=== PATIENT | male | born 1980 | race Caucasian/White ===

== ENCOUNTER 2016-11-20 08:48 | Inpatient (IN) | payer MEDICARE, MEDICAID ==
[~2016-11-20] VITALS: Ht 180.3 cm; Wt 114.1 kg
[2016-11-20] MEDS ORDERED: levETIRAcetam 500 MG/5 ML VIAL (KEPPRA IV)(J1953) As Ordered ONE ×2 (09:03→14:11)
[2016-11-20] MEDS ORDERED: LORazepam 2 MG/ML VIAL (J2060) As Ordered ONE (09:03)
--- NOTE | 2016-11-20 09:28 | REP ---
Clinical: Chest pain. Comparison: 04/14/2014. Findings: Tracheostomy overlies the airway. Mediastinum and cardiac silhouette stable. Lung josue demonstrate chronic changes. No acute consolidation, effusion, or pneumothorax. Skeletal structures intact. Impression: No acute cardiopulmonary process. Signed by Alexei Teixeira MD 11/20/2016 09:19 A
[2016-11-20 09:55] LABS: ALBUMIN 4.6 GM/DL (3.2-5.2); ALBUMIN/GLOBULIN RATIO 1.15 (1.00-1.93); ALKALINE PHOSPHATASE 125 U/L (45-117); ALT/SGPT 56 U/L (12-78); ANION GAP 29 MEQ/L (8-16); AST/SGOT 38 U/L (15-37); BILIRUBIN,DIRECT 0.1 MG/DL (0.0-0.2); BILIRUBIN,TOTAL 0.3 MG/DL (0.2-1.0); BLOOD UREA NITROGEN 5 MG/DL (7-18); CALCIUM LEVEL 9.2 MG/DL (8.5-10.1); CARBON DIOXIDE LEVEL 9 MEQ/L (21-32); CHLORIDE LEVEL 97 MEQ/L (98-107); CREATININE FOR GFR 1.27 MG/DL (0.70-1.30); GLOMERULAR FILTRATION RATE > 60.0 (>60); GLUCOSE, FASTING 129 MG/DL (70-105); POTASSIUM SERUM 4.1 MEQ/L (3.5-5.1); SODIUM LEVEL 135 MEQ/L (136-145); TOTAL PROTEIN 8.6 GM/DL (6.4-8.2)
[2016-11-20 10:06] LABS: MEAN CORPUSCULAR HGB CONC 33.6 g/dl (32.0-36.5); MEAN CORPUSCULAR VOLUME 95.2 fl (80.0-96.0); PLATELET COUNT, AUTOMATED 309 k/mm3 (150-450); RED CELL DISTRIBUTION WIDTH 12.7 % (11.5-14.5); WHITE BLOOD COUNT 12.7 K/mm3 (4.0-10.0)
[2016-11-20 10:21] LABS: AMPHETAMINES LEVEL URINE NEGATIVE (NEGATIVE); BENZODIAZEPINES URINE NEGATIVE (NEGATIVE); COCAINE METABOLITE URINE NEGATIVE (NEGATIVE); CONTROL LINE INT CTR LINE PRESENT; METHADONE URINE NEGATIVE (NEGATIVE); OPIATES URINE NEGATIVE (NEGATIVE); TRICYCLIC ANTIDEPRESS URINE NEGATIVE (NEGATIVE)
--- NOTE | 2016-11-20 10:27 | REP ---
Clinical: Seizures . Comparison: 04/14/2014 . Findings: Bilateral neurostimulator probes extend via parietal approach into the temporal lobes unchanged from prior examination. Significant metallic streak artifact along the right hemisphere due to stimulator control unit limit evaluation. Visualized weldon-white differentiation and intracranial parenchyma appear normal/stable. No acute intracranial hemorrhage or mass/mass effect is appreciated. No ventriculomegaly or hydrocephalous. No extra-axial collection identified. Impression: No obvious acute intracranial pathology. Signed by Alexei Teixeira MD 11/20/2016 10:19 A
[2016-11-20 10:32] LABS: ABG DEVICE NASAL CANN; ABG HCO3 19.6 MEQ/L (22.0-26.0); ABG PARTIAL PRESSURE CO2 35.8 mmHg (35.0-45.0); ABG PARTIAL PRESSURE O2 126.6 mmHg (75.0-100.0); ABG STANDARD HCO3 20.5 MEQ/L (22.0-26.0); ABG TOTAL CO2 20.7 MEQ/L (22.0-29.0); ABG pH (ARTERIAL) 7.357 UNITS (7.350-7.450)
[2016-11-20] MEDS ORDERED: KETOROLAC 30 MG/ML VIAL (J1885) As Ordered ONE (12:11)
[2016-11-20] MEDS ORDERED: LYRI300C PO (12:39)
[2016-11-20] MEDS ORDERED: MELA1TAB15 PO (12:39)
[2016-11-20] MEDS ORDERED: OLAN20TA PO (12:39)
[2016-11-20] MEDS ORDERED: KEPP1000 PO ×2 (12:39)
[2016-11-20] MEDS ORDERED: OXCA600T PO (12:39)
[2016-11-20] MEDS ORDERED: ISOVUE-370 76% 100ML VIAL (Q9967) As Ordered ONE (13:49)
--- NOTE | 2016-11-20 14:22 | REP ---
Clinical: Chest pain. Technique: Axial contrast enhanced images from the thoracic inlet to the upper abdomen using 100 ml Isovue 370 intravenous contrast material with coronal and sagittal re-formations. Findings: Satisfactory enhancement of the pulmonary vasculature is achieved and no filling defects are identified to suggest pulmonary embolus. Moderate left lower lobe, smaller right lower lobe and minimal right upper lobe consolidations consistent with multifocal pneumonia / atelectasis. No pleural effusion/reaction or pneumothorax. Thoracic aorta is normal caliber without aneurysm or dissection. Heart and pericardium are normal. No adenopathy. Impression: No evidence for pulmonary embolus. Left lower lobe > right lower lobe >> right upper lobe consolidation/atelectasis Signed by Alexei Teixeira MD 11/20/2016 02:13 P
[2016-11-20] MEDS ORDERED: NS 1,000 ML IV SCH (14:42)
[2016-11-20] MEDS ORDERED: ACETAMINOPHEN TAB 650MG DOSE (2X325MG) PO PRN (14:45)
[2016-11-20] MEDS ORDERED: OXcarbazepine 300 MG TAB PO ONE (15:00)
[2016-11-20] MEDS ORDERED: LORazepam 2 MG/ML VIAL (J2060) IV PRN (15:30)
[2016-11-20] MEDS ORDERED: PIPERACILLIN/TAZOBACTAM SOD 3.375 GM in D5W MINI-BAG PLUS 50 ML IV SCH (17:00)
[2016-11-20] MEDS ORDERED: MULTIVITAMIN -ADULT INJECTION 10 ML, THIAMINE INJection 100 MG, FOLIC ACID 1 MG in NS 1... IV ONE (18:00)
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
--- NOTE | 2016-11-20 18:07 | ECGEPIP ---
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
[2016-11-20 18:26] VITALS: BP 146/85
[2016-11-20 18:50] VITALS: BP 146/85
[2016-11-20 20:00] VITALS: BP 136/77
[2016-11-20] MEDS ORDERED: ZOSYN 3.375 GM VIAL (J2543) As Ordered ONE (20:14)
[2016-11-20] MEDS ORDERED: levETIRAcetam 250MG TABLET (KEPPRA) As Ordered ONE (20:43)
[2016-11-20] MEDS: CYANOCOBALAMIN 500 MCG TAB PO SCH (20:55)
[2016-11-20] MEDS: PIPERACILLIN/TAZOBACTAM SOD 3.375 GM in D5W MINI-BAG PLUS 50 ML IV SCH (20:55)
[2016-11-20] MEDS: OLANZapine 10 MG TAB PO SCH (20:55)
[2016-11-20] MEDS: OXcarbazepine 300 MG TAB PO SCH (20:56)
[2016-11-20] MEDS: levETIRAcetam 250MG TABLET (KEPPRA) PO SCH (21:00)
[2016-11-20] MEDS ORDERED: IPRATROPIUM 0.5MG/ALBUTEROL 2.5MG INH SOL UD 3ML (DUONEB)(J7620) NEB PRN (21:30)
[2016-11-20] MEDS ORDERED: IPRATROPIUM 0.5MG/ALBUTEROL 2.5MG INH SOL UD 3ML (DUONEB)(J7620) As Ordered ONE (23:45)
[2016-11-21] VITALS (7 sets, daily range): BP systolic 110–141; BP diastolic 67–90
[2016-11-21] MEDS ORDERED: ZOSYN 3.375 GM VIAL (J2543) As Ordered ONE ×3 (03:14→14:57)
[2016-11-21] MEDS: PIPERACILLIN/TAZOBACTAM SOD 3.375 GM in D5W MINI-BAG PLUS 50 ML IV SCH ×4 (03:18→21:16)
[2016-11-21 06:49] LABS: MEAN CORPUSCULAR HGB CONC 35.8 g/dl (32.0-36.5); WHITE BLOOD COUNT 8.6 K/mm3 (4.0-10.0)
[2016-11-21 06:58] LABS: MEAN CORPUSCULAR VOLUME 89.3 fl (80.0-96.0)
[2016-11-21 07:16] LABS: ANION GAP 8 MEQ/L (8-16); BLOOD UREA NITROGEN 6 MG/DL (7-18); CALCIUM LEVEL 8.7 MG/DL (8.5-10.1); CARBON DIOXIDE LEVEL 25 MEQ/L (21-32); CHLORIDE LEVEL 108 MEQ/L (98-107); CREATININE FOR GFR 0.79 MG/DL (0.70-1.30); GLOMERULAR FILTRATION RATE > 60.0 (>60); GLUCOSE, FASTING 89 MG/DL (70-105); POTASSIUM SERUM 3.6 MEQ/L (3.5-5.1); SODIUM LEVEL 141 MEQ/L (136-145)
[2016-11-21] MEDS: levETIRAcetam 250MG TABLET (KEPPRA) PO SCH ×2 (09:10→21:16)
[2016-11-21] MEDS: MULTIVITAMINS/MINERALS THERAP 1 TAB PO SCH (09:10)
[2016-11-21] MEDS: THIAMINE 100 MG TAB PO SCH (09:11)
[2016-11-21] MEDS: ENOXAPARIN 40 MG/0.4 ML SYRINGE (J1650) SC SCH (09:11)
[2016-11-21] MEDS: CYANOCOBALAMIN 500 MCG TAB PO SCH ×2 (09:11→21:13)
[2016-11-21] MEDS: OXcarbazepine 300 MG TAB PO SCH ×2 (09:21→21:12)
--- NOTE | 2016-11-21 15:10 | EDDOCDS ---
Physician Documentation [facility] Name: Glen Santizo Age: 36 yrs Sex: Male : 1980 Arrival Date: 11/20/2016 Time: 08:48 Bed Admit Hold Private MD: Disposition: 11/20/16 15:20 Hospitalization ordered by Brianda Greene for Inpatient Admission. Preliminary diagnosis is Epilepsy and recurrent seizures. - Bed requested for PCU. - Status is Inpatient Admission. me3 - Condition is Stable. - Problem is new. - Symptoms have improved. Historical: - Allergies: no known allergies; - PMHx: TBI; Seizure Disorder; - PSHx: Tracheostomy; Craniotomy; BRAIN STIMULATOR; - Social history: Smoking status: Patient uses tobacco products, heavy tobacco smoker. Patient uses alcohol on a daily basis. No barriers to communication noted, Speaks appropriately for age. - Family history: Not pertinent. - : The pt / caregiver states he / she is not on anticoagulants. Unable to Verify Home Med List with the patient / caregiver. - Exposure Risk Screening:: None identified. Vital Signs: 11/20 09:12 BP 124 / 67 (auto/); ml6 09:12 Pulse 130 MON; Resp 18; Temp 97.3(R); Pulse Ox 92% on R/A; Pain 0/10; ml6 09:27 BP 132 / 68 (auto/); ml6 09:27 Pulse 122 MON; Resp 18; Pulse Ox 92% on R/A; Pain 0/10; ml6 09:57 BP 127 / 80 (auto/); ml6 09:57 Pulse 112 MON; Resp 20; Pulse Ox 85% on R/A; ml6 10:27 BP 132 / 85 (auto/); ml6 10:27 Pulse 100 MON; Resp 16; Pulse Ox 93% on 100% Non-rebreather mask; Pain 0/10; ml6 10:57 BP 131 / 86 (auto/); ml6 10:57 Pulse 92 MON; Pulse Ox 98% on 100% Non-rebreather mask; ml6 11:27 BP 135 / 87 (auto/); ml6 11:28 Pulse 90 MON; Pulse Ox 86% on R/A; ml6 11:29 Pulse Ox 94% on 100% Non-rebreather mask; ml6 11:57 BP 138 / 79 (auto/); ml6 11:57 Pulse 84 MON; Pulse Ox 97% on 100% Non-rebreather mask; ml6 12:27 BP 143 / 80 (auto/); ml6 12:27 Pulse 88 MON; Pulse Ox 98% on 100% Non-rebreather mask; Pain 0/10; ml6 12:57 BP 170 / 86 (auto/); ml6 12:57 Pulse 104 MON; Pulse Ox 90% on 100% Non-rebreather mask; ml6 13:27 BP 147 / 78 (auto/); ml6 13:27 Pulse 88 MON; Pulse Ox 99% on 100% Non-rebreather mask; ml6 13:57 BP 124 / 68 (auto/); ml6 13:57 Pulse 102 MON; Resp 18; Pulse Ox 93% on 50% Venturi mask; ml6 15:14 BP 141 / 92 (auto/); ml6 15:14 Pulse 88 MON; Resp 18; Temp 98.4(O); Pulse Ox 92% on 50% Venturi mask; Pain 0/10; ml6 MDM: 08:56 Certified Paralegal/Pulse Ox/q 15 min VS ordered. fg 08:56 Accucheck ordered. fg 08:56 IV Saline Lock ordered. fg 08:56 Oxygen at 4L/Min NC or Home dosage ordered. fg 08:56 Rhythm Strip to chart ordered. fg 08:56 levETIRAcetam (20mg/kg) 1000 mg IVPB at 400 mL/hr once over 15 mins; dilute in 100mL NS fg or D5W ordered. 08:56 LORazepam 0.5 mg IVP once ordered. fg 08:57 Restraints, Adult: Mechanical - 4 points up to 1 hr (poses imminent danger of harming fg others). May use manual restraints to secure restraint devices. Pt. monitoring per RN policy. ordered. 08:57 Acetaminophen Level Ordered. EDMS 08:57 CBC with Diff Ordered. EDMS 08:57 Cardiac Injury Profile Ordered. EDMS 08:57 Drug Eval Toxicology ED Only Ordered. EDMS 08:57 Liver Profile Ordered. EDMS 08:57 MED Profile Ordered. EDMS 08:57 Salicylate Level Ordered. EDMS 08:57 Thyroid Stimulating Hormone Ordered. EDMS 08:57 Troponin Ordered. EDMS 08:57 Urinalysis Ordered. EDMS 08:57 Levetiracetam (short red top tube) Ordered. EDMS 08:57 Urine Culture Ordered. EDMS 08:58 Chest, 1 View Ordered. EDMS 08:58 ECG WITH READING ER PHYS+CARDIAG ordered. EDMS 09:04 OXCARBAZEPINE Ordered. EDMS 09:13 NS 0.9% 1000 ml IV at bolus once ordered. fg 09:14 CT Head Without Contrast Ordered. EDMS 09:25 Fingerstick Blood Sugar Ordered. EDMS 10:06 Ethyl Alcohol (ethanol) Ordered. EDMS 10:08 DIFFERENTIAL NO CHARGE Ordered. EDMS 10:08 PLATELET ESTIMATE Ordered. EDMS 10:14 Oxygen at 15 Liters/Minute NRB Mask ordered. ml6 10:15 -Arterial Blood Gas Ordered. EDMS 10:57 Financial registration complete. lg 10:59 [facility] Payment Agreement was scanned into [employer] and attached to record. lg 12:08 ketorolac 30 mg IVP once ordered. fg 13:02 BED REQUEST+ADM ordered. EDMS 13:29 CT Chest Angio R/O PE Ordered. EDMS 14:09 levETIRAcetam (20mg/kg) 1000 mg IVPB at 400 mL/hr once over 15 mins; dilute in 100mL NS fg or D5W ordered. 14:12 OXcarbazepine 900 mg PO once ordered. fg 14:46 Admission / Observation Status ordered. EDMS 14:46 NPO DIET ordered. EDMS 19:32 COMPLETE BLOOD COUNT Ordered. EDMS 19:32 BASIC METABOLIC PROFILE Ordered. EDMS 19:42 T-Sheet-- Draft Copy was scanned into [employer] and attached to record. klr 11/21 06:56 CREATINE PHOSPHOKINASE Ordered. EDMS 06:56 C REACTIVE PROTEIN QUANTITATIV Ordered. EDMS Administered Medications: 11/20 09:07 Drug: LORazepam 0.5 mg [lorazepam 2 mg/mL injection solution (0.25 mL)] Route: IVP; js13 Site: left hand; 09:08 Drug: levETIRAcetam (20mg/kg) 1000 mg [levetiracetam 500 mg/5 mL intravenous solution] js13 Route: IVPB; Rate: 400 mL/hr; Infused Over: 15 mins; Site: left hand; 09:22 Drug: NS 0.9% 1000 ml [sodium chloride 0.9 % intravenous solution] Route: IV; Rate: ml6 bolus; Site: left hand; 12:13 Drug: ketorolac 30 mg [ketorolac 30 mg/mL (1 mL) injection solution (1 mL)] Route: IVP; ml6 Site: left hand; 14:15 Drug: levETIRAcetam (20mg/kg) 1000 mg [levetiracetam 500 mg/5 mL intravenous solution] js13 Route: IVPB; Rate: 400 mL/hr; Infused Over: 15 mins; Site: right forearm; 15:19 Drug: OXcarbazepine 900 mg Route: PO; ml6 Signatures: Dispatcher [employer] EDMS Jeanine Amador, Teddy Reg lg Maura Canales,HEAD OF SALES PROMOTION HEAD OF SALES PROMOTION me3 Linda Haney mt4 Casimiro Ram, POONAM RN ml6 Jaja Mendoza MD MD Nisa Decker Jennifer RN js13 The chart was reviewed and I authenticate all verbal orders and agree with the evaluation and treatment provided.Corrections: (The following items were deleted from the chart) 10:08 10:06 URINE CULTURE+SYBIL ordered. EDMS EDMS 10:09 10:06 URINALYSIS+LAB ordered. EDMS EDMS 16:06 16:03 C REACTIVE PROTEIN QUANTITATIV ordered. EDMS EDMS 11/21 06:56 06:46 CREATINE PHOSPHOKINASE ordered. EDMS EDMS 06:57 06:46 C REACTIVE PROTEIN QUANTITATIV ordered. EDMS EDMS Attachments: 11/20 10:59 [facility] [place] [facility] Payment Agreement lg 19:42 T-Sheet-- Draft Copy klr MTDD
--- NOTE | 2016-11-21 15:11 | EDDOCDS ---
Nurse's Notes [facility] Name: Shubham Burnett Age: 36 yrs Sex: Male : 1980 Arrival Date: 11/20/2016 Time: 08:48 Bed Admit Hold Private MD: Diagnosis: Epilepsy and recurrent seizures Presentation: 11/20 09:18 Presenting complaint: Patient states: EMS brought patient, patient Actively seizing, ml6 per sister patient was drinking. Adult Sepsis Screening: The patient does not have new or worsening altered mentation. Patient's respiratory rate is less than 22. Systolic blood pressure is greater than 100. Patient has a qSOFA score of 0- Negative Sepsis Screen. Suicide/Homicide risk assessment- the patient denies having any suicidal and/or homicidal ideations and does not present with any other emotional, behavioral or mental health complaints. Status: Patient is not a representative personal service or dependent. Transition of care: patient was not received from another setting of care. 09:18 Acuity: SHERITA Level 2 ml6 09:18 Method Of Arrival: Ambulance 6 09:18 Care prior to arrival: See EMS report. FS 143. ml6 Triage Assessment: 09:18 General: Appears in no apparent distress, Behavior is uncooperative, postictal. Pain: ml6 Denies pain. HIV screening NA for this visit Offered previously. Neurological: No deficits noted. Level of Consciousness is awake, alert, Oriented to person, place, time. Cardiovascular: No deficits noted. Capillary refill < 3 seconds is brisk in bilateral fingers toes Heart tones S1 S2 present Edema is absent. Pulses are all present. Rhythm is regular. Respiratory: No deficits noted. Airway is patent Respiratory effort is even, unlabored, Respiratory pattern is regular, symmetrical, Breath sounds are clear bilaterally. GI: No deficits noted. Abdomen is flat, non- distended Bowel sounds present X 4 quads. Historical: - Allergies: no known allergies; - PMHx: TBI; Seizure Disorder; - PSHx: Tracheostomy; Craniotomy; BRAIN STIMULATOR; - Social history: Smoking status: Patient uses tobacco products, heavy tobacco smoker. Patient uses alcohol on a daily basis. No barriers to communication noted, Speaks appropriately for age. - Family history: Not pertinent. - : The pt / caregiver states he / she is not on anticoagulants. Unable to Verify Home Med List with the patient / caregiver. - Exposure Risk Screening:: None identified. Screenin:47 Screening information is obtained from the patient. Fall risk: At risk due to prior ml6 history of falls. Assistance ADL's: requires no assistance with activities of daily living. Abuse/DV Screen: The patient / caregiver reports he/she is: not in a situation that causes fear, pain or injury. Nutritional screening: No deficits noted. Advance Directives: Currently, there is no health care proxy. home support is adequate. Assessment: 09:18 General: see triage assessment. ml6 10:16 General: patient placed on NRB at 15l/min, SaO2 85% RA, Dr. Mendoza notified of change, . ml6 10:17 General: Appears in no apparent distress, Behavior is appropriate for age, cooperative. ml6 Pain: Denies pain. Neurological: No deficits noted. Level of Consciousness is awake, alert, Oriented to person, place, time, Mica [employer] Blasting are equal bilaterally Moves all extremities. Full function Gait is steady, Speech is normal, Facial symmetry appears normal, Pupils are PERRLA. Cardiovascular: No deficits noted. Respiratory: No deficits noted. 11:50 General: at this time pt's friend asked this rn if the pt could remove his mask. this mb9 rn advised friend that he shouldn't remove the mask. when this rn went into assess pt pt had mask off and his spo2 was 92-93% on room air. pt was told he needs to return the mask. pt complied. . 12:00 General: Appears in no apparent distress, comfortable, Behavior is appropriate for age, ml6 cooperative. Pain: Denies pain. Neurological: No deficits noted. Level of Consciousness is awake, alert, Oriented to person, place, time. Cardiovascular: No deficits noted. Respiratory: No deficits noted. Airway is patent. 13:00 General: called to room by patient's family, states that patient is having his usual ml6 seizure activity, patient is spitting in a cup and legs have become ridgid. Dr. Mendoza called to room, incident lasted 2 minutes. 14:00 General: Appears in no apparent distress, comfortable, Behavior is appropriate for age, ml6 cooperative. Pain: Denies pain. Neurological: No deficits noted. Level of Consciousness is awake, alert, Oriented to person, place, time, Mica Miner Blasting are equal bilaterally Moves all extremities. Full function Gait is steady. Cardiovascular: No deficits noted. Respiratory: No deficits noted. Airway is patent Respiratory effort is even, unlabored, Respiratory pattern is regular, symmetrical, Breath sounds are clear bilaterally. 15:00 Reassessment: Patient appears in no apparent distress at this time. Patient denies pain ml6 at this time. Patient states feeling better. Patient states symptoms have improved. Vital Signs: 09:12 BP 124 / 67 (auto/); ml6 09:12 Pulse 130 MON; Resp 18; Temp 97.3(R); Pulse Ox 92% on R/A; Pain 0/10; ml6 09:27 BP 132 / 68 (auto/); ml6 09:27 Pulse 122 MON; Resp 18; Pulse Ox 92% on R/A; Pain 0/10; ml6 09:57 BP 127 / 80 (auto/); ml6 09:57 Pulse 112 MON; Resp 20; Pulse Ox 85% on R/A; ml6 10:27 BP 132 / 85 (auto/); ml6 10:27 Pulse 100 MON; Resp 16; Pulse Ox 93% on 100% Non-rebreather mask; Pain 0/10; ml6 10:57 BP 131 / 86 (auto/); ml6 10:57 Pulse 92 MON; Pulse Ox 98% on 100% Non-rebreather mask; ml6 11:27 BP 135 / 87 (auto/); ml6 11:28 Pulse 90 MON; Pulse Ox 86% on R/A; ml6 11:29 Pulse Ox 94% on 100% Non-rebreather mask; ml6 11:57 BP 138 / 79 (auto/); ml6 11:57 Pulse 84 MON; Pulse Ox 97% on 100% Non-rebreather mask; ml6 12:27 BP 143 / 80 (auto/); ml6 12:27 Pulse 88 MON; Pulse Ox 98% on 100% Non-rebreather mask; Pain 0/10; ml6 12:57 BP 170 / 86 (auto/); ml6 12:57 Pulse 104 MON; Pulse Ox 90% on 100% Non-rebreather mask; ml6 13:27 BP 147 / 78 (auto/); ml6 13:27 Pulse 88 MON; Pulse Ox 99% on 100% Non-rebreather mask; ml6 13:57 BP 124 / 68 (auto/); ml6 13:57 Pulse 102 MON; Resp 18; Pulse Ox 93% on 50% Venturi mask; ml6 15:14 BP 141 / 92 (auto/); ml6 15:14 Pulse 88 MON; Resp 18; Temp 98.4(O); Pulse Ox 92% on 50% Venturi mask; Pain 0/10; ml6 Vitals: 09:21 Log In Time N/A - ambulance arrival. ml6 ED Course: 08:49 Patient visited by Sheila Reilly PCA. ar3 08:49 Patient moved to Waiting ar3 08:49 Patient moved to 4 ar3 08:57 Jaja Mendoza MD is Attending Physician. fg 08:57 Patient visited by Jaja Mendoza MD. fg 09:09 EKG done. (by ED staff). Reviewed by Jaja Mendoza MD. jlf 09:16 Patient visited by Michelle Stevenson PCA. jlf 09:18 Inserted peripheral IV: 20gauge IV in left antecubital area and blood collected. ml6 Patient tolerated the procedure well. 09:18 Inserted peripheral IV: 18gauge IV in right forearm Patient tolerated the procedure ml6 well. No procedures done that require assistance. 09:19 Triage Initiated ml6 09:47 Patient visited by Casimiro Ram RN. ml6 09:47 Chest, 1 View Returned. EDMS 10:15 Patient visited by Michelle Stevenson PCA. jlf 10:16 DIFFERENTIAL NO CHARGE Sent. ml6 10:26 -Arterial Blood Gas Sent. lb 10:44 O2 via non-rebreather \T\ 15L/min. ml6 10:48 Patient visited by Casimiro Ram RN. ml6 10:55 CT Head Without Contrast Returned. EDMS 10:59 Patient name changed from Shubham\S\\S\Darlyn\S\ to Shubham\S\L\S\Darlyn. EDMS 10:59 [place] [place] was scanned into [employer] and attached to record. lg 11:25 Patient visited by Casimiro Ram RN. ml6 11:58 Patient visited by Casimiro Ram RN. ml6 13:08 Patient visited by Jaja Mendoza MD. fg 13:44 Patient visited by Casimiro Ram RN. ml6 14:15 Patient visited by Casimiro Ram RN. ml6 14:18 Brianda Greene imaging administrator. ys2 14:31 CT Chest Angio R/O PE Returned. EDMS 15:19 Brianda Greene is Hospitalizing Provider. fg 17:49 Patient moved to Admit Hold js13 18:33 EKG-ADULT Returned. EDMS 19:42 T-Sheet-- Draft Copy was scanned into [employer] and attached to record. klr 11/21 14:54 The patient / caregiver is instructed regarding the plan of care and ED course. Patient me3 has correct armband on for positive identification. Placed in gown. Seizure precautions initiated. Administered Medications: 11/20 09:07 Drug: LORazepam 0.5 mg [lorazepam 2 mg/mL injection solution (0.25 mL)] Route: IVP; js13 Site: left hand; 09:08 Drug: levETIRAcetam (20mg/kg) 1000 mg [levetiracetam 500 mg/5 mL intravenous solution] js13 Route: IVPB; Rate: 400 mL/hr; Infused Over: 15 mins; Site: left hand; 09:22 Drug: NS 0.9% 1000 ml [sodium chloride 0.9 % intravenous solution] Route: IV; Rate: ml6 bolus; Site: left hand; 12:13 Drug: ketorolac 30 mg [ketorolac 30 mg/mL (1 mL) injection solution (1 mL)] Route: IVP; ml6 Site: left hand; 14:15 Drug: levETIRAcetam (20mg/kg) 1000 mg [levetiracetam 500 mg/5 mL intravenous solution] js13 Route: IVPB; Rate: 400 mL/hr; Infused Over: 15 mins; Site: right forearm; 15:19 Drug: OXcarbazepine 900 mg Route: PO; ml6 RT: 10:26 ABG's drawn from right radial artery allens test done and positive pressure held for 5 lb minutes no bleeding noted pressure bandage applied specimen sent pt. tolerated well. Order Results: Lab Order: Acetaminophen Level; SPEC'M 11/20/16 09:13 Test: ACETAMINOPHEN LEVEL; Value: < 2.0; Range: 10.0-30.0; Abnormal: Below low normal; Units: UG/ML; Status: F Lab Order: CBC with Diff; SPEC'M 11/20/16 09:13 Test: WHITE BLOOD COUNT; Value: 12.7; Range: 4.0-10.0; Abnormal: Above high normal; Units: K/mm3; Status: F Test: RED BLOOD COUNT; Value: 5.53; Range: 4.30-6.10; Units: M/mm3; Status: F Test: HEMOGLOBIN; Value: 17.7; Range: 14.0-18.0; Units: g/dl; Status: F Test: HEMATOCRIT; Value: 52.7; Range: 42.0-52.0; Abnormal: Above high normal; Units: %; Status: F Test: MEAN CORPUSCULAR VOLUME; Value: 95.2; Range: 80.0-96.0; Units: fl; Status: F Test: MEAN CORPUSCULAR HEMOGLOBIN; Value: 32.0; Range: 27.0-33.0; Units: pg; Status: F Test: MEAN CORPUSCULAR HGB CONC; Value: 33.6; Range: 32.0-36.5; Units: g/dl; Status: F Test: RED CELL DISTRIBUTION WIDTH; Value: 12.7; Range: 11.5-14.5; Units: %; Status: F Test: PLATELET COUNT, AUTOMATED; Value: 309; Range: 150-450; Units: k/mm3; Status: F Test: NEUTROPHILS; Value: 84; Range: 35-75; Abnormal: Above high normal; Units: %; Status: F Test: LYMPHOCYTES; Value: 12; Range: 16-52; Abnormal: Below low normal; Units: %; Status: F Test: MONOCYTES; Value: 3; Range: 0-8; Units: %; Status: F Test: ATYPICAL LYMPH; Value: 1; Range: 0-5; Units: %; Status: F Test: RBC MORPHOLOGY; Value: NORMAL; Status: F Lab Order: Cardiac Injury Profile; SPECM 11/20/16 09:13 Test: CPK CREATINE PHOSPHOKINASE; Value: 280; Range: 39-308; Units: U/L; Status: F Test: CK-MB VALUE MASS; Value: 1.3; Range: 0.0-3.6; Units: NG/ML; Status: F Test: MB/CK RELATIVE INDEX; Value: 0.46; Range: < OR =4; Status: F Test Note: ; DIAGNOSIS CRITERIA MMB ng/ml Relative Index (RI) NON-AMI < or = 5 N/A KELSEY ZONE > 5 < or = 4 AMI > 5 > 4 Lab Order: Drug Eval Toxicology ED Only; SPEC'M 11/20/16 09:13 Test: AMPHETAMINES LEVEL URINE; Value: NEGATIVE; Range: NEGATIVE; Status: F Test: BARBITURATES URINE; Value: NEGATIVE; Range: NEGATIVE; Status: F Test: BENZODIAZEPINES URINE; Value: NEGATIVE; Range: NEGATIVE; Status: F Test: CANNABINOIDS URINE; Value: NEGATIVE; Range: NEGATIVE; Status: F Test: COCAINE METABOLITE URINE; Value: NEGATIVE; Range: NEGATIVE; Status: F Test: METHADONE URINE; Value: NEGATIVE; Range: NEGATIVE; Status: F Test: OPIATES URINE; Value: NEGATIVE; Range: NEGATIVE; Status: F Test: TRICYCLIC ANTIDEPRESS URINE; Value: NEGATIVE; Range: NEGATIVE; Status: F Test Note: ; ALL PRESUMPTIVE POSITIVE FINDINGS ARE UNCONFIRMED NORMAL VALUES THRESHOLD IN NG/ML AMPHETAMINES 1000 METHAMPHETAMINES 1000 BARBITURATES 300 BENZODIAZEPINES 300 CANNABINOIDS (THC) 50 COCAINE METABOLITE 300 METHADONE 300 OPIATES 300 PHENCYCLIDINE 25 TRICYCLIC ANTIDEPRESSANTS 1000 RESULTS ARE FOR MEDICAL PURPOSES ONLY. ALL URINE SPECIMENS WILL BE SAVED FOR 3 DAYS. IF CONFIRMATION OF A PRESUMPTIVE POSTIVE SCREEN RESULT IS DESIRED, CALL CHEMISTRY ([phone]) AND REQUEST URINE TO BE SENT TO REFERENCE LAB. FOR A LIST OF CLOSELY RELATED COMPOUNDS PLEASE CALL THE LAB. Lab Order: Liver Profile; SPEC'M 11/20/16 09:13 Test: AST/SGOT; Value: 38; Range: 15-37; Abnormal: Above high normal; Units: U/L; Status: F Test: ALT/SGPT; Value: 56; Range: 12-78; Units: U/L; Status: F Test: ALKALINE PHOSPHATASE; Value: 125; Range: 45-117; Abnormal: Above high normal; Units: U/L; Status: F Test: BILIRUBIN,TOTAL; Value: 0.3; Range: 0.2-1.0; Units: MG/DL; Status: F Test: BILIRUBIN,DIRECT; Value: 0.1; Range: 0.0-0.2; Units: MG/DL; Status: F Test: TOTAL PROTEIN; Value: 8.6; Range: 6.4-8.2; Abnormal: Above high normal; Units: GM/DL; Status: F Test: ALBUMIN; Value: 4.6; Range: 3.2-5.2; Units: GM/DL; Status: F Test: ALBUMIN/GLOBULIN RATIO; Value: 1.15; Range: 1.00-1.93; Status: F Lab Order: MED Profile; SPEC11/20/16 09:13 Test: GLUCOSE, FASTING; Value: 129; Range: 70-105; Abnormal: Above high normal; Units: MG/DL; Status: F Test: BLOOD UREA NITROGEN; Value: 5; Range: 7-18; Abnormal: Below low normal; Units: MG/DL; Status: F Test: CREATININE FOR GFR; Value: 1.27; Range: 0.70-1.30; Units: MG/DL; Status: F Test: GLOMERULAR FILTRATION RATE; Value: > 60.0; Range: >60; Status: F Test: SODIUM LEVEL; Value: 135; Range: 136-145; Abnormal: Below low normal; Units: MEQ/L; Status: F Test: POTASSIUM SERUM; Value: 4.1; Range: 3.5-5.1; Units: MEQ/L; Status: F Test: CHLORIDE LEVEL; Value: 97; Range: 98-107; Abnormal: Below low normal; Units: MEQ/L; Status: F Test: CARBON DIOXIDE LEVEL; Value: 9; Range: 21-32; Abnormal: Below low normal; Units: MEQ/L; Status: F Test: ANION GAP; Value: 29; Range: 8-16; Abnormal: Above high normal; Units: MEQ/L; Status: F Test: CALCIUM LEVEL; Value: 9.2; Range: 8.5-10.1; Units: MG/DL; Status: F Test Note: ; Units are mL/min/1.73 m2 Chronic Kidney Disease Staging per NKF: Stage I & II GFR >=60 Normal to Mildly Decreased Stage III GFR 30-59 Moderately Decreased Stage IV GFR 15-29 Severely Decreased Stage V GFR <15 Very Little GFR Left ESRD GFR <15 on INSOLE REINFORCER Lab Order: Salicylate Level; SPEC11/20/16 09:13 Test: SALICYLATE LEVEL; Value: 5.2; Range: 5.0-30.0; Units: MG/DL; Status: F Lab Order: Thyroid Stimulating Hormone; SPEC'M 11/20/16 09:13 Test: THYROID STIMULATING HORMONE; Value: 1.550; Range: 0.358-3.740; Units: uIU/ML; Status: F Lab Order: Troponin; SPEC'M 11/20/16 09:13 Test: TROPONIN I; Value: < 0.02; Range: < 0.10; Units: NG/ML; Status: F Test Note: ; Troponin I Reference Interval for [employer] LOCI: 99th Percentile= 0.00-0.045 ng/ml Risk Stratification: <= 0.10 ng/ml Decreased Risk for Adverse Clinical Events. 0.10-1.50 ng/ml Increased Risk for Adverse Clinical Events. Evaluation of additional criterion and/or repeat testing in 2-6 hours is suggested to rule out myocardial damage. >= 1.50 ng/ml Indicative of Myocardial Injury. Lab Order: Urinalysis; SPEC'M 11/20/16 09:13 Test: APPEARANCE, URINE; Value: CLEAR; Range: CLEAR; Status: F Test: COLOR, URINE; Value: YELLOW; Range: YELLOW; Status: F Test: PH,URINE; Value: 5.0; Range: 5.0-9.0; Units: UNITS; Status: F Test: SPECIFIC GRAVITY URINE AUTO; Value: 1.012; Range: 1.002-1.035; Status: F Test: PROTEIN, URINE AUTO; Value: 1+; Range: NEGATIVE; Abnormal: Above high normal; Units: mg/dL; Status: F Test: GLUCOSE, URINE (UA) AUTO; Value: NEGATIVE; Range: NEGATIVE; Units: mg/dL; Status: F Test: KETONE, URINE AUTO; Value: TRACE; Range: NEGATIVE; Abnormal: Above high normal; Units: mg/dL; Status: F Test: UROBILINOGEN, URINE AUTO; Value: 0.2; Range: 0.0-2.0; Units: mg/dL; Status: F Test: BILIRUBIN, URINE AUTO; Value: NEGATIVE; Range: NEGATIVE; Status: F Test: NITRITE, URINE AUTO; Value: NEGATIVE; Range: NEGATIVE; Status: F Test: LEUKOCYTE ESTERASE, URINE AUTO; Value: NEGATIVE; Range: NEGATIVE; Status: F Test: BLOOD, URINE BLOOD; Value: 1+; Range: NEGATIVE; Abnormal: Above high normal; Status: F Test: SPERM, URINE AUTO; Range: NONE; Status: I Test: WBC, URINE AUTO; Value: 1; Range: 0-3; Units: /HPF; Status: F Test: RBC, URINE AUTO; Value: 3; Range: 0-3; Units: /HPF; Status: F Test: BACTERIA, URINE AUTO; Value: NEGATIVE; Range: NEGATIVE; Status: F Test: SQUAMOUS EPITHELIAL CELL UR AU; Value: 0; Range: 0-6; Units: /HPF; Status: F Test: MUCUS, URINE; Value: SMALL; Range: NEGATIVE; Status: F Test: HYALINE CAST, URINE AUTO; Value: 6; Range: 0-1; Units: /LPF; Status: F Lab Order: Urine Culture; [facility] 11/20/16 09:13 Test: URINE CULTURE; Value: <EXTERNAL COMMENT eCWMed> FULL REPORT IN LAB NOTES (eCW and Medent).; Status: F Test: URINE CULTURE; Value: URINE CULTURE RESULT NO GROWTH CLINICAL SIGNIFICANCE 1 ORGANISM; Status: F Lab Order: Fingerstick Blood Sugar; [facility] 11/20/16 08:56 Test: BEDSIDE GLUCOSE; Value: 146; Range: 70-105; Abnormal: Above high normal; Units: MG/DL; Status: F Lab Order: Ethyl Alcohol (ethanol); [facility] 11/20/16 09:10 Test: ETHYL ALCOHOL (ETHANOL); Value: < 0.003; Range: 0.000-0.010; Units: %; Status: F Lab Order: PLATELET ESTIMATE; [facility] 11/20/16 09:13 Test: PLATELET ESTIMATE; Value: NORMAL; Range: NORMAL; Status: F Test Note: ; NO PLAT CLUMPING NOTED ON SLIDE. Lab Order: -Arterial Blood Gas; 11/20/16 10:24 Test: ABG pH (ARTERIAL); Value: 7.357; Range: 7.350-7.450; Units: UNITS; Status: F Test: ABG PARTIAL PRESSURE CO2; Value: 35.8; Range: 35.0-45.0; Units: mmHg; Status: F Test: ABG PARTIAL PRESSURE O2; Value: 126.6; Range: 75.0-100.0; Abnormal: Above high normal; Units: mmHg; Status: F Test: ABG TOTAL CO2; Value: 20.7; Range: 22.0-29.0; Abnormal: Below low normal; Units: MEQ/L; Status: F Test: ABG HCO3; Value: 19.6; Range: 22.0-26.0; Abnormal: Below low normal; Units: MEQ/L; Status: F Test: ABG BASE EXCESS; Value: -5.0; Range: -2.0-2.0; Abnormal: Below low normal; Status: F Test: ABG STANDARD HCO3; Value: 20.5; Range: 22.0-26.0; Abnormal: Below low normal; Units: MEQ/L; Status: F Test: ABG O2 SATURATION; Value: 98.6; Range: 95.0-99.0; Units: %; Status: F Test: ABG DEVICE; Value: NASAL JASPREET; Status: F Lab Order: C REACTIVE PROTEIN QUANTITATIV; SPEC' 11/20/16 09:13 Test: C REACTIVE PROTEIN QUANTITATIV; Value: 0.54; Range: 0.00-0.30; Abnormal: Above high normal; Units: MG/DL; Status: F Lab Order: COMPLETE BLOOD COUNT; SPEC11/21/16 06:34 Test: WHITE BLOOD COUNT; Value: 8.6; Range: 4.0-10.0; Units: K/mm3; Status: F Test: RED BLOOD COUNT; Value: 4.77; Range: 4.30-6.10; Units: M/mm3; Status: F Test: HEMOGLOBIN; Value: 15.2; Range: 14.0-18.0; Abnormal: Delta; Units: g/dl; Status: F Test: HEMATOCRIT; Value: 42.6; Range: 42.0-52.0; Units: %; Status: F Test: MEAN CORPUSCULAR VOLUME; Value: 89.3; Range: 80.0-96.0; Abnormal: Delta; Units: fl; Status: F Test: MEAN CORPUSCULAR HEMOGLOBIN; Value: 32.0; Range: 27.0-33.0; Units: pg; Status: F Test: MEAN CORPUSCULAR HGB CONC; Value: 35.8; Range: 32.0-36.5; Units: g/dl; Status: F Test: RED CELL DISTRIBUTION WIDTH; Value: 13.0; Range: 11.5-14.5; Units: %; Status: F Test: PLATELET COUNT, AUTOMATED; Value: 194; Range: 150-450; Abnormal: Delta; Units: k/mm3; Status: F Lab Order: BASIC METABOLIC PROFILE; SPEC'11/21/16 06:34 Test: GLUCOSE, FASTING; Value: 89; Range: 70-105; Units: MG/DL; Status: F Test: BLOOD UREA NITROGEN; Value: 6; Range: 7-18; Abnormal: Below low normal; Units: MG/DL; Status: F Test: CREATININE FOR GFR; Value: 0.79; Range: 0.70-1.30; Units: MG/DL; Status: F Test: GLOMERULAR FILTRATION RATE; Value: > 60.0; Range: >60; Status: F Test: SODIUM LEVEL; Value: 141; Range: 136-145; Units: MEQ/L; Status: F Test: POTASSIUM SERUM; Value: 3.6; Range: 3.5-5.1; Units: MEQ/L; Status: F Test: CHLORIDE LEVEL; Value: 108; Range: 98-107; Abnormal: Above high normal; Units: MEQ/L; Status: F Test: CARBON DIOXIDE LEVEL; Value: 25; Range: 21-32; Units: MEQ/L; Status: F Test: ANION GAP; Value: 8; Range: 8-16; Units: MEQ/L; Status: F Test: CALCIUM LEVEL; Value: 8.7; Range: 8.5-10.1; Units: MG/DL; Status: F Test Note: ; Units are mL/min/1.73 m2 Chronic Kidney Disease Staging per NKF: Stage I & II GFR >=60 Normal to Mildly Decreased Stage III GFR 30-59 Moderately Decreased Stage IV GFR 15-29 Severely Decreased Stage V GFR <15 Very Little GFR Left ESRD GFR <15 on INSOLE REINFORCER Lab Order: CREATINE PHOSPHOKINASE; SPEC' 11/21/16 06:34 Test: CPK CREATINE PHOSPHOKINASE; Value: 271; Range: 39-308; Units: U/L; Status: F Lab Order: C REACTIVE PROTEIN QUANTITATIV; SPEC11/21/16 06:34 Test: C REACTIVE PROTEIN QUANTITATIV; Value: 5.97; Range: 0.00-0.30; Abnormal: Above high normal; Units: MG/DL; Status: F Radiology Order: Chest, 1 View Test: Chest, 1 View REASON FOR EXAMINATION: Chest Pain; Clinical: Chest pain.; ; Comparison: 04/14/2014.; ; Findings:; Tracheostomy overlies the airway. Mediastinum and cardiac silhouette stable.; Lung josue demonstrate chronic changes. No acute consolidation, effusion, or; pneumothorax. 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: ; : 1980 Requested By: JAJA Parada; Order Number: [id number] Reading MD: Jose Gibson; Measurements; Intervals [place]; Rate: 136 P:; ME: 0 QRS: 71; QRSD: 105 T: 46; QT: 307; QTc: 463; Interpretive Statements; SINUS TACHYCARDIA; BORDERLINE RAD; INCOMPLETE RIGHT BUNDLE BRANCH BLOCK; ; Electronically Signed On 11-20-2016 18:07:08 EST by Jose Gibson; Radiology Order: CT Head Without Contrast Test: CT Head Without Contrast REASON FOR EXAMINATION: seizure; Clinical: Seizures .; ; Comparison: 04/14/2014 .; ; Findings:; Bilateral neurostimulator probes extend via parietal approach into the temporal; lobes unchanged from prior examination. Significant metallic streak artifact; along the right hemisphere due to stimulator control unit limit evaluation.; Visualized kelsey-white differentiation and intracranial parenchyma appear; normal/stable. No acute intracranial hemorrhage or mass/mass effect is; appreciated. No ventriculomegaly or hydrocephalous. No extra-axial collection; identified.; ; ; ; Impression:; No obvious acute intracranial pathology.; ; ; Signed by; Alexei Teixeira MD 11/20/2016 10:19 A; Radiology Order: CT Chest Angio R/O PE Test: CT Chest Angio R/O PE REASON FOR EXAMINATION: Chest Pain; Clinical: Chest pain.; ; Technique: Axial contrast enhanced images from the thoracic inlet to the upper; abdomen using 100 ml Isovue 370 intravenous contrast material with coronal and; sagittal re-formations.; ; Findings: Satisfactory enhancement of the pulmonary vasculature is achieved and; no filling defects are identified to suggest pulmonary embolus. Moderate left; lower lobe, smaller right lower lobe and minimal right upper lobe consolidations; consistent with multifocal pneumonia / atelectasis. No pleural effusion/reaction; or pneumothorax. Thoracic aorta is normal caliber without aneurysm or; dissection. Heart and pericardium are normal. No adenopathy.; ; Impression:; No evidence for pulmonary embolus.; Left lower lobe > right lower lobe >> right upper lobe consolidation/atelectasis; ; ; Signed by; Alexei Teixeira MD 11/20/2016 02:13 P; Outcome: 15:20 Decision to Hospitalize by Provider. fg 11/21 14:52 Discharge Assessment: patient administered narcotics - no. The following High [place] [facility] [place] are identified: None. Admitted to PCU accompanied by nurse, via stretcher, on monitor, with chart, Other Susie Pandya RN ED transported to PCU. Condition: stable. 14:54 CT Study completed. Property :Personal belongings accompany Pt. ma3 15:09 Patient left the ED. ma3 Signatures: Dispatcher [employer] EDMS Jeanine Amador, Reg Reg lg Theodore,Sagrario lb Maura Canales,CRUTCHING CONTRACTOR CRUTCHING CONTRACTOR me3 Casimiro Ram, RN RN ml6 Sheila Reilly, CLIENT RELATIONS SPECIALIST CLIENT RELATIONS SPECIALIST China Bradshaw,RN RN js13 Michelle Stevenson, CLIENT RELATIONS SPECIALIST CLIENT RELATIONS SPECIALIST Anshu Aguero,RN RN mb9 Jaja Mendoza MD MD Brianda Greene Kathie klr Corrections: (The following items were deleted from the chart) 11/20 13:23 13:00 General: called to room by patient's family, states that patient is having his ml6 usual seizure activity, patient is spitting in a cup and legs have become ridgid. 6 11/21 15:09 14:52 The following High Risk Discharge criteria are identified: None. Admitted to PCU me3 accompanied by nurse, via stretcher, on monitor, with chart, Other López Guzman RN ED transported to [place] [id number] MTDD
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
[2016-11-21] MEDS: OXAZEPAM 10 MG CAP PO SCH (21:13)
[2016-11-21] MEDS: OLANZapine 10 MG TAB PO SCH (21:13)
[2016-11-21] MEDS: PERCOCET 5MG/325MG TAB PO PRN (21:15)
[2016-11-22] VITALS: BP 133/91
[2016-11-22] MEDS: PIPERACILLIN/TAZOBACTAM SOD 3.375 GM in D5W MINI-BAG PLUS 50 ML IV SCH ×4 (03:52→20:18)
[2016-11-22 04:00] VITALS: BP 127/97
[2016-11-22] MEDS: OXAZEPAM 10 MG CAP PO SCH ×3 (05:18→21:18)
[2016-11-22] MEDS: PERCOCET 5MG/325MG TAB PO PRN ×3 (05:23→21:21)
[2016-11-22 05:26] LABS: MEAN CORPUSCULAR HEMOGLOBIN 31.6 pg (27.0-33.0); MEAN CORPUSCULAR HGB CONC 35.6 g/dl (32.0-36.5); MEAN CORPUSCULAR VOLUME 88.9 fl (80.0-96.0); RED CELL DISTRIBUTION WIDTH 12.9 % (11.5-14.5); WHITE BLOOD COUNT 6.7 K/mm3 (4.0-10.0)
[2016-11-22 05:51] LABS: ANION GAP 10 MEQ/L (8-16); BLOOD UREA NITROGEN 6 MG/DL (7-18); CALCIUM LEVEL 8.5 MG/DL (8.5-10.1); CARBON DIOXIDE LEVEL 26 MEQ/L (21-32); CHLORIDE LEVEL 103 MEQ/L (98-107); CREATININE FOR GFR 0.67 MG/DL (0.70-1.30); GLOMERULAR FILTRATION RATE > 60.0 (>60); GLUCOSE, FASTING 81 MG/DL (70-105); POTASSIUM SERUM 3.5 MEQ/L (3.5-5.1); SODIUM LEVEL 139 MEQ/L (136-145)
[2016-11-22 08:00] VITALS: BP 141/95
--- NOTE | 2016-11-22 09:43 | IPNPDOC ---
Text Note Date of Service The patient was seen on 11/22/16. NOTE Subjective: Patient is a 36-year-old male admitted with intractable seizure, aspiration pneumonia seen for hospitalist follow-up. Patient is complaining today of right rib soreness but does say it is getting getting better. He is currently rating his pain 6/10. Pain is worse with coughing (which is productive for phlegm, denies any hemoptysis), deep breathing. He denies any fevers, chills, sweats, chest pain/pressure, shortness breath or difficulty breathing, abdominal pain, nausea or vomiting. He has not had any new seizures. Overall he says he is getting better and does not have any acute concerns. Objective: Vital signs: Temperature 98.4, pulse 85, respiratory rate 18, blood pressure 141 /95, pulse ox 90% on room air Gen.: Patient awake, alert and oriented, verbal and able to answer questions appropriately. Patient does not appear to be in any acute distress Heart: Regular rate and rhythm, normal S1-S2. No murmurs, rubs, clicks or gallops Lungs: Bilateral wheezes and rhonchi, left sided >right Abdomen: Active bowel sounds, soft, nontender, no masses to palpation Extremities: No swelling in either lower extremity Musculoskeletal: Right lower ribs tender to palpation Laboratory data: CBC: 6.7, H&H 14.7/41.3, platelets 180 Chemistry: Sodium 139, potassium 3.5, chloride 103, carbon dioxide 26, BUN 6, creatinine 0.67, glucose 81, calcium 8.5 Assessment: Patient is a 36-year-old male admitted with intractable generalized tonic- clonic seizure and aspiration pneumonia. Patient has been seizure free and is medically improving from pneumonia. Plan: #1: Intractable generalized tonic-clonic seizures: Suspect seizures are secondary to pneumonia. Patient seizure medications have been adjusted by neurology. Patient has remained seizure free since admission. Patient will continue on current seizure medications as per neurology. We will check a Trileptal and Keppra level tomorrow morning. #2: Community-acquired pneumonia: Suspect patient had pneumonia first which triggered his intractable seizures. Patient will continue on Zosyn 3.375 g IV every 6 hours. If patient remains afebrile for the next 24 hours patient can be transitioned to oral antibiotics. Orders placed for incentive spirometry and to encourage ambulation. #3: Right-sided rib pain: Order placed for right-sided rib series. Follow-up results from imaging when available. #3: Alcohol abuse: Patient not showing any signs of withdrawal, has been alcohol free for 48 hours. Patient will continue on current Serax dose today. If patient remains seizure-free his dose can be tapered beginning tomorrow. Continue Ativan 1 mg IV every 2 hours when necessary as needed, patient has not required any Ativan thus far during hospitalization #4: History of airway collapse status post tracheostomy: Stable #5: DVT prophylaxis: Continue Lovenox 40 mg subcutaneously daily Disposition: Anticipate discharge within next 48 hours. My preceptor for this patient encounter was physically present in the building during the encounter and was fully available. As needed, all aspects of the patient interview, examination, medical decision making process, and medical care plan development were reviewed and approved by the preceptor. Preceptor is aware and concurs with the plan as stated in the body of this note and will attest to such by his/her Cyrus Chahal, I+O VSCyrus I+O Laboratory Tests 11/22/16 04:51 Calcium Level 8.5, Red Blood Count 4.64, Mean Corpuscular Volume 88.9, Mean Corpuscular Hemoglobin 31.6, Mean Corpuscular Hemoglobin Concent 35.6, Red Cell Distribution Width 12.9 Vital Signs Date Time Temp Pulse Resp B/P Pulse Ox O2 Delivery O2 Flow Rate FiO2 11/22/16 08:00 Room Air 11/22/16 08:00 98.4 85 18 141/95 90 11/21/16 04:00 50 11/20/16 20:00 15.0 I&O- Last 24 Hours up to 6 AM 11/22/16 06:00 Intake Total 1380 ml Output Total 400 ml Balance 980 ml NICOLE COVINGTON DO Nov 22, 2016 09:43
[2016-11-22] MEDS: OXcarbazepine 300 MG TAB PO SCH ×2 (09:56→20:18)
[2016-11-22] MEDS: THIAMINE 100 MG TAB PO SCH (09:56)
[2016-11-22] MEDS: levETIRAcetam 250MG TABLET (KEPPRA) PO SCH ×2 (09:56→20:17)
[2016-11-22] MEDS: CYANOCOBALAMIN 500 MCG TAB PO SCH ×2 (09:57→20:18)
[2016-11-22] MEDS: ENOXAPARIN 40 MG/0.4 ML SYRINGE (J1650) SC SCH (09:57)
[2016-11-22] MEDS: MULTIVITAMINS/MINERALS THERAP 1 TAB PO SCH (09:57)
--- NOTE | 2016-11-22 13:19 | REP ---
Clinical: Right chest pain . Technique: Frontal view of the chest with multiple views of the right hemithorax. Findings: Frontal view of the chest demonstrates no acute cardiopulmonary process. Multiple views of the right hemithorax demonstrates posterior nondisplaced ninth and tenth rib fractures Impression: Nondisplaced posterior ninth and tenth rib fractures. Signed by Alexei Teixeira MD 11/22/2016 01:11 P
[2016-11-22 13:50] VITALS: BP 122/86
[2016-11-22] MEDS: OLANZapine 10 MG TAB PO SCH (20:18)
[2016-11-22 22:00] VITALS: BP 129/85
[2016-11-23] MEDS: PIPERACILLIN/TAZOBACTAM SOD 3.375 GM in D5W MINI-BAG PLUS 50 ML IV SCH ×2 (03:33→08:17)
[2016-11-23 06:00] VITALS: BP 125/85
[2016-11-23] MEDS: OXAZEPAM 10 MG CAP PO SCH (06:00)
[2016-11-23] MEDS: PERCOCET 5MG/325MG TAB PO PRN (06:04)
[2016-11-23 06:14] LABS: MEAN CORPUSCULAR HEMOGLOBIN 32.2 pg (27.0-33.0); MEAN CORPUSCULAR HGB CONC 35.7 g/dl (32.0-36.5); MEAN CORPUSCULAR VOLUME 90.1 fl (80.0-96.0); RED CELL DISTRIBUTION WIDTH 12.7 % (11.5-14.5); WHITE BLOOD COUNT 4.4 K/mm3 (4.0-10.0)
[2016-11-23 06:28] LABS: ANION GAP 8 MEQ/L (8-16); BLOOD UREA NITROGEN 9 MG/DL (7-18); CALCIUM LEVEL 8.4 MG/DL (8.5-10.1); CARBON DIOXIDE LEVEL 30 MEQ/L (21-32); CHLORIDE LEVEL 102 MEQ/L (98-107); CREATININE FOR GFR 0.71 MG/DL (0.70-1.30); GLOMERULAR FILTRATION RATE > 60.0 (>60); GLUCOSE, FASTING 86 MG/DL (70-105); POTASSIUM SERUM 3.2 MEQ/L (3.5-5.1); SODIUM LEVEL 140 MEQ/L (136-145)
[2016-11-23] MEDS ORDERED: NAPROXEN 250 MG TAB PO PRN (07:45)
[2016-11-23] MEDS ORDERED: POTASSIUM CHLORIDE 10 MEQ SR TABLET PO ONE (08:00)
[2016-11-23] MEDS: OXcarbazepine 300 MG TAB PO SCH (08:16)
[2016-11-23] MEDS: levETIRAcetam 250MG TABLET (KEPPRA) PO SCH (08:16)
[2016-11-23] MEDS: THIAMINE 100 MG TAB PO SCH (08:16)
[2016-11-23] MEDS: MULTIVITAMINS/MINERALS THERAP 1 TAB PO SCH (08:17)
[2016-11-23] MEDS: CYANOCOBALAMIN 500 MCG TAB PO SCH (08:17)
[2016-11-23] MEDS: ENOXAPARIN 40 MG/0.4 ML SYRINGE (J1650) SC SCH (08:17)
[2016-11-23] MEDS ORDERED: OXCA300T PO (10:57)
[2016-11-23] MEDS ORDERED: AUGM875T27 PO (10:57)
[2016-11-23] MEDS ORDERED: NAPR250T45 PO (10:57)
--- NOTE | 2016-11-23 11:19 | DS.PDOC ---
Discharge Summary General Date of Admission Nov 20, 2016 at 14:42 Date of Discharge 11/23/16 Discharge Summary Consults: Dr. Kincaid (neurology) Discharge diagnosis: Intractable seizures Secondary diagnosis: Community-acquired pneumonia, right-sided rib fracture, alcohol abuse, history of airway collapse status post tracheostomy Hospital course: Patient was admitted on 10/20/16 for recurrent seizures. Patient was found to have pneumonia on chest CT on admission. Patient was admitted and started on IV Zosyn. Patient was seen in consult by Dr. Kincaid from neurology for intractable seizures. Dr. Kincaid increased patient's dose of Trileptal to 900 mg by mouth twice a day. On 11/22/16 patient was complaining of right-sided rib pain, had a rib series x-ray and was found to have fractures of ribs 9 and 10 which were nondisplaced. Patient steadily improved throughout his hospitalization, hospitalization was uncomplicated, patient did not have any recurrent seizures while hospitalized. Progress note on date of discharge: Subjective: Patient says he is feeling all right today. His right ribs are reported as sore. He reports that he has been up walking. He does not report any recurrent seizures. He denies any shortness of breath, difficulty breathing, fevers, chills, chest pain/pressure, abdominal pain, nausea or vomiting. Objective: Vitals: Temperature 97.3, pulse 66, respiratory rate 18, blood pressure 125/85, pulse ox 94% on room air Gen.: Patient awake, alert and oriented, verbal and able to answer questions appropriately. He does not appear to be in any acute distress Heart: Regular rate and rhythm, normal S1-S2. No murmurs, rubs, clicks or gallops Lungs: Bilateral lateral rhonchi which are improved from yesterday Abdomen: Active bowel sounds, soft, nontender, no masses to palpation Extremities: No swelling in either lower extremity Musculoskeletal: Right-sided rib tenderness to palpation Assessment: Patient is a 36-year-old male admitted for pneumonia and with intractable seizures. He is clinically improving, has not had any recurrence of seizure and is ready to be discharged home. Disposition: Discharge patient to home Follow-up: With primary care provider in 3-5 days, with his neurologist in [place] at next available Activity: As tolerated Diet: Soft diet Medications on discharge: Augmentin 875/125 mg 1 tablet by mouth twice a day 7 days Naproxen 250 mg by mouth every 12 hours when necessary for pain or discomfort 14 days Oxcarbazepine 900 mg by mouth twice a day Keppra 2000 g by mouth daily Keppra 2500 mg by mouth daily at bedtime Melatonin 10 mg by mouth daily at bedtime Olanzapine 20 mill grams by mouth daily at bedtime Lyrica 200 mill grams by mouth twice a day Percocet 5/325 mg one tablet by mouth every 6 hours when necessary for pain, maximum daily dose 4 Cc: [facility] Medications Scheduled Amoxicillin/Clavulanate Potas (Augmentin 875-125 mg) 1 Tab Tab 875 MG PO BID Levetiracetam (Keppra) 1,000 Mg Tab 2,000 MG PO DAILY Levetiracetam (Keppra) 1,000 Mg Tab 2,500 MG PO QHS Melatonin (Melatonin) 10 Mg Tab 10 MG PO QHS Olanzapine (Olanzapine) 20 Mg Tab 20 MG PO QHS Oxcarbazepine (Oxcarbazepine) 300 Mg Tab 900 MG PO BID Pregabalin (Lyrica) 300 Mg Cap 300 MG PO BID Scheduled PRN Naproxen (Naprosyn) 250 Mg Tab 250 MG PO Q12HP PRN PRN PAIN OR DISCOMFORT Oxycodone/Acetaminophen (Percocet 5-325 mg) 1 Tab Tab 1 TAB PO Q6H PRN PRN PAIN Allergies Coded Allergies: No Known Allergies (Unverified , 11/20/16) NICOLE COVINGTON DO Nov 23, 2016 11:19
[2016-11-23] MEDS ORDERED: PERC5TAB6 PO (11:33)
--- NOTE | 2016-11-23 16:10 | EDDOCDS ---
Physician Documentation [facility] Name: Glen Santizo Age: 36 yrs Sex: Male : 1980 Arrival Date: 11/20/2016 Time: 08:48 Bed Admit Hold Private MD: Disposition: 11/20/16 15:20 Hospitalization ordered by Brianda Greene for Inpatient Admission. Preliminary diagnosis is Epilepsy and recurrent seizures. - Bed requested for PCU. - Status is Inpatient Admission. me3 - Condition is Stable. - Problem is new. - Symptoms have improved. Historical: - Allergies: no known allergies; - PMHx: TBI; Seizure Disorder; - PSHx: Tracheostomy; Craniotomy; BRAIN STIMULATOR; - Social history: Smoking status: Patient uses tobacco products, heavy tobacco smoker. Patient uses alcohol on a daily basis. No barriers to communication noted, Speaks appropriately for age. - Family history: Not pertinent. - : The pt / caregiver states he / she is not on anticoagulants. Unable to Verify Home Med List with the patient / caregiver. - Exposure Risk Screening:: None identified. Vital Signs: 11/20 09:12 BP 124 / 67 (auto/); ml6 09:12 Pulse 130 MON; Resp 18; Temp 97.3(R); Pulse Ox 92% on R/A; Pain 0/10; ml6 09:27 BP 132 / 68 (auto/); ml6 09:27 Pulse 122 MON; Resp 18; Pulse Ox 92% on R/A; Pain 0/10; ml6 09:57 BP 127 / 80 (auto/); ml6 09:57 Pulse 112 MON; Resp 20; Pulse Ox 85% on R/A; ml6 10:27 BP 132 / 85 (auto/); ml6 10:27 Pulse 100 MON; Resp 16; Pulse Ox 93% on 100% Non-rebreather mask; Pain 0/10; ml6 10:57 BP 131 / 86 (auto/); ml6 10:57 Pulse 92 MON; Pulse Ox 98% on 100% Non-rebreather mask; ml6 11:27 BP 135 / 87 (auto/); ml6 11:28 Pulse 90 MON; Pulse Ox 86% on R/A; ml6 11:29 Pulse Ox 94% on 100% Non-rebreather mask; ml6 11:57 BP 138 / 79 (auto/); ml6 11:57 Pulse 84 MON; Pulse Ox 97% on 100% Non-rebreather mask; ml6 12:27 BP 143 / 80 (auto/); ml6 12:27 Pulse 88 MON; Pulse Ox 98% on 100% Non-rebreather mask; Pain 0/10; ml6 12:57 BP 170 / 86 (auto/); ml6 12:57 Pulse 104 MON; Pulse Ox 90% on 100% Non-rebreather mask; ml6 13:27 BP 147 / 78 (auto/); ml6 13:27 Pulse 88 MON; Pulse Ox 99% on 100% Non-rebreather mask; ml6 13:57 BP 124 / 68 (auto/); ml6 13:57 Pulse 102 MON; Resp 18; Pulse Ox 93% on 50% Venturi mask; ml6 15:14 BP 141 / 92 (auto/); ml6 15:14 Pulse 88 MON; Resp 18; Temp 98.4(O); Pulse Ox 92% on 50% Venturi mask; Pain 0/10; ml6 MDM: 08:[address] Freight/Pulse Ox/q 15 min VS ordered. fg 08:56 Accucheck ordered. fg 08:56 IV Saline Lock ordered. fg 08:56 Oxygen at 4L/Min NC or Home dosage ordered. fg 08:56 Rhythm Strip to chart ordered. fg 08:56 levETIRAcetam (20mg/kg) 1000 mg IVPB at 400 mL/hr once over 15 mins; dilute in 100mL NS fg or D5W ordered. 08:56 LORazepam 0.5 mg IVP once ordered. fg 08:57 Restraints, Adult: Mechanical - 4 points up to 1 hr (poses imminent danger of harming fg others). May use manual restraints to secure restraint devices. Pt. monitoring per RN policy. ordered. 08:57 Acetaminophen Level Ordered. EDMS 08:57 CBC with Diff Ordered. EDMS 08:57 Cardiac Injury Profile Ordered. EDMS 08:57 Drug Eval Toxicology ED Only Ordered. EDMS 08:57 Liver Profile Ordered. EDMS 08:57 MED Profile Ordered. EDMS 08:57 Salicylate Level Ordered. EDMS 08:57 Thyroid Stimulating Hormone Ordered. EDMS 08:57 Troponin Ordered. EDMS 08:57 Urinalysis Ordered. EDMS 08:57 Levetiracetam (short red top tube) Ordered. EDMS 08:57 Urine Culture Ordered. EDMS 08:58 Chest, 1 View Ordered. EDMS 08:58 ECG WITH READING ER PHYS+CARDIAG ordered. EDMS 09:04 OXCARBAZEPINE Ordered. EDMS 09:13 NS 0.9% 1000 ml IV at bolus once ordered. fg 09:14 CT Head Without Contrast Ordered. EDMS 09:25 Fingerstick Blood Sugar Ordered. EDMS 10:06 Ethyl Alcohol (ethanol) Ordered. EDMS 10:08 DIFFERENTIAL NO CHARGE Ordered. EDMS 10:08 PLATELET ESTIMATE Ordered. EDMS 10:14 Oxygen at 15 Liters/Minute NRB Mask ordered. ml6 10:15 -Arterial Blood Gas Ordered. EDMS 10:57 Financial registration complete. lg 10:59 [facility] Payment Agreement was scanned into [employer] and attached to record. lg 12:08 ketorolac 30 mg IVP once ordered. fg 13:02 BED REQUEST+ADM ordered. EDMS 13:29 CT Chest Angio R/O PE Ordered. EDMS 14:09 levETIRAcetam (20mg/kg) 1000 mg IVPB at 400 mL/hr once over 15 mins; dilute in 100mL NS fg or D5W ordered. 14:12 OXcarbazepine 900 mg PO once ordered. fg 14:46 Admission / Observation Status ordered. EDMS 14:46 NPO DIET ordered. EDMS 19:32 COMPLETE BLOOD COUNT Ordered. EDMS 19:32 BASIC METABOLIC PROFILE Ordered. EDMS 19:42 T-Sheet-- Draft Copy was scanned into [employer] and attached to record. klr 11/21 06:56 CREATINE PHOSPHOKINASE Ordered. EDMS 06:56 C REACTIVE PROTEIN QUANTITATIV Ordered. EDMS Administered Medications: 11/20 09:07 Drug: LORazepam 0.5 mg [lorazepam 2 mg/mL injection solution (0.25 mL)] Route: IVP; js13 Site: left hand; 09:08 Drug: levETIRAcetam (20mg/kg) 1000 mg [levetiracetam 500 mg/5 mL intravenous solution] js13 Route: IVPB; Rate: 400 mL/hr; Infused Over: 15 mins; Site: left hand; 09:22 Drug: NS 0.9% 1000 ml [sodium chloride 0.9 % intravenous solution] Route: IV; Rate: ml6 bolus; Site: left hand; 12:13 Drug: ketorolac 30 mg [ketorolac 30 mg/mL (1 mL) injection solution (1 mL)] Route: IVP; ml6 Site: left hand; 14:15 Drug: levETIRAcetam (20mg/kg) 1000 mg [levetiracetam 500 mg/5 mL intravenous solution] js13 Route: IVPB; Rate: 400 mL/hr; Infused Over: 15 mins; Site: right forearm; 15:19 Drug: OXcarbazepine 900 mg Route: PO; ml6 Signatures: Dispatcher [employer] EDMS Jeanine Amador, Teddy Reg lg Maura Canales,STREET LIGHT [employer]RE[employer] LIGHT SERVICER HELPER me3 Linda Haney mt4 Casimiro Ram, POONAM RN ml6 Jaja Mendoza MD MD Nisa Decker Jennifer RN js13 The chart was reviewed and I authenticate all verbal orders and agree with the evaluation and treatment provided.Corrections: (The following items were deleted from the chart) 10:08 10:06 URINE CULTURE+SYBIL ordered. EDMS EDMS 10:09 10:06 URINALYSIS+LAB ordered. EDMS EDMS 16:06 16:03 C REACTIVE PROTEIN QUANTITATIV ordered. EDMS EDMS 11/21 06:56 06:46 CREATINE PHOSPHOKINASE ordered. EDMS EDMS 06:57 06:46 C REACTIVE PROTEIN QUANTITATIV ordered. EDMS EDMS Attachments: 11/20 10:59 [facility] Payment Agreement lg 19:42 T-Sheet-- Draft Copy klr Chart Complete MTDD
--- NOTE | 2016-11-23 16:10 | EDDOCDS ---
Nurse's Notes [facility] Name: Shubham Burnett Age: 36 yrs Sex: Male : 1980 Arrival Date: 11/20/2016 Time: 08:48 Bed Admit Hold Private MD: Diagnosis: Epilepsy and recurrent seizures Presentation: 11/20 09:18 Presenting complaint: Patient states: EMS brought patient, patient Actively seizing, ml6 per sister patient was drinking. Adult Sepsis Screening: The patient does not have new or worsening altered mentation. Patient's respiratory rate is less than 22. Systolic blood pressure is greater than 100. Patient has a qSOFA score of 0- Negative Sepsis Screen. Suicide/Homicide risk assessment- the patient denies having any suicidal and/or homicidal ideations and does not present with any other emotional, behavioral or mental health complaints. Status: Patient is not a protective services case worker or dependent. Transition of care: patient was not received from another setting of care. 09:18 Acuity: SHERITA Level 2 ml6 09:18 Method Of Arrival: Ambulance 6 09:18 Care prior to arrival: See EMS report. FS 143. ml6 Triage Assessment: 09:18 General: Appears in no apparent distress, Behavior is uncooperative, postictal. Pain: ml6 Denies pain. HIV screening NA for this visit Offered previously. Neurological: No deficits noted. Level of Consciousness is awake, alert, Oriented to person, place, time. Cardiovascular: No deficits noted. Capillary refill < 3 seconds is brisk in bilateral fingers toes Heart tones S1 S2 present Edema is absent. Pulses are all present. Rhythm is regular. Respiratory: No deficits noted. Airway is patent Respiratory effort is even, unlabored, Respiratory pattern is regular, symmetrical, Breath sounds are clear bilaterally. GI: No deficits noted. Abdomen is flat, non- distended Bowel sounds present X 4 quads. Historical: - Allergies: no known allergies; - PMHx: TBI; Seizure Disorder; - PSHx: Tracheostomy; Craniotomy; BRAIN STIMULATOR; - Social history: Smoking status: Patient uses tobacco products, heavy tobacco smoker. Patient uses alcohol on a daily basis. No barriers to communication noted, Speaks appropriately for age. - Family history: Not pertinent. - : The pt / caregiver states he / she is not on anticoagulants. Unable to Verify Home Med List with the patient / caregiver. - Exposure Risk Screening:: None identified. Screenin:47 Screening information is obtained from the patient. Fall risk: At risk due to prior ml6 history of falls. Assistance ADL's: requires no assistance with activities of daily living. Abuse/DV Screen: The patient / caregiver reports he/she is: not in a situation that causes fear, pain or injury. Nutritional screening: No deficits noted. Advance Directives: Currently, there is no health care proxy. home support is adequate. Assessment: 09:18 General: see triage assessment. ml6 10:16 General: patient placed on NRB at 15l/min, SaO2 85% RA, Dr. Mendoza notified of change, . ml6 10:17 General: Appears in no apparent distress, Behavior is appropriate for age, cooperative. ml6 Pain: Denies pain. Neurological: No deficits noted. Level of Consciousness is awake, alert, Oriented to person, place, time, Hebrew Teacher are equal bilaterally Moves all extremities. Full function Gait is steady, Speech is normal, Facial symmetry appears normal, Pupils are PERRLA. Cardiovascular: No deficits noted. Respiratory: No deficits noted. 11:50 General: at this time pt's friend asked this rn if the pt could remove his mask. this mb9 rn advised friend that he shouldn't remove the mask. when this rn went into assess pt pt had mask off and his spo2 was 92-93% on room air. pt was told he needs to return the mask. pt complied. . 12:00 General: Appears in no apparent distress, comfortable, Behavior is appropriate for age, ml6 cooperative. Pain: Denies pain. Neurological: No deficits noted. Level of Consciousness is awake, alert, Oriented to person, place, time. Cardiovascular: No deficits noted. Respiratory: No deficits noted. Airway is patent. 13:00 General: called to room by patient's family, states that patient is having his usual ml6 seizure activity, patient is spitting in a cup and legs have become ridgid. Dr. Mendoza called to room, incident lasted 2 minutes. 14:00 General: Appears in no apparent distress, comfortable, Behavior is appropriate for age, ml6 cooperative. Pain: Denies pain. Neurological: No deficits noted. Level of Consciousness is awake, alert, Oriented to person, place, time, Hebrew Teacher are equal bilaterally Moves all extremities. Full function Gait is steady. Cardiovascular: No deficits noted. Respiratory: No deficits noted. Airway is patent Respiratory effort is even, unlabored, Respiratory pattern is regular, symmetrical, Breath sounds are clear bilaterally. 15:00 Reassessment: Patient appears in no apparent distress at this time. Patient denies pain ml6 at this time. Patient states feeling better. Patient states symptoms have improved. Vital Signs: 09:12 BP 124 / 67 (auto/); ml6 09:12 Pulse 130 MON; Resp 18; Temp 97.3(R); Pulse Ox 92% on R/A; Pain 0/10; ml6 09:27 BP 132 / 68 (auto/); ml6 09:27 Pulse 122 MON; Resp 18; Pulse Ox 92% on R/A; Pain 0/10; ml6 09:57 BP 127 / 80 (auto/); ml6 09:57 Pulse 112 MON; Resp 20; Pulse Ox 85% on R/A; ml6 10:27 BP 132 / 85 (auto/); ml6 10:27 Pulse 100 MON; Resp 16; Pulse Ox 93% on 100% Non-rebreather mask; Pain 0/10; ml6 10:57 BP 131 / 86 (auto/); ml6 10:57 Pulse 92 MON; Pulse Ox 98% on 100% Non-rebreather mask; ml6 11:27 BP 135 / 87 (auto/); ml6 11:28 Pulse 90 MON; Pulse Ox 86% on R/A; ml6 11:29 Pulse Ox 94% on 100% Non-rebreather mask; ml6 11:57 BP 138 / 79 (auto/); ml6 11:57 Pulse 84 MON; Pulse Ox 97% on 100% Non-rebreather mask; ml6 12:27 BP 143 / 80 (auto/); ml6 12:27 Pulse 88 MON; Pulse Ox 98% on 100% Non-rebreather mask; Pain 0/10; ml6 12:57 BP 170 / 86 (auto/); ml6 12:57 Pulse 104 MON; Pulse Ox 90% on 100% Non-rebreather mask; ml6 13:27 BP 147 / 78 (auto/); ml6 13:27 Pulse 88 MON; Pulse Ox 99% on 100% Non-rebreather mask; ml6 13:57 BP 124 / 68 (auto/); ml6 13:57 Pulse 102 MON; Resp 18; Pulse Ox 93% on 50% Venturi mask; ml6 15:14 BP 141 / 92 (auto/); ml6 15:14 Pulse 88 MON; Resp 18; Temp 98.4(O); Pulse Ox 92% on 50% Venturi mask; Pain 0/10; ml6 Vitals: 09:21 Log In Time N/A - ambulance arrival. ml6 ED Course: 08:49 Patient visited by Sheila Reilly PCA. ar3 08:49 Patient moved to Waiting ar3 08:49 Patient moved to 4 ar3 08:57 Jaja Mendoza MD is Attending Physician. fg 08:57 Patient visited by Jaja Mendoza MD. fg 09:09 EKG done. (by ED staff). Reviewed by Jaja Mendoza MD. jlf 09:16 Patient visited by Michelle Stevenson PCA. jlf 09:18 Inserted peripheral IV: 20gauge IV in left antecubital area and blood collected. ml6 Patient tolerated the procedure well. 09:18 Inserted peripheral IV: 18gauge IV in right forearm Patient tolerated the procedure ml6 well. No procedures done that require assistance. 09:19 Triage Initiated ml6 09:47 Patient visited by Casimiro Ram RN. ml6 09:47 Chest, 1 View Returned. EDMS 10:15 Patient visited by Michelle Stevenson PCA. jlf 10:16 DIFFERENTIAL NO CHARGE Sent. ml6 10:26 -Arterial Blood Gas Sent. lb 10:44 O2 via non-rebreather \T\ 15L/min. ml6 10:48 Patient visited by Casimiro Ram RN. ml6 10:55 CT Head Without Contrast Returned. EDMS 10:59 Patient name changed from Shubham\S\\S\Darlyn\S\ to Shubham\S\L\S\Darlyn. EDMS 10:59 [facility] [place] Payment Agreement was scanned into [employer] and attached to record. lg 11:25 Patient visited by Casimiro Ram RN. ml6 11:58 Patient visited by Casimiro Ram RN. ml6 13:08 Patient visited by Jaja Mendoza MD. fg 13:44 Patient visited by Casimiro Ram RN. ml6 14:15 Patient visited by Casimiro Ram RN. ml6 14:18 Brianda Greene family support specialist. ys2 14:31 CT Chest Angio R/O PE Returned. EDMS 15:19 Brianda Greene is Hospitalizing Provider. fg 17:49 Patient moved to Admit Hold js13 18:33 EKG-ADULT Returned. EDMS 19:42 T-Sheet-- Draft Copy was scanned into [employer] and attached to record. klr 11/21 14:54 The patient / caregiver is instructed regarding the plan of care and ED course. Patient me3 has correct armband on for positive identification. Placed in gown. Seizure precautions initiated. Administered Medications: 11/20 09:07 Drug: LORazepam 0.5 mg [lorazepam 2 mg/mL injection solution (0.25 mL)] Route: IVP; js13 Site: left hand; 09:08 Drug: levETIRAcetam (20mg/kg) 1000 mg [levetiracetam 500 mg/5 mL intravenous solution] js13 Route: IVPB; Rate: 400 mL/hr; Infused Over: 15 mins; Site: left hand; 09:22 Drug: NS 0.9% 1000 ml [sodium chloride 0.9 % intravenous solution] Route: IV; Rate: ml6 bolus; Site: left hand; 12:13 Drug: ketorolac 30 mg [ketorolac 30 mg/mL (1 mL) injection solution (1 mL)] Route: IVP; ml6 Site: left hand; 14:15 Drug: levETIRAcetam (20mg/kg) 1000 mg [levetiracetam 500 mg/5 mL intravenous solution] js13 Route: IVPB; Rate: 400 mL/hr; Infused Over: 15 mins; Site: right forearm; 15:19 Drug: OXcarbazepine 900 mg Route: PO; ml6 RT: 10:26 ABG's drawn from right radial artery allens test done and positive pressure held for 5 lb minutes no bleeding noted pressure bandage applied specimen sent pt. tolerated well. Order Results: Lab Order: Acetaminophen Level; SPEC'M 11/20/16 09:13 Test: ACETAMINOPHEN LEVEL; Value: < 2.0; Range: 10.0-30.0; Abnormal: Below low normal; Units: UG/ML; Status: F Lab Order: CBC with Diff; SPEC'M 11/20/16 09:13 Test: WHITE BLOOD COUNT; Value: 12.7; Range: 4.0-10.0; Abnormal: Above high normal; Units: K/mm3; Status: F Test: RED BLOOD COUNT; Value: 5.53; Range: 4.30-6.10; Units: M/mm3; Status: F Test: HEMOGLOBIN; Value: 17.7; Range: 14.0-18.0; Units: g/dl; Status: F Test: HEMATOCRIT; Value: 52.7; Range: 42.0-52.0; Abnormal: Above high normal; Units: %; Status: F Test: MEAN CORPUSCULAR VOLUME; Value: 95.2; Range: 80.0-96.0; Units: fl; Status: F Test: MEAN CORPUSCULAR HEMOGLOBIN; Value: 32.0; Range: 27.0-33.0; Units: pg; Status: F Test: MEAN CORPUSCULAR HGB CONC; Value: 33.6; Range: 32.0-36.5; Units: g/dl; Status: F Test: RED CELL DISTRIBUTION WIDTH; Value: 12.7; Range: 11.5-14.5; Units: %; Status: F Test: PLATELET COUNT, AUTOMATED; Value: 309; Range: 150-450; Units: k/mm3; Status: F Test: NEUTROPHILS; Value: 84; Range: 35-75; Abnormal: Above high normal; Units: %; Status: F Test: LYMPHOCYTES; Value: 12; Range: 16-52; Abnormal: Below low normal; Units: %; Status: F Test: MONOCYTES; Value: 3; Range: 0-8; Units: %; Status: F Test: ATYPICAL LYMPH; Value: 1; Range: 0-5; Units: %; Status: F Test: RBC MORPHOLOGY; Value: NORMAL; Status: F Lab Order: Cardiac Injury Profile; SPECM 11/20/16 09:13 Test: CPK CREATINE PHOSPHOKINASE; Value: 280; Range: 39-308; Units: U/L; Status: F Test: CK-MB VALUE MASS; Value: 1.3; Range: 0.0-3.6; Units: NG/ML; Status: F Test: MB/CK RELATIVE INDEX; Value: 0.46; Range: < OR =4; Status: F Test Note: ; DIAGNOSIS CRITERIA MMB ng/ml Relative Index (RI) NON-AMI < or = 5 N/A KELSEY ZONE > 5 < or = 4 AMI > 5 > 4 Lab Order: Drug Eval Toxicology ED Only; SPEC'M 11/20/16 09:13 Test: AMPHETAMINES LEVEL URINE; Value: NEGATIVE; Range: NEGATIVE; Status: F Test: BARBITURATES URINE; Value: NEGATIVE; Range: NEGATIVE; Status: F Test: BENZODIAZEPINES URINE; Value: NEGATIVE; Range: NEGATIVE; Status: F Test: CANNABINOIDS URINE; Value: NEGATIVE; Range: NEGATIVE; Status: F Test: COCAINE METABOLITE URINE; Value: NEGATIVE; Range: NEGATIVE; Status: F Test: METHADONE URINE; Value: NEGATIVE; Range: NEGATIVE; Status: F Test: OPIATES URINE; Value: NEGATIVE; Range: NEGATIVE; Status: F Test: TRICYCLIC ANTIDEPRESS URINE; Value: NEGATIVE; Range: NEGATIVE; Status: F Test Note: ; ALL PRESUMPTIVE POSITIVE FINDINGS ARE UNCONFIRMED NORMAL VALUES THRESHOLD IN NG/ML AMPHETAMINES 1000 METHAMPHETAMINES 1000 BARBITURATES 300 BENZODIAZEPINES 300 CANNABINOIDS (THC) 50 COCAINE METABOLITE 300 METHADONE 300 OPIATES 300 PHENCYCLIDINE 25 TRICYCLIC ANTIDEPRESSANTS 1000 RESULTS ARE FOR MEDICAL PURPOSES ONLY. ALL URINE SPECIMENS WILL BE SAVED FOR 3 DAYS. IF CONFIRMATION OF A PRESUMPTIVE POSTIVE SCREEN RESULT IS DESIRED, CALL CHEMISTRY ([phone]) AND REQUEST URINE TO BE SENT TO REFERENCE LAB. FOR A LIST OF CLOSELY RELATED COMPOUNDS PLEASE CALL THE LAB. Lab Order: Liver Profile; SPEC'M 11/20/16 09:13 Test: AST/SGOT; Value: 38; Range: 15-37; Abnormal: Above high normal; Units: U/L; Status: F Test: ALT/SGPT; Value: 56; Range: 12-78; Units: U/L; Status: F Test: ALKALINE PHOSPHATASE; Value: 125; Range: 45-117; Abnormal: Above high normal; Units: U/L; Status: F Test: BILIRUBIN,TOTAL; Value: 0.3; Range: 0.2-1.0; Units: MG/DL; Status: F Test: BILIRUBIN,DIRECT; Value: 0.1; Range: 0.0-0.2; Units: MG/DL; Status: F Test: TOTAL PROTEIN; Value: 8.6; Range: 6.4-8.2; Abnormal: Above high normal; Units: GM/DL; Status: F Test: ALBUMIN; Value: 4.6; Range: 3.2-5.2; Units: GM/DL; Status: F Test: ALBUMIN/GLOBULIN RATIO; Value: 1.15; Range: 1.00-1.93; Status: F Lab Order: MED Profile; SPEC11/20/16 09:13 Test: GLUCOSE, FASTING; Value: 129; Range: 70-105; Abnormal: Above high normal; Units: MG/DL; Status: F Test: BLOOD UREA NITROGEN; Value: 5; Range: 7-18; Abnormal: Below low normal; Units: MG/DL; Status: F Test: CREATININE FOR GFR; Value: 1.27; Range: 0.70-1.30; Units: MG/DL; Status: F Test: GLOMERULAR FILTRATION RATE; Value: > 60.0; Range: >60; Status: F Test: SODIUM LEVEL; Value: 135; Range: 136-145; Abnormal: Below low normal; Units: MEQ/L; Status: F Test: POTASSIUM SERUM; Value: 4.1; Range: 3.5-5.1; Units: MEQ/L; Status: F Test: CHLORIDE LEVEL; Value: 97; Range: 98-107; Abnormal: Below low normal; Units: MEQ/L; Status: F Test: CARBON DIOXIDE LEVEL; Value: 9; Range: 21-32; Abnormal: Below low normal; Units: MEQ/L; Status: F Test: ANION GAP; Value: 29; Range: 8-16; Abnormal: Above high normal; Units: MEQ/L; Status: F Test: CALCIUM LEVEL; Value: 9.2; Range: 8.5-10.1; Units: MG/DL; Status: F Test Note: ; Units are mL/min/1.73 m2 Chronic Kidney Disease Staging per NKF: Stage I & II GFR >=60 Normal to Mildly Decreased Stage III GFR 30-59 Moderately Decreased Stage IV GFR 15-29 Severely Decreased Stage V GFR <15 Very Little GFR Left ESRD GFR <15 on AIR AND MISSILE DEFENSE CREWMEMBER Lab Order: Salicylate Level; SPEC11/20/16 09:13 Test: SALICYLATE LEVEL; Value: 5.2; Range: 5.0-30.0; Units: MG/DL; Status: F Lab Order: Thyroid Stimulating Hormone; SPEC'M 11/20/16 09:13 Test: THYROID STIMULATING HORMONE; Value: 1.550; Range: 0.358-3.740; Units: uIU/ML; Status: F Lab Order: Troponin; SPEC'M 11/20/16 09:13 Test: TROPONIN I; Value: < 0.02; Range: < 0.10; Units: NG/ML; Status: F Test Note: ; Troponin I Reference Interval for [place] LOCI: 99th Percentile= 0.00-0.045 ng/ml Risk Stratification: <= 0.10 ng/ml Decreased Risk for Adverse Clinical Events. 0.10-1.50 ng/ml Increased Risk for Adverse Clinical Events. Evaluation of additional criterion and/or repeat testing in 2-6 hours is suggested to rule out myocardial damage. >= 1.50 ng/ml Indicative of Myocardial Injury. Lab Order: Urinalysis; SPEC'M 11/20/16 09:13 Test: APPEARANCE, URINE; Value: CLEAR; Range: CLEAR; Status: F Test: COLOR, URINE; Value: YELLOW; Range: YELLOW; Status: F Test: PH,URINE; Value: 5.0; Range: 5.0-9.0; Units: UNITS; Status: F Test: SPECIFIC GRAVITY URINE AUTO; Value: 1.012; Range: 1.002-1.035; Status: F Test: PROTEIN, URINE AUTO; Value: 1+; Range: NEGATIVE; Abnormal: Above high normal; Units: mg/dL; Status: F Test: GLUCOSE, URINE (UA) AUTO; Value: NEGATIVE; Range: NEGATIVE; Units: mg/dL; Status: F Test: KETONE, URINE AUTO; Value: TRACE; Range: NEGATIVE; Abnormal: Above high normal; Units: mg/dL; Status: F Test: UROBILINOGEN, URINE AUTO; Value: 0.2; Range: 0.0-2.0; Units: mg/dL; Status: F Test: BILIRUBIN, URINE AUTO; Value: NEGATIVE; Range: NEGATIVE; Status: F Test: NITRITE, URINE AUTO; Value: NEGATIVE; Range: NEGATIVE; Status: F Test: LEUKOCYTE ESTERASE, URINE AUTO; Value: NEGATIVE; Range: NEGATIVE; Status: F Test: BLOOD, URINE BLOOD; Value: 1+; Range: NEGATIVE; Abnormal: Above high normal; Status: F Test: SPERM, URINE AUTO; Range: NONE; Status: I Test: WBC, URINE AUTO; Value: 1; Range: 0-3; Units: /HPF; Status: F Test: RBC, URINE AUTO; Value: 3; Range: 0-3; Units: /HPF; Status: F Test: BACTERIA, URINE AUTO; Value: NEGATIVE; Range: NEGATIVE; Status: F Test: SQUAMOUS EPITHELIAL CELL UR AU; Value: 0; Range: 0-6; Units: /HPF; Status: F Test: MUCUS, URINE; Value: SMALL; Range: NEGATIVE; Status: F Test: HYALINE CAST, URINE AUTO; Value: 6; Range: 0-1; Units: /LPF; Status: F Lab Order: Urine Culture; [facility] 11/20/16 09:13 Test: URINE CULTURE; Value: <EXTERNAL COMMENT eCWMed> FULL REPORT IN LAB NOTES (eCW and Medent).; Status: F Test: URINE CULTURE; Value: URINE CULTURE RESULT NO GROWTH CLINICAL SIGNIFICANCE 1 ORGANISM; Status: F Lab Order: Fingerstick Blood Sugar; [facility] 11/20/16 08:56 Test: BEDSIDE GLUCOSE; Value: 146; Range: 70-105; Abnormal: Above high normal; Units: MG/DL; Status: F Lab Order: Ethyl Alcohol (ethanol); [facility] 11/20/16 09:10 Test: ETHYL ALCOHOL (ETHANOL); Value: < 0.003; Range: 0.000-0.010; Units: %; Status: F Lab Order: PLATELET ESTIMATE; [facility] 11/20/16 09:13 Test: PLATELET ESTIMATE; Value: NORMAL; Range: NORMAL; Status: F Test Note: ; NO PLAT CLUMPING NOTED ON SLIDE. Lab Order: -Arterial Blood Gas; 11/20/16 10:24 Test: ABG pH (ARTERIAL); Value: 7.357; Range: 7.350-7.450; Units: UNITS; Status: F Test: ABG PARTIAL PRESSURE CO2; Value: 35.8; Range: 35.0-45.0; Units: mmHg; Status: F Test: ABG PARTIAL PRESSURE O2; Value: 126.6; Range: 75.0-100.0; Abnormal: Above high normal; Units: mmHg; Status: F Test: ABG TOTAL CO2; Value: 20.7; Range: 22.0-29.0; Abnormal: Below low normal; Units: MEQ/L; Status: F Test: ABG HCO3; Value: 19.6; Range: 22.0-26.0; Abnormal: Below low normal; Units: MEQ/L; Status: F Test: ABG BASE EXCESS; Value: -5.0; Range: -2.0-2.0; Abnormal: Below low normal; Status: F Test: ABG STANDARD HCO3; Value: 20.5; Range: 22.0-26.0; Abnormal: Below low normal; Units: MEQ/L; Status: F Test: ABG O2 SATURATION; Value: 98.6; Range: 95.0-99.0; Units: %; Status: F Test: ABG DEVICE; Value: NASAL JASPREET; Status: F Lab Order: C REACTIVE PROTEIN QUANTITATIV; SPEC' 11/20/16 09:13 Test: C REACTIVE PROTEIN QUANTITATIV; Value: 0.54; Range: 0.00-0.30; Abnormal: Above high normal; Units: MG/DL; Status: F Lab Order: COMPLETE BLOOD COUNT; SPEC11/21/16 06:34 Test: WHITE BLOOD COUNT; Value: 8.6; Range: 4.0-10.0; Units: K/mm3; Status: F Test: RED BLOOD COUNT; Value: 4.77; Range: 4.30-6.10; Units: M/mm3; Status: F Test: HEMOGLOBIN; Value: 15.2; Range: 14.0-18.0; Abnormal: Delta; Units: g/dl; Status: F Test: HEMATOCRIT; Value: 42.6; Range: 42.0-52.0; Units: %; Status: F Test: MEAN CORPUSCULAR VOLUME; Value: 89.3; Range: 80.0-96.0; Abnormal: Delta; Units: fl; Status: F Test: MEAN CORPUSCULAR HEMOGLOBIN; Value: 32.0; Range: 27.0-33.0; Units: pg; Status: F Test: MEAN CORPUSCULAR HGB CONC; Value: 35.8; Range: 32.0-36.5; Units: g/dl; Status: F Test: RED CELL DISTRIBUTION WIDTH; Value: 13.0; Range: 11.5-14.5; Units: %; Status: F Test: PLATELET COUNT, AUTOMATED; Value: 194; Range: 150-450; Abnormal: Delta; Units: k/mm3; Status: F Lab Order: BASIC METABOLIC PROFILE; SPEC'11/21/16 06:34 Test: GLUCOSE, FASTING; Value: 89; Range: 70-105; Units: MG/DL; Status: F Test: BLOOD UREA NITROGEN; Value: 6; Range: 7-18; Abnormal: Below low normal; Units: MG/DL; Status: F Test: CREATININE FOR GFR; Value: 0.79; Range: 0.70-1.30; Units: MG/DL; Status: F Test: GLOMERULAR FILTRATION RATE; Value: > 60.0; Range: >60; Status: F Test: SODIUM LEVEL; Value: 141; Range: 136-145; Units: MEQ/L; Status: F Test: POTASSIUM SERUM; Value: 3.6; Range: 3.5-5.1; Units: MEQ/L; Status: F Test: CHLORIDE LEVEL; Value: 108; Range: 98-107; Abnormal: Above high normal; Units: MEQ/L; Status: F Test: CARBON DIOXIDE LEVEL; Value: 25; Range: 21-32; Units: MEQ/L; Status: F Test: ANION GAP; Value: 8; Range: 8-16; Units: MEQ/L; Status: F Test: CALCIUM LEVEL; Value: 8.7; Range: 8.5-10.1; Units: MG/DL; Status: F Test Note: ; Units are mL/min/1.73 m2 Chronic Kidney Disease Staging per NKF: Stage I & II GFR >=60 Normal to Mildly Decreased Stage III GFR 30-59 Moderately Decreased Stage IV GFR 15-29 Severely Decreased Stage V GFR <15 Very Little GFR Left ESRD GFR <15 on AIR AND MISSILE DEFENSE CREWMEMBER Lab Order: CREATINE PHOSPHOKINASE; SPEC' 11/21/16 06:34 Test: CPK CREATINE PHOSPHOKINASE; Value: 271; Range: 39-308; Units: U/L; Status: F Lab Order: C REACTIVE PROTEIN QUANTITATIV; SPEC11/21/16 06:34 Test: C REACTIVE PROTEIN QUANTITATIV; Value: 5.97; Range: 0.00-0.30; Abnormal: Above high normal; Units: MG/DL; Status: F Radiology Order: Chest, 1 View Test: Chest, 1 View REASON FOR EXAMINATION: Chest Pain; Clinical: Chest pain.; ; Comparison: 04/14/2014.; ; Findings:; Tracheostomy overlies the airway. Mediastinum and cardiac silhouette stable.; Lung josue demonstrate chronic changes. No acute consolidation, effusion, or; pneumothorax. 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: ; : 1980 Requested By: JAJA Parada; Order Number: [id number] Reading MD: Jose Gibson; Measurements; Intervals [place]; Rate: 136 P:; CA: 0 QRS: 71; QRSD: 105 T: 46; QT: 307; QTc: 463; Interpretive Statements; SINUS TACHYCARDIA; BORDERLINE RAD; INCOMPLETE RIGHT BUNDLE BRANCH BLOCK; ; Electronically Signed On 11-20-2016 18:07:08 EST by Jose Gibson; Radiology Order: CT Head Without Contrast Test: CT Head Without Contrast REASON FOR EXAMINATION: seizure; Clinical: Seizures .; ; Comparison: 04/14/2014 .; ; Findings:; Bilateral neurostimulator probes extend via parietal approach into the temporal; lobes unchanged from prior examination. Significant metallic streak artifact; along the right hemisphere due to stimulator control unit limit evaluation.; Visualized eklsey-white differentiation and intracranial parenchyma appear; normal/stable. No acute intracranial hemorrhage or mass/mass effect is; appreciated. No ventriculomegaly or hydrocephalous. No extra-axial collection; identified.; ; ; ; Impression:; No obvious acute intracranial pathology.; ; ; Signed by; Alexei Teixeira MD 11/20/2016 10:19 A; Radiology Order: CT Chest Angio R/O PE Test: CT Chest Angio R/O PE REASON FOR EXAMINATION: Chest Pain; Clinical: Chest pain.; ; Technique: Axial contrast enhanced images from the thoracic inlet to the upper; abdomen using 100 ml Isovue 370 intravenous contrast material with coronal and; sagittal re-formations.; ; Findings: Satisfactory enhancement of the pulmonary vasculature is achieved and; no filling defects are identified to suggest pulmonary embolus. Moderate left; lower lobe, smaller right lower lobe and minimal right upper lobe consolidations; consistent with multifocal pneumonia / atelectasis. No pleural effusion/reaction; or pneumothorax. Thoracic aorta is normal caliber without aneurysm or; dissection. Heart and pericardium are normal. No adenopathy.; ; Impression:; No evidence for pulmonary embolus.; Left lower lobe > right lower lobe >> right upper lobe consolidation/atelectasis; ; ; Signed by; Alexei Teixeira MD 11/20/2016 02:13 P; Outcome: 15:20 Decision to Hospitalize by Provider. fg 11/21 14:52 Discharge Assessment: patient administered narcotics - no. The following High Risk [facility] [place] [facility] Discharge criteria are identified: None. Admitted to PCU accompanied by nurse, via stretcher, on monitor, with chart, Other Susie Pandya RN ED transported to PCU. Condition: stable. 14:54 CT Study completed. Property :Personal belongings accompany Pt. ut3 15:09 Patient left the ED. ut3 Signatures: Dispatcher [employer] EDMS Jeanine Amador, Reg Reg lg Theodore,Sagrario lb Maura Canales,CONTINUING EDUCATION SPECIALIST CONTINUING EDUCATION SPECIALIST me3 Casimiro Ram, RN RN ml6 Sheila Reilly, MANAGER QA MANAGER QA [place] Bradshaw,RN RN js13 Michelle Stevenson, MANAGER QA MANAGER QA Anshu Aguero,RN RN mb9 Jaja Mendoza MD MD Brianda Greene Kathie klr Corrections: (The following items were deleted from the chart) 11/20 13:23 13:00 General: called to room by patient's family, states that patient is having his ml6 usual seizure activity, patient is spitting in a cup and legs have become ridgid. 6 11/21 15:09 14:52 The following High Risk Discharge criteria are identified: None. Admitted to PCU me3 accompanied by nurse, via stretcher, on monitor, with chart, Other López Guzman RN ED transported to [place] [address] Chart Complete MTDD
--- NOTE | 2016-11-23 16:10 | EDDOCDS ---
Physician Documentation [facility] Name: Glen Santizo Age: 36 yrs Sex: Male : 1980 Arrival Date: 11/20/2016 Time: 08:48 Bed Admit Hold Private MD: Disposition: 11/20/16 15:20 Hospitalization ordered by Brianda Greene for Inpatient Admission. Preliminary diagnosis is Epilepsy and recurrent seizures. - Bed requested for PCU. - Status is Inpatient Admission. me3 - Condition is Stable. - Problem is new. - Symptoms have improved. Historical: - Allergies: no known allergies; - PMHx: TBI; Seizure Disorder; - PSHx: Tracheostomy; Craniotomy; BRAIN STIMULATOR; - Social history: Smoking status: Patient uses tobacco products, heavy tobacco smoker. Patient uses alcohol on a daily basis. No barriers to communication noted, Speaks appropriately for age. - Family history: Not pertinent. - : The pt / caregiver states he / she is not on anticoagulants. Unable to Verify Home Med List with the patient / caregiver. - Exposure Risk Screening:: None identified. Vital Signs: 11/20 09:12 BP 124 / 67 (auto/); ml6 09:12 Pulse 130 MON; Resp 18; Temp 97.3(R); Pulse Ox 92% on R/A; Pain 0/10; ml6 09:27 BP 132 / 68 (auto/); ml6 09:27 Pulse 122 MON; Resp 18; Pulse Ox 92% on R/A; Pain 0/10; ml6 09:57 BP 127 / 80 (auto/); ml6 09:57 Pulse 112 MON; Resp 20; Pulse Ox 85% on R/A; ml6 10:27 BP 132 / 85 (auto/); ml6 10:27 Pulse 100 MON; Resp 16; Pulse Ox 93% on 100% Non-rebreather mask; Pain 0/10; ml6 10:57 BP 131 / 86 (auto/); ml6 10:57 Pulse 92 MON; Pulse Ox 98% on 100% Non-rebreather mask; ml6 11:27 BP 135 / 87 (auto/); ml6 11:28 Pulse 90 MON; Pulse Ox 86% on R/A; ml6 11:29 Pulse Ox 94% on 100% Non-rebreather mask; ml6 11:57 BP 138 / 79 (auto/); ml6 11:57 Pulse 84 MON; Pulse Ox 97% on 100% Non-rebreather mask; ml6 12:27 BP 143 / 80 (auto/); ml6 12:27 Pulse 88 MON; Pulse Ox 98% on 100% Non-rebreather mask; Pain 0/10; ml6 12:57 BP 170 / 86 (auto/); ml6 12:57 Pulse 104 MON; Pulse Ox 90% on 100% Non-rebreather mask; ml6 13:27 BP 147 / 78 (auto/); ml6 13:27 Pulse 88 MON; Pulse Ox 99% on 100% Non-rebreather mask; ml6 13:57 BP 124 / 68 (auto/); ml6 13:57 Pulse 102 MON; Resp 18; Pulse Ox 93% on 50% Venturi mask; ml6 15:14 BP 141 / 92 (auto/); ml6 15:14 Pulse 88 MON; Resp 18; Temp 98.4(O); Pulse Ox 92% on 50% Venturi mask; Pain 0/10; ml6 MDM: 08:56 Inspector And Hand Packager/Pulse Ox/q 15 min VS ordered. fg 08:56 Accucheck ordered. fg 08:56 IV Saline Lock ordered. fg 08:56 Oxygen at 4L/Min NC or Home dosage ordered. fg 08:56 Rhythm Strip to chart ordered. fg 08:56 levETIRAcetam (20mg/kg) 1000 mg IVPB at 400 mL/hr once over 15 mins; dilute in 100mL NS fg or D5W ordered. 08:56 LORazepam 0.5 mg IVP once ordered. fg 08:57 Restraints, Adult: Mechanical - 4 points up to 1 hr (poses imminent danger of harming fg others). May use manual restraints to secure restraint devices. Pt. monitoring per RN policy. ordered. 08:57 Acetaminophen Level Ordered. EDMS 08:57 CBC with Diff Ordered. EDMS 08:57 Cardiac Injury Profile Ordered. EDMS 08:57 Drug Eval Toxicology ED Only Ordered. EDMS 08:57 Liver Profile Ordered. EDMS 08:57 MED Profile Ordered. EDMS 08:57 Salicylate Level Ordered. EDMS 08:57 Thyroid Stimulating Hormone Ordered. EDMS 08:57 Troponin Ordered. EDMS 08:57 Urinalysis Ordered. EDMS 08:57 Levetiracetam (short red top tube) Ordered. EDMS 08:57 Urine Culture Ordered. EDMS 08:58 Chest, 1 View Ordered. EDMS 08:58 ECG WITH READING ER PHYS+CARDIAG ordered. EDMS 09:04 OXCARBAZEPINE Ordered. EDMS 09:13 NS 0.9% 1000 ml IV at bolus once ordered. fg 09:14 CT Head Without Contrast Ordered. EDMS 09:25 Fingerstick Blood Sugar Ordered. EDMS 10:06 Ethyl Alcohol (ethanol) Ordered. EDMS 10:08 DIFFERENTIAL NO CHARGE Ordered. EDMS 10:08 PLATELET ESTIMATE Ordered. EDMS 10:14 Oxygen at 15 Liters/Minute NRB Mask ordered. ml6 10:15 -Arterial Blood Gas Ordered. EDMS 10:57 Financial registration complete. lg 10:59 [facility] Payment Agreement was scanned into [employer] and attached to record. lg 12:08 ketorolac 30 mg IVP once ordered. fg 13:02 BED REQUEST+ADM ordered. EDMS 13:29 CT Chest Angio R/O PE Ordered. EDMS 14:09 levETIRAcetam (20mg/kg) 1000 mg IVPB at 400 mL/hr once over 15 mins; dilute in 100mL NS fg or D5W ordered. 14:12 OXcarbazepine 900 mg PO once ordered. fg 14:46 Admission / Observation Status ordered. EDMS 14:46 NPO DIET ordered. EDMS 19:32 COMPLETE BLOOD COUNT Ordered. EDMS 19:32 BASIC METABOLIC PROFILE Ordered. EDMS 19:42 T-Sheet-- Draft Copy was scanned into [employer] and attached to record. klr 11/21 06:56 CREATINE PHOSPHOKINASE Ordered. EDMS 06:56 C REACTIVE PROTEIN QUANTITATIV Ordered. EDMS Administered Medications: 11/20 09:07 Drug: LORazepam 0.5 mg [lorazepam 2 mg/mL injection solution (0.25 mL)] Route: IVP; js13 Site: left hand; 09:08 Drug: levETIRAcetam (20mg/kg) 1000 mg [levetiracetam 500 mg/5 mL intravenous solution] js13 Route: IVPB; Rate: 400 mL/hr; Infused Over: 15 mins; Site: left hand; 09:22 Drug: NS 0.9% 1000 ml [sodium chloride 0.9 % intravenous solution] Route: IV; Rate: ml6 bolus; Site: left hand; 12:13 Drug: ketorolac 30 mg [ketorolac 30 mg/mL (1 mL) injection solution (1 mL)] Route: IVP; ml6 Site: left hand; 14:15 Drug: levETIRAcetam (20mg/kg) 1000 mg [levetiracetam 500 mg/5 mL intravenous solution] js13 Route: IVPB; Rate: 400 mL/hr; Infused Over: 15 mins; Site: right forearm; 15:19 Drug: OXcarbazepine 900 mg Route: PO; ml6 Signatures: Dispatcher [employer] EDMS Jeanine Amador, Teddy Reg lg Maura Canales,[employer] me3 Linda Haney mt4 Casimiro Ram, POONAM RN ml6 Jaja Mendoza MD MD Nisa Decker Jennifer RN js13 The chart was reviewed and I authenticate all verbal orders and agree with the evaluation and treatment provided.Corrections: (The following items were deleted from the chart) 10:08 10:06 URINE CULTURE+SYBIL ordered. EDMS EDMS 10:09 10:06 URINALYSIS+LAB ordered. EDMS EDMS 16:06 16:03 C REACTIVE PROTEIN QUANTITATIV ordered. EDMS EDMS 11/21 06:56 06:46 CREATINE PHOSPHOKINASE ordered. EDMS EDMS 06:57 06:46 C REACTIVE PROTEIN QUANTITATIV ordered. EDMS EDMS Attachments: 11/20 10:59 [facility] Payment Agreement lg 19:42 T-Sheet-- Draft Copy klr Chart Complete MTDD
== END 2016-11-23 13:20 | disposition home or self-care (01) | DRG 100 ==
LOC: M ED 08:48 → M PCU 14:41 → M ED INP 14:42 → M PCU 11-21 15:14 → M MSPAV 11-22 13:50
PROVIDERS: ADMIT Internal Medicine; ATTEND Internal Medicine
DX: G40.919 Epilepsy, unspecified, intractable, without status epilepticus (principal); J69.0 Pneumonitis due to inhalation of food and vomit; Z79.899 Other long term (current) drug therapy; Z93.0 Tracheostomy status; F17.200 Nicotine dependence, unspecified, uncomplicated; F10.10 Alcohol abuse, uncomplicated; Z87.820 Personal history of traumatic brain injury

== ENCOUNTER 2020-03-09 19:52 | Inpatient (IN) | payer MEDICARE, MEDICAID ==
[~2020-03-09 19:52] MED LIST: AUGM875T28 PO; KEPP10002 PO; LYRI300C PO; MELA1TAB15 PO; NAPR250T82 PO; OLAN20TA14 PO; OXCA300T14 PO; OXCA600T8 PO; PERC5TAB12 PO
[2020-03-09] MEDS ORDERED: levETIRAcetam 250MG TABLET (KEPPRA) PO SCH (21:00)
[2020-03-09] MEDS ORDERED: OLANZapine 10 MG TAB PO SCH (21:00)
[2020-03-09 21:50] VITALS: BP 162/100
[2020-03-09] MEDS ORDERED: MAALOX 30 ML SUSP *UDC PO PRN (22:30)
[2020-03-09] MEDS ORDERED: ACETAMINOPHEN TAB 650MG DOSE (2X325MG) PO PRN (22:30)
[2020-03-09] MEDS ORDERED: MOM 30ML SUSPENSION UDC PO PRN (22:30)
[2020-03-09] MEDS ORDERED: NS 1,000 ML IV SCH (22:45)
[2020-03-09] MEDS ORDERED: LORazepam 2 MG/ML VIAL IV PRN (22:45)
[2020-03-09] MEDS ORDERED: OXCA600T8 PO (22:50)
--- NOTE | 2020-03-09 22:51 | HPEPDOC ---
General Date of Admission Mar 09, 2020 at 21:55 Date of Service: Mar 09, 2020 Chief Complaint The patient is a 39-year-old male admitted with a reason for visit of Grand Mal Seizures. Source: Patient, Old records, Other (records from [facility]) Exam Limitations: No limitations Timing/Duration: Other (a few hours ago) Associated Symptoms: Other (, seizures) History of Present Illness This is a 39 years old white male with past medical history of traumatic brain injury in 2000. History of recurrent seizures after to medical brain injury, history of alcohol abuse in the past, was transferred from [facility] where he presented with petit mal seizures as per EMS. According to patient, he was going to get his medication when he developed a petit mal seizure 911 was called and he was picked up by EMS brought to [facility]. He remained stable. There had a basic blood work done which was essentially normal, and was transferred to [facility] for neurology consultation. Dr. [facility] has spoken with Dr. Kincaid who accepted the patient and will see the patient tomorrow morning on consultation. Patient is clinically stable off was no new complaints. No chest pain, shortness of breath, nausea, vomiting, diarrhea, etc. Home Medications Scheduled Amoxicillin/Potassium Clav (Augmentin 875-125 Tablet) 1 Tab Tab, 875 MG PO BID Levetiracetam (Keppra) 1,000 Mg Tab, 2,000 MG PO DAILY, (Reported) Levetiracetam (Keppra) 1,000 Mg Tab, 2,500 MG PO QHS, (Reported) Melatonin/Lemon [place] Extr (Melatonin-Lemon [place] Tablet) 10 Mg Tab, 10 MG PO QHS, (Reported) Olanzapine (Olanzapine) 20 Mg Tab, 20 MG PO QHS, (Reported) Oxcarbazepine (Oxcarbazepine) 300 Mg Tab, 900 MG PO BID Pregabalin (Lyrica) 300 Mg Cap, 300 MG PO BID, (Reported) Scheduled PRN Naproxen (Naprosyn) 250 Mg Tab, 250 MG PO Q12HP PRN for PAIN OR DISCOMFORT Oxycodone HCl/Acetaminophen (Percocet 5-325 mg Tablet) 1 Tab Tab, 1 TAB PO Q6H PRN for PAIN Allergies Coded Allergies: No Known Allergies (Unverified , 11/20/16) Past Medical History Medical History Traumatic brain injury, history of recurrent seizures, alcohol abuse in the past Surgical History Tracheostomy and craniotomy in the past Family History Family history reviewed, no significant history Social History * Smoker: Denies Alcohol: Denies Drugs: denies A-FIB/CHADSVASC A-FIB History Current/History of A-Fib/PAF?: No Review of Systems Constitutional: Denies: Chills, Fever, Malaise, Night Sweats, Weakness, Fatigue, Weight Loss, Lethargy, Other Eyes: Denies: Pain, Vision change, Conjunctivae inflammation, Eyelid inflammation, Redness, Other ENT: Denies: Head Aches, Ear Pain, Dysphagia, Sinus Congestion, Post Nasal Drip, Sore Throat, Epistaxis, Other Symptoms Skin: Denies: Rash, Lesions, Jaundice, Bruising, Itching, Dry, Breakdown, Nail Changes, Other Pulmonary: Denies: Dyspnea, Cough, Pleuritic Chest Pain, Other Symptoms Cardiovascular: Denies: Chest Pain, Palpitations, Orthopnea, Paroxysmal Noc. Dyspnea, Edema, Lt Headedness, Other Symptoms Gastrointestinal: Denies: Nausea, Vomiting, Abdominal Pain, Diarrhea, Constipation, Melena, Hematochezia, Other Symptoms Genitourinary: Denies: Dysuria, Frequency, Incontinence, Hematuria, Retention, Other Symptoms Hematologic: Denies: Bruising, Bleeding Excessively, Petecchia, Purpura, Enlarged Lymph Nodes, Other Hematologic Endocrine: Denies: Polydipsia, Polyphagia, Polyuria, Heat Intolerance, Cold Intolerance, Other Endocrine Sx Musculoskeletal: Denies: Neck Pain, Back Pain, Shoulder Pain, Arm Pain, Hand Pain, Leg Pain, Foot Pain, Joint Pain, Muscle Pain, Spasms, Other Symptoms Neurological: Reports: Other Symptoms (, petite mall seizures) Psych: Denies: Mood Normal, Anxiety, Depression, Memory Issues, Thoughts of Self Harm, Anger, Thoughts of Harming Other, Other Psych Physical Examination General Exam: Positive: Alert, Cooperative Eye Exam: Positive: PERRLA, Conjunctiva & lids normal ENT Exam: Positive: Atraumatic, Mucous membr. moist/pink Neck Exam: Positive: Supple Chest Exam: Positive: Clear to auscultation Heart Exam: Positive: Rate Normal, Normal S1, Normal S2 Abdomen Exam: Positive: Normal bowel sounds, Soft Extremity Exam: Positive: Normal pulses Skin Exam: Positive: Nl turgor and temperature Neuro Exam: Positive: Strength at 5/5 X4 ext, Cranial Nerves 3-12 NL Psych Exam: Positive: Mental status NL, Oriented x 3 Vital Signs Vital Signs Date Time Temp Pulse Resp B/P (MAP) Pulse Ox O2 Delivery O2 Flow Rate FiO2 03/09/20 21:50 98.0 102 20 162/100 (120) 95 Room Air Problems (1) Seizure disorder Status: Acute Problem Text: 39 years old white male with past medical history of traumatic brain injury with seizures was brought in with the one episode of fatigue, mild seizures. Patient did receive Ativan at the hospital and he has remained asymptomatic since. He was brought to [facility]. Patient admitted for meds adjustment and neurology consult Admit patient to [facility] floor Dr. Kincaid was called and discussed and will continue all present home meds along with Ativan when necessary CBC, CMP, serum magnesium and serum Keppra level has been ordered IV fluid normal saline at 70 mL per hour Nothing by mouth except meds Activity as tolerated DVT prophylaxis with Lovenox Further recommendations as per neurology (2) History of airway aspiration Status: Chronic Problem Text: Nothing by mouth except meds Bedside swallow eval in a.m. and he can be restarted on his oral feeding Further recommendations as per speech pathology Plan / VTE VTE Prophylaxis Ordered?: Yes HENRY ARREDONDO MD Mar 09, 2020 22:51
[2020-03-09 22:56] LABS: HEMATOCRIT 43.6 % (42.0-52.0); HEMOGLOBIN 15.3 g/dl (13.5-17.5); MEAN CORPUSCULAR HEMOGLOBIN 32.8 pg (27.0-33.0); MEAN CORPUSCULAR HGB CONC 35.1 g/dl (32.0-36.5); MEAN CORPUSCULAR VOLUME 93.4 fl (80.0-96.0); PLATELET COUNT, AUTOMATED 231 10^3/uL (150-450); RED BLOOD COUNT 4.67 10^6/uL (4.30-6.10)
[2020-03-09 23:22] LABS: ALBUMIN 3.6 GM/DL (3.2-5.2); ALT/SGPT 90 U/L (12-78); BILIRUBIN,TOTAL 0.8 MG/DL (0.2-1.0); BLOOD UREA NITROGEN 8 MG/DL (7-18); CALCIUM LEVEL 8.6 MG/DL (8.5-10.1); CARBON DIOXIDE LEVEL 31 MEQ/L (21-32); CHLORIDE LEVEL 96 MEQ/L (98-107); CREATININE FOR GFR 0.78 MG/DL (0.70-1.30); GLOMERULAR FILTRATION RATE > 60.0 (>60); GLUCOSE, FASTING 85 MG/DL (70-100); POTASSIUM SERUM 3.3 MEQ/L (3.5-5.1); SODIUM LEVEL 131 MEQ/L (136-145); TOTAL PROTEIN 7.3 GM/DL (6.4-8.2)
[2020-03-10] VITALS: BP 157/100
[2020-03-10] MEDS: OXcarbazepine 300 MG TAB PO SCH ×2 (00:47→09:49)
[2020-03-10] MEDS: PREGABALIN 100 MG CAP (LYRICA) PO SCH ×2 (00:48→09:48)
[2020-03-10 04:00] VITALS: BP 136/96
[2020-03-10 05:14] LABS: HEMOGLOBIN 14.7 g/dl (13.5-17.5); MEAN CORPUSCULAR HEMOGLOBIN 32.6 pg (27.0-33.0); MEAN CORPUSCULAR VOLUME 93.1 fl (80.0-96.0); PLATELET COUNT, AUTOMATED 204 10^3/uL (150-450); RED BLOOD COUNT 4.51 10^6/uL (4.30-6.10); WHITE BLOOD COUNT 5.9 10^3/uL (4.0-10.0)
[2020-03-10 05:38] LABS: ALBUMIN 3.3 GM/DL (3.2-5.2); ALT/SGPT 100 U/L (12-78); BILIRUBIN,TOTAL 0.8 MG/DL (0.2-1.0); BLOOD UREA NITROGEN 6 MG/DL (7-18); CALCIUM LEVEL 8.6 MG/DL (8.5-10.1); CARBON DIOXIDE LEVEL 30 MEQ/L (21-32); CHLORIDE LEVEL 98 MEQ/L (98-107); CREATININE FOR GFR 0.71 MG/DL (0.70-1.30); GLOMERULAR FILTRATION RATE > 60.0 (>60); GLUCOSE, FASTING 79 MG/DL (70-100); MAGNESIUM LEVEL 2.3 MG/DL (1.8-2.4); POTASSIUM SERUM 3.3 MEQ/L (3.5-5.1); SODIUM LEVEL 134 MEQ/L (136-145); TOTAL PROTEIN 6.9 GM/DL (6.4-8.2)
[2020-03-10] MEDS ORDERED: POTASSIUM CHLORIDE 10 MEQ SR TABLET PO ONE (07:30)
[2020-03-10] MEDS ORDERED: SLF 3 ML SYR IV PRN (07:45)
[2020-03-10 08:04] VITALS: BP 146/98
[2020-03-10] MEDS ORDERED: ENOXAPARIN 40MG/0.4ML SYRINGE (J1650 PER 10MG) SC SCH (09:00)
[2020-03-10] MEDS ORDERED: levETIRAcetam 250MG TABLET (KEPPRA) PO SCH (09:00)
[2020-03-10 12:00] VITALS: BP 123/83
[2020-03-10] MEDS ORDERED: LYRI300C PO ×2 (12:52→16:46)
[2020-03-10] MEDS ORDERED: SLF 3 ML SYR IV SCH (14:00)
== END 2020-03-10 16:35 | disposition home or self-care (01) | DRG 101 ==
LOC: M PCU 21:55
PROVIDERS: ADMIT Internal Medicine; ATTEND Internal Medicine
DX: G40.909 Epilepsy, unspecified, not intractable, without status epilepticus (principal); Z87.820 Personal history of traumatic brain injury; Z79.899 Other long term (current) drug therapy

== ENCOUNTER 2020-08-12 13:49 | Inpatient (IN) | payer MEDICARE, MEDICAID ==
--- NOTE | 2020-08-12 14:37 | REP ---
INDICATION: ALTERED MENTAL STATUS. COMPARISON: PA chest 11/22/2016 TECHNIQUE: Two views FINDINGS: Tracheostomy tube again seen and unchanged. Some bilateral lateral pleural thickening which is mild. No effusion or acute infiltrate. No parenchymal mass or definite nodule. The heart, mediastinal and hilar contours are normal. The aorta and airway intact below the tracheostomy. No acute compression deformity in the spine. Visualized ribs, scapulae and clavicles intact. No free air. IMPRESSION: 1. Status post tracheostomy with appearance unchanged since 2017. There is no acute cardiopulmonary change on this study. <Electronically signed by Vahe Rocha > 08/12/20 [id number]
[2020-08-12 14:52] LABS: BASO # 0.1 10^3/uL (0.0-0.2); EOS # 0.2 10^3/uL (0.0-0.5); EOS % 2.6 % (0.0-3.0); HEMATOCRIT 40.6 % (42.0-52.0); HEMOGLOBIN 14.5 g/dl (13.5-17.5); LYMPH # 1.8 10^3/uL (1.5-5.0); LYMPH % 21.3 % (24.0-44.0); MEAN CORPUSCULAR HEMOGLOBIN 30.3 pg (27.0-33.0); MEAN CORPUSCULAR HGB CONC 35.7 g/dl (32.0-36.5); MEAN CORPUSCULAR VOLUME 84.9 fl (80.0-96.0); MONO # 0.5 10^3/uL (0.0-0.8); MONO % 5.7 % (0.0-5.0); NEUTROPHILS # 5.7 10^3/uL (1.5-8.5); NEUTROPHILS % 68.9 % (36.0-66.0); PLATELET COUNT, AUTOMATED 212 10^3/uL (150-450); RED BLOOD COUNT 4.78 10^6/uL (4.30-6.10); WHITE BLOOD COUNT 8.2 10^3/uL (4.0-10.0)
--- NOTE | 2020-08-12 15:11 | REP ---
INDICATION: Altered Mental Status. COMPARISON: Comparison CT study of the brain is from November 20, 2016.. TECHNIQUE: Helical scanning is acquired 5 mm axial images are generated. Coronal MPR images are generated. 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 The electronic power plant is seen along the right parietal convexity. The bony calvarium is otherwise intact. Visualized paranasal sinuses are clear. No intraorbital abnormality is seen. Temporal lobe lead position is unchanged bilaterally. There is no evidence of intracranial hemorrhage. No acute infarction, extra-axial fluid collection, mass or midline shift. IMPRESSION: No acute intracranial abnormality. Bilateral temporal neurostimulator leads remain in place intracranially. There is no evidence of hemorrhage, extra-axial fluid collection, new infarct, or mass.. <Electronically signed by Parker Smart > 08/12/20 [id number]
[2020-08-12 15:30] LABS: ACETAMINOPHEN LEVEL < 2.0 UG/ML (10.0-30.0); ALBUMIN 3.6 GM/DL (3.2-5.2); ALT/SGPT 80 U/L (12-78); BILIRUBIN,DIRECT 0.1 MG/DL (0.0-0.2); BILIRUBIN,TOTAL 0.4 MG/DL (0.2-1.0); BLOOD UREA NITROGEN 6 MG/DL (7-18); CALCIUM LEVEL 8.5 MG/DL (8.5-10.1); CARBON DIOXIDE LEVEL 22 MEQ/L (21-32); CHLORIDE LEVEL 90 MEQ/L (98-107); CK-MB VALUE MASS 1.5 NG/ML (<3.6); CPK CREATINE PHOSPHOKINASE 168 U/L (39-308); ETHYL ALCOHOL (ETHANOL) 0.303 % (0.000-0.010); GLOMERULAR FILTRATION RATE > 60.0 (>60); GLUCOSE, FASTING 92 MG/DL (70-100); MB/CK RELATIVE INDEX 0.89 (< OR =4); POTASSIUM SERUM 3.9 MEQ/L (3.5-5.1); SALICYLATE LEVEL 1.9 MG/DL (5.0-30.0); SODIUM LEVEL 124 MEQ/L (136-145); THYROID STIMULATING HORMONE 0.871 uIU/ML (0.358-3.740); TOTAL PROTEIN 7.3 GM/DL (6.4-8.2); TROPONIN I < 0.02 NG/ML (< 0.10)
[2020-08-12] MEDS ORDERED: NICOTINE 21MG/24HR 1 EA TRANSDERMAL TD ONE ×2 (15:30→18:15)
[2020-08-12 16:53] LABS: AMPHETAMINES LEVEL URINE NEGATIVE (NEGATIVE); BARBITURATES URINE NEGATIVE (NEGATIVE); BENZODIAZEPINES URINE NEGATIVE (NEGATIVE); CANNABINOIDS URINE NEGATIVE (NEGATIVE); COCAINE METABOLITE URINE NEGATIVE (NEGATIVE); METHADONE URINE NEGATIVE (NEGATIVE); OPIATES URINE NEGATIVE (NEGATIVE); PHENCYCLIDINE URINE NEGATIVE (NEGATIVE)
[2020-08-12 16:55] LABS: OSMOLALITY SERUM 325 MOSM/KG (275-295)
[2020-08-12] MEDS ORDERED: LORazepam 2 MG TAB PO PRN (17:30)
[2020-08-12] MEDS ORDERED: LORazepam 2 MG/ML VIAL IV PRN (17:30)
[2020-08-12] MEDS ORDERED: NS 500 ML IV ONE (17:30)
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
[2020-08-12 17:53] LABS: SODIUM,RANDOM URINE 29 MEQ/L
[2020-08-12 17:57] LABS: OSMOLALITY URINE 485 MOSM/KG (500-800)
[2020-08-12 20:05] VITALS: BP 143/96
[2020-08-12] MEDS: THIAMINE 100 MG TAB PO SCH (20:31)
[2020-08-12 20:48] LABS: BLOOD UREA NITROGEN 4 MG/DL (7-18); CALCIUM LEVEL 8.6 MG/DL (8.5-10.1); CARBON DIOXIDE LEVEL 23 MEQ/L (21-32); CHLORIDE LEVEL 95 MEQ/L (98-107); CREATININE FOR GFR 0.75 MG/DL (0.70-1.30); GLOMERULAR FILTRATION RATE > 60.0 (>60); GLUCOSE, FASTING 92 MG/DL (70-100); POTASSIUM SERUM 3.2 MEQ/L (3.5-5.1); SODIUM LEVEL 129 MEQ/L (136-145)
[2020-08-12] MEDS ORDERED: levETIRAcetam 250MG TABLET (KEPPRA) PO SCH (21:00)
[2020-08-12] MEDS ORDERED: OLANZapine 10 MG TAB PO SCH (21:00)
[2020-08-12] MEDS: OXcarbazepine 300 MG TAB PO SCH (21:19)
[2020-08-12] MEDS: POTASSIUM CHLORIDE 10% LIQ 20 MEQ/15 ML UDC PO SCH (22:41)
[2020-08-13] VITALS: BP 144/81
[2020-08-13] MEDS: POTASSIUM CHLORIDE 10% LIQ 20 MEQ/15 ML UDC PO SCH (00:35)
[2020-08-13 04:00] VITALS: BP 143/98
[2020-08-13 05:40] LABS: BASO # 0.1 10^3/uL (0.0-0.2); BASO % 1.1 % (0.0-1.0); EOS # 0.3 10^3/uL (0.0-0.5); EOS % 5.7 % (0.0-3.0); HEMATOCRIT 45.1 % (42.0-52.0); HEMOGLOBIN 15.4 g/dl (13.5-17.5); LYMPH # 1.2 10^3/uL (1.5-5.0); LYMPH % 25.3 % (24.0-44.0); MEAN CORPUSCULAR HEMOGLOBIN 30.4 pg (27.0-33.0); MEAN CORPUSCULAR HGB CONC 34.1 g/dl (32.0-36.5); MEAN CORPUSCULAR VOLUME 89.1 fl (80.0-96.0); MONO # 0.3 10^3/uL (0.0-0.8); MONO % 5.9 % (0.0-5.0); NEUTROPHILS # 2.8 10^3/uL (1.5-8.5); NEUTROPHILS % 61.8 % (36.0-66.0); PLATELET COUNT, AUTOMATED 194 10^3/uL (150-450); RED BLOOD COUNT 5.06 10^6/uL (4.30-6.10); WHITE BLOOD COUNT 4.6 10^3/uL (4.0-10.0)
[2020-08-13 06:14] LABS: BLOOD UREA NITROGEN 4 MG/DL (7-18); CALCIUM LEVEL 8.5 MG/DL (8.5-10.1); CARBON DIOXIDE LEVEL 22 MEQ/L (21-32); CHLORIDE LEVEL 100 MEQ/L (98-107); CREATININE FOR GFR 0.67 MG/DL (0.70-1.30); GLOMERULAR FILTRATION RATE > 60.0 (>60); GLUCOSE, FASTING 84 MG/DL (70-100); POTASSIUM SERUM 4.4 MEQ/L (3.5-5.1); SODIUM LEVEL 131 MEQ/L (136-145)
[2020-08-13 08:00] VITALS: BP 138/91
[2020-08-13] MEDS: THIAMINE 100 MG TAB PO SCH (08:23)
[2020-08-13] MEDS: OXcarbazepine 300 MG TAB PO SCH (08:24)
[2020-08-13] MEDS ORDERED: levETIRAcetam 250MG TABLET (KEPPRA) PO SCH (09:00)
[2020-08-13] MEDS ORDERED: MULTIVITAMINS/MINERALS THERAP 1 TAB PO SCH (09:00)
[2020-08-13] MEDS ORDERED: FOLIC ACID 1 MG TAB PO SCH (09:00)
[2020-08-13] MEDS ORDERED: ENOXAPARIN 40MG/0.4ML SYRINGE (J1650 PER 10MG) SC SCH (09:00)
[2020-08-13 12:00] VITALS: BP 162/110
[2020-08-13 14:00] VITALS: BP 162/110
[2020-08-13 14:43] LABS: BLOOD UREA NITROGEN 5 MG/DL (7-18); CARBON DIOXIDE LEVEL 27 MEQ/L (21-32); CHLORIDE LEVEL 97 MEQ/L (98-107); CREATININE FOR GFR 0.81 MG/DL (0.70-1.30); GLOMERULAR FILTRATION RATE > 60.0 (>60); GLUCOSE, FASTING 108 MG/DL (70-100); POTASSIUM SERUM 3.7 MEQ/L (3.5-5.1); SODIUM LEVEL 133 MEQ/L (136-145)
[2020-08-13 16:00] VITALS: BP 158/112
--- NOTE | 2020-08-13 18:54 | ECGEPIP ---
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
--- NOTE | 2020-08-15 21:36 | DS.PDOC ---
Discharge Summary General Date of Admission Aug 12, 2020 at 16:25 Date of Discharge 07/13/20 Discharge Summary PROCEDURES PERFORMED DURING STAY: [None]. DISCHARGE DIAGNOSES: Acute Metabolic encephalopathy Alcohol intoxication Hyponatremia Seizure h/o TBI and intractable focal motor seizures Hypertension COMPLICATIONS/CHIEF COMPLAINT: Acute Metabolic Encephalopathy. HOSPITAL COURSE: 39 year old male with h/o TBI and intractable focal motor seizures and sometimes grand mal seizures, alcohol use disorder was found down on the floor by a neighbor unresponsive. EMS was called and he was brought to the ED. In the ED he was found to be confused, trying to get out of bed, trying to go for a smoke, getting agitated and combative. Labs were significant for a alcohol level of 0.301 and a sodium of 124. No history could be obtained from the patient as he is confused. All history was taken for chart review and for ED provider and EMS notes. Patient was admitted for acute metabolic encephalopathy. Later when patient became alert or oriented he reported that he was having some beers and then could not remember what happened . He believes he had a seizure. Patient was noted to have some high blood pressure measurements in the hospital. Patient not known to be hypertensive. Acute metabolic encephalopathy a combination of alcohol intoxication, hyponatremia and post ictal state. resolved Alcohol intoxication No withdrawal. Hyponatremia probably due to beer resolved Seizures poorly controlled, has neurostimulator in place usually has focal break through seizures every other day his grand mal seizures are about few times a year continue home meds. Hypertension patient not known to have hypertension Follow up with PMD DISCHARGE MEDICATIONS: Please see below. ALLERGIES: Please see below. PHYSICAL EXAMINATION ON DISCHARGE: VITAL SIGNS: Please see below. General Exam: Positive: Alert, Cooperative, No Acute Distress Eye Exam: Positive: PERRLA, Conjunctiva & lids normal, EOMI; Negative: Sclera icteric ENT Exam: Positive: Atraumatic, Mucous membr. moist/pink, Pharynx Normal Neck Exam: Positive: Supple; Negative: JVD, thyromegaly Chest Exam: Positive: Clear to auscultation, Normal air movement Heart Exam: Positive: Rate Normal, Regular Rhythm, Normal S1, Normal S2; Negative: Murmurs, Rubs Abdomen Exam: Positive: Normal bowel sounds, Soft; Negative: Tenderness, Hepatospenomegaly Extremity Exam: Positive: Normal pulses; Negative: Clubbing, Cyanosis, Edema Skin Exam: Positive: Nl turgor and temperature; Negative: Breakdown, Lesion Neuro Exam: Positive: Normal Speech, Strength at 5/5 X4 ext, Normal Tone LABORATORY DATA: Please see below. ACTIVITY: [As tolerated]. DIET: As tolerated DISPOSITION: 01 Home, Self-Care. DISCHARGE INSTRUCTIONS: PMD in 1 week DISCHARGE CONDITION: [Stable]. TIME SPENT ON DISCHARGE: 35 minutes. Vital Signs/I&Os Vital Signs Date Time Temp Pulse Resp B/P (MAP) Pulse Ox O2 Delivery O2 Flow Rate FiO2 08/13/20 16:00 98.2 91 16 158/112 (127) 94 Room Air Discharge Medications Scheduled Levetiracetam (Keppra) 1,000 Mg Tab, 2,000 MG PO DAILY, (Reported) Levetiracetam (Keppra) 1,000 Mg Tab, 2,500 MG PO QHS, (Reported) Olanzapine (Olanzapine) 20 Mg Tab, 20 MG PO QHS, (Reported) Oxcarbazepine (Oxcarbazepine) 600 Mg Tablet, 600 MG PO BID, (Reported) Allergies Coded Allergies: No Known Allergies (Unverified , 11/20/16) REMIGIO GAITAN MD Aug 15, 2020 21:36
== END 2020-08-13 17:44 | disposition home or self-care (01) | DRG 71 ==
LOC: M ED 13:49 → EDBD 13:49 → M ED INP 16:25 → ENRESERV 16:42 → M PCU 20:03
PROVIDERS: ADMIT Internal Medicine Nephrology; ATTEND Internal Medicine Nephrology
DX: G93.41 Metabolic encephalopathy (principal); E87.1 Hypo-osmolality and hyponatremia; R56.9 Unspecified convulsions; F10.129 Alcohol abuse with intoxication, unspecified; I10 Essential (primary) hypertension; Z79.899 Other long term (current) drug therapy; Z87.820 Personal history of traumatic brain injury

== ENCOUNTER 2020-08-17 18:52 | Emergency (ER) | payer MEDICARE, MEDICAID ==
[~2020-08-17] VITALS: Ht 180.3 cm; Wt 118.1 kg
[2020-08-17] MEDS ORDERED: NICOTINE 21MG/24HR 1 EA TRANSDERMAL TD ONE (19:45)
[2020-08-17] MEDS ORDERED: OXcarbazepine 300 MG TAB PO ONE (20:45)
[2020-08-17] MEDS ORDERED: levETIRAcetam 250MG TABLET (KEPPRA) PO ONE (20:45)
--- NOTE | 2020-08-17 20:51 | REPVR ---
PROCEDURE INFORMATION: Exam: XR Left Ankle Exam date and time: 08/17/2020 7:57 PM Age: 39 years old Clinical indication: Pain; Ankle; Left; Prior surgery; Surgery date: 6+ months; Additional info: Deformity TECHNIQUE: Imaging protocol: XR Left ankle. Views: 3 or more views. COMPARISON: CR - Tibia, Fibula lower leg LEFT 08/17/2020 7:29:40 PM FINDINGS: Bones/joints: There is an acute, comminuted, displaced fracture of the left medial malleolus. There is also an acute displaced fracture of the left lateral malleolus. There is severe posterior and lateral subluxation at the left tibiotalar joint. There is a long intramedullary nail and interlocking screws in the left tibia, which was not fully imaged. Incidental note is made of a small well corticated ossicle adjacent to the lateral aspect of the calcaneus. Soft tissues: There is soft tissue swelling around the left ankle. There is a posterior calcaneal spur at the insertion of the Achilles tendon, which is compatible with an Achilles enthesopathy. IMPRESSION: 1. Acute, comminuted, displaced fracture of the left medial malleolus. 2. Acute displaced fracture of the left lateral malleolus. 3. Severe posterior and lateral subluxation at the left tibiotalar joint. Electronically signed by: Joon Thornton On 08/17/2020 20:50:59 PM
--- NOTE | 2020-08-17 20:51 | REPVR ---
PROCEDURE INFORMATION: Exam: XR Left Tibia and Fibula Exam date and time: 08/17/2020 7:57 PM Age: 39 years old Clinical indication: Injury or trauma; Fall; Crushing; Ankle; Left TECHNIQUE: Imaging protocol: XR Left tibia and fibula. Views: 2 views. COMPARISON: CR - Ankle, complete LEFT 08/17/2020 7:29:40 PM FINDINGS: Bones/joints: There is an acute, comminuted, displaced fracture of the left medial malleolus. There is also an acute displaced fracture of the left lateral malleolus. There is lateral subluxation at the left tibiotalar joint. There is a chronic healed fracture deformity involving the left mid tibial diaphysis that is fixated by a long intramedullary nail and interlocking screws and the hardware is intact and appropriately positioned without evidence for loosening or a periprosthetic fracture. There is a chronic healed fracture deformity involving the left mid fibular diaphysis. Soft tissues: There is soft tissue swelling around the left ankle. There is a posterior calcaneal spur at the insertion of the Achilles tendon, which is compatible with an Achilles enthesopathy. IMPRESSION: 1. Acute, comminuted, displaced fracture of the left medial malleolus. 2. Acute displaced fracture of the left lateral malleolus. 3. Lateral subluxation at the left tibiotalar joint. Electronically signed by: Joon Thornton On 08/17/2020 20:51:24 PM
[2020-08-17] MEDS ORDERED: MORPHINE 4 MG/ML 1ML VIAL/SYRINGE (J2270) IV PRN (21:15)
[2020-08-17] MEDS ORDERED: ONDANSETRON 4MG/2ML VIAL IV ONE (21:15)
[2020-08-17] MEDS ORDERED: LIDOCAINE 1% MDV 20ML VIAL SC ONE (21:15)
[2020-08-17] MEDS ORDERED: MORPHINE 4 MG/ML 1ML VIAL/SYRINGE (J2270) SC ONE (21:15)
[2020-08-18 00:50] VITALS: BP 96/51
--- NOTE | 2020-08-18 09:12 | REP ---
INDICATION: reduction COMPARISON: Radiographs the same day. TECHNIQUE: Four views left ankle performed. FINDINGS: There is reduction of the previously noted tibial talar dislocation, and there is relatively good alignment of the osseous structures at the fracture sites of the distal tibia and fibula. Intramedullary andre is again noted with metallic screws in the shaft of the tibia. There is an overlying splint which obscures underlying osseous detail. IMPRESSION: Successful reduction at the tibiotalar joint. Good alignment of fractures of distal tibia and fibula. <Electronically signed by Everardo Waterman > 08/18/20 [id number]
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
--- NOTE | 2020-08-19 14:32 | REP ---
INDICATION: reduction COMPARISON: Radiographs the same day. TECHNIQUE: Multiple C-arm views left ankle performed. 24 seconds of fluoroscopy time was provided for the reduction. FINDINGS: The osseous structures of the ankle are well aligned with reduction of the previously noted tibiotalar dislocation. IMPRESSION: As above. <Electronically signed by Elmer Ramey > 08/18/20 2623
== END 2020-08-18 02:30 | disposition home or self-care (01) ==
LOC: M ED 21:34
DX: S82.852A Displaced trimalleolar fracture of left lower leg, initial encounter for closed fracture (principal); F10.129 Alcohol abuse with intoxication, unspecified; W19.XXXA Unspecified fall, initial encounter; Y92.099 Unspecified place in other non-institutional residence as the place of occurrence of the external cause; Y93.9 Activity, unspecified; Y99.9 Unspecified external cause status; F17.200 Nicotine dependence, unspecified, uncomplicated; Z79.899 Other long term (current) drug therapy
CPT/HCPCS: 27818; 73590; 73610; 80047; 99285; G0480; J2270; U0002

== ENCOUNTER 2020-11-05 20:49 | Emergency (ER) | payer MEDICARE, MEDICAID ==
[2020-11-05] MEDS: NS 1,000 ML IV SCH (00:50)
--- OUTSIDE RECORDS SUMMARY | 2020-11-05 20:55 | CCD | Continuity of Care Document ---
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 Name Role Phone Jose Gibson MD [facility] Unavailable Problems Description No Information Available Social History Type Date Description Comments Sex Unknown Allergies, Adverse Reactions, Alerts Description No Information Available Medications Description No Information Available Immunizations Description No Information Available Vital Signs Description No Information Available Results Description No Information Available Procedures Date Code Description Status 08/17/2020 90912 Dislocation Ankle W/O Anesthesia Completed 08/17/2020 75222 FX Bimalleolar Ankle W/Manipulat ion Completed Medical Devices Description No Information Available Encounters Type Date Location Provider Dx Diagnosis Office Visit 08/17/2020 11:44a [facility] Joel Wiley MD S82. [id number] Displaced bimalleolar fracture of left lower leg, init S93.05xA Dislocation of left ankle brenda int, initial encounter Assessments Date Code Description Provider 08/17/2020 S82.842A Displaced bimalleola r fracture of left lower leg, initial encounter for closed fracture Joel Wiley MD 08/17/2020 S93.05xA Dislocation of left ankle joint, initial encounter Joel Wiley MD Plan of Treatment No Information Available Functional Status Description No Information Available Mental Status Description No Information Available Referrals Description No Information Available
--- OUTSIDE RECORDS SUMMARY | 2020-11-05 20:56 | CCD ---
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 Name Role Phone Padilla Canas SALES EXECUTIVE Unavailable Padilla Canas SALES EXECUTIVE Unavailable Padilla Canas SALES EXECUTIVE Unavailable Padilla Canas SALES EXECUTIVE Unavailable Padilla Canas SALES EXECUTIVE Unavailable Padilla Canas SALES EXECUTIVE Unavailable Padilla Canas SALES EXECUTIVE Unavailable Padilla Canas SALES EXECUTIVE Unavailable Roxy Shannon MD Unavailable [phone] MaleRoxy kaur MD Unavailable [phone] MaleRoxy kaur MD Unavailable [phone] MaleRoxy kaur MD Unavailable [phone] MaleRoxy kaur MD Unavailable [phone] MaleRoxy kaur MD Unavailable [phone] Malek, Roxy Sherlyn EARLY Unavailable [phone] Malek, Roxy Sherlyn EARLY Unavailable [phone] Malek, Roxy Sherlyn EARLY Unavailable [phone] Malek, Roxy Sherlyn EARLY Unavailable [phone] Malek, Roxy Sherlyn EARLY Unavailable [phone] Malek, Roxy Sherlyn EARLY Unavailable [phone] Malek, Roxy Sherlyn EARLY Unavailable [phone] Cougler, S Wily HEAD OF SALES Unavailable Unavailable Cougler, S Wily HEAD OF SALES Unavailable Unavailable Cougler, S Wily HEAD OF SALES Unavailable Unavailable Cougler, S Wily HEAD OF SALES Unavailable Unavailable Cougler, S Wily HEAD OF SALES Unavailable Unavailable Cougler, S Wiyl HEAD OF SALES Unavailable Unavailable Cougler, S Wily HEAD OF SALES Unavailable Unavailable Cougler, S Wily HEAD OF SALES Unavailable Unavailable Cougler, S Wily HEAD OF SALES Unavailable Unavailable Cougler, S Wily HEAD OF SALES Unavailable Unavailable Cougler, S Wily HEAD OF SALES Unavailable Unavailable Cougler, S Wily HEAD OF SALES Unavailable Unavailable Cougler, S Wily HEAD OF SALES Unavailable Unavailable Cougler, S Wily HEAD OF SALES Unavailable Unavailable Cougler, S Wily HEAD OF SALES Unavailable Unavailable Cougler, S Wily HEAD OF SALES Unavailable Unavailable Cougler, S Wily HEAD OF SALES Unavailable Unavailable Cougler, S Wily HEAD OF SALES Unavailable Unavailable Cougler, S Wily HEAD OF SALES Unavailable Unavailable Cougler, S Wily HEAD OF SALES Unavailable Unavailable Cougler, S Wily HEAD OF SALES Unavailable Unavailable Cougler, S Wily HEAD OF SALES Unavailable Unavailable Cougler, S Wily HEAD OF SALES Unavailable Unavailable Cougler, S Wily HEAD OF SALES Unavailable Unavailable Cougler, S Wily HEAD OF SALES Unavailable Unavailable Cougler, S Wily HEAD OF SALES Unavailable Unavailable Cougler, S Wily HEAD OF SALES Unavailable Unavailable Cougler, S Wily HEAD OF SALES Unavailable Unavailable Cougler, S Wily HEAD OF SALES Unavailable Unavailable Cougler, S Wily HEAD OF SALES Unavailable Unavailable Cougler, S Wily HEAD OF SALES Unavailable Unavailable Cougler, S Wily HEAD OF SALES Unavailable Unavailable Cougler, S Wily HEAD OF SALES Unavailable Unavailable Cougler, S Wily HEAD OF SALES Unavailable Unavailable Cougler, S Wily HEAD OF SALES Unavailable Unavailable Cougler, S Wily HEAD OF SALES Unavailable Unavailable Cougler, S Wily HEAD OF SALES Unavailable Unavailable Cougler, S Iwly HEAD OF SALES Unavailable Unavailable Cougler, S Wily HEAD OF SALES Unavailable Unavailable AGARWAL, B DANNY EARLY Unavailable Unavailable AGARWAL, B DANNY EARLY Unavailable Unavailable AGARWAL, B DANNY EARLY Unavailable Unavailable AGARWAL, B DANNY EARLY Unavailable Unavailable AGARWAL, B DANNY EARLY Unavailable Unavailable AGARWAL, B DANNY EARLY Unavailable Unavailable AGARWAL, B DANNY EARLY Unavailable Unavailable AGARWAL, B DANNY EARLY Unavailable Unavailable AGARWAL, B DANNY EARLY Unavailable Unavailable AGARWAL, B DANNY EARLY Unavailable Unavailable AGARWAL, B DANNY EARLY Unavailable Unavailable AGARWAL, B DANNY EARLY Unavailable Unavailable AGARWAL, B DANNY EARLY Unavailable Unavailable AGARWAL, B DANNY EARLY Unavailable Unavailable AGARWAL, B DANNY EARLY Unavailable Unavailable AGARWAL, B DANNY EARLY Unavailable Unavailable AGARWAL, B DANNY EARLY Unavailable Unavailable AGARWAL, B DANNY EARLY Unavailable Unavailable AGARWAL, B DANNY EARLY Unavailable Unavailable AGARWAL, B DANNY EARLY Unavailable Unavailable AGARWAL, B DANNY EARLY Unavailable Unavailable AGARWAL, B DANNY EARLY Unavailable Unavailable AGARWAL, B DANNY EARLY Unavailable Unavailable AGARWAL, B DANNY EARLY Unavailable Unavailable AGARWAL, B DANNY EARLY Unavailable Unavailable AGARWAL, B DANNY EARLY Unavailable Unavailable AGAWRAL, B DANNY EARLY Unavailable Unavailable AGARWAL, B DANNY EARLY Unavailable Unavailable MARAVEGIAS, N JOHNY EARLY Unavailable Unavailable MARAVEGIAS, Inna MCCLAIN MD Unavailable Unavailable MARAVEGIAS, Inna MCCLAIN MD Unavailable Unavailable MARAVEGIAS, Inna MCCLAIN MD Unavailable Unavailable MARAVEGIAS, Inna MCCLAIN MD Unavailable Unavailable MARAVEGIAS, Inna MCCLAIN MD Unavailable Unavailable MARAVEGIAS, Inna MCCLAIN MD Unavailable Unavailable MARAVEGIAS, Inna MCCLAIN MD Unavailable Unavailable MARAVEGIAS, Inna MCCLAIN MD Unavailable Unavailable MARAVEGIAS, Inna MCCLAIN MD Unavailable Unavailable MARAVEGIAS, Inna MCCLAIN MD Unavailable Unavailable MARAVEGIAS, N JOHNY EARLY Unavailable Unavailable MARAVEGIAS, N JOHNY EARLY Unavailable Unavailable MARAVEGIAS, N JOHNY EARLY Unavailable Unavailable Aydlett, F John PA Unavailable Unavailable Brigitte, F John PA Unavailable Unavailable Aydlett, F John PA Unavailable Unavailable Aydlett, F John PA Unavailable Unavailable Aydlett, F John PA Unavailable Unavailable Brigitte, F John PA Unavailable Unavailable Aydlett, F John PA Unavailable Unavailable Aydlett, F John PA Unavailable Unavailable Aydlett, F John PA Unavailable Unavailable Aydlett, F John PA Unavailable Unavailable ZEGIL, D JOSLYN SALES EXECUTIVE Unavailable Unavailable ZEGIL, D JOSLYN SALES EXECUTIVE Unavailable Unavailable ZEGIL, D JOSLYN SALES EXECUTIVE Unavailable Unavailable MARKWITH, ELIZABETH EARLY Unavailable Unavailable MARKWITH, ELIZABETH EARLY Unavailable Unavailable MARKWITH, ELIZABETH EARLY Unavailable Unavailable MARKWITH, ELIZABETH EARLY Unavailable Unavailable MARKWITH, ELIZABETH EARLY Unavailable Unavailable MARKWITH, ELIZABETH EARLY Unavailable Unavailable MARKWITH, ELIZABETH EARLY Unavailable Unavailable MARKWITH, ELIZABETH EARLY Unavailable Unavailable MARKWITH, ELIZABETH EARLY Unavailable Unavailable MARKWITH, ELIZABETH EARLY Unavailable Unavailable MARKWITH, ELIZABETH EARLY Unavailable Unavailable MARKWITH, ELIZABETH EARLY Unavailable Unavailable MARKWITH, ELIZABETH EARLY Unavailable Unavailable MARKWITH, ELIZABETH EARLY Unavailable Unavailable MARKWITH, ELIZABETH EARLY Unavailable Unavailable MARKWITH, ELIZABETH EARLY Unavailable Unavailable MARKWITH, ELIZABETH EARLY Unavailable Unavailable MARKWITH, ELIZABETH EARLY Unavailable Unavailable MARKWITH, ELIZABETH EARLY Unavailable Unavailable MARKWITH, ELIZABETH EARLY Unavailable Unavailable MARKWITH, ELIZABETH EARLY Unavailable Unavailable MARKWITH, ELIZABETH EARLY Unavailable Unavailable MARKWITH, ELIZABETH EARLY Unavailable Unavailable MARKWITH, ELIZABETH EARLY Unavailable Unavailable MARKWITH, ELIZABETH EARLY Unavailable Unavailable MARKWITH, ELIZABETH EARLY Unavailable Unavailable MARKWITH, ELIZABETH EARLY Unavailable Unavailable MARKWITH, ELIZABETH EARLY Unavailable Unavailable MARKWITH, ELIZABETH EARLY Unavailable Unavailable MARKWITH, ELIZABETH EARLY Unavailable Unavailable MARKWITH, ELIZABETH EARLY Unavailable Unavailable MARKWITH, ELIZABETH EARLY Unavailable Unavailable MARKWITH, ELIZABETH EARLY Unavailable Unavailable Re-disclosure Warning The records that you are about to access may contain information from federally-assisted alcohol or drug abuse programs. If such information is present, then the following federally mandated warning applies: This information has been disclosed to you from records protected by federal confidentiality rules (42 CFR part 2). The federal rules prohibit you from making any further disclosure of this information unless further disclosure is expressly permitted by the written consent of the person to whom it pertains or as otherwise permitted by 42 CFR part 2. A general authorization for the release of medical or other information is NOT sufficient for this purpose. The Federal rules restrict any use of the information to criminally investigate or prosecute any alcohol or drug abuse patient.The records that you are about to access may contain highly sensitive health information, the redisclosure of which is protected by Article 27-F of the [place] State Public Health law. If you continue you may have access to information: Regarding HIV / AIDS; Provided by facilities licensed or operated by the [facility] Office of Mental Health; or Provided by the [facility] Office for People With Developmental Disabilities. If such information is present, then the following [facility] mandated warning applies: This information has been disclosed to you from confidential records which are protected by state law. State law prohibits you from making any further disclosure of this information without the specific written consent of the person to whom it pertains, or as otherwise permitted by law. Any unauthorized further disclosure in violation of state law may result in a fine or fpc sentence or both. A general authorization for the release of medical or other information is NOT sufficient authorization for further disc losure. Allergies and Adverse Reactions Type Description Substance Reaction Status Data Source(s ) Drug allergy Drug allergy No Known Allergies [facility] Encounters Encounter Providers Location Date Indications Data Source(s ) [facility] 10/12/2020 08:55:00 AM EST - 10/12/2020 08:56:00 AM [facility] Patient discharged. Outpatient Att[facility] 11/11/2019 10:18:00 AM EST - 09/10/2020 10:19:00 AM EST [facility] Patient discharged. Outpatient Attender: DANNY [facility]WAL [facility]/26 11:00:00 AM EST - 08/26/2020 11:01:00 AM [facility] Patient discharged. Outpatient Attender: Wily Craig [facility] 08/19 09:35:00 AM EST - 08/19/2020 09:36:00 AM EST F329 [facility] F329 Patient discharged. Outpatient Attender: ELIZABETH DAVE MD Physical Therapy 10:44:00 AM EST [facility] ([facility] ) Outpatient Attender: Sherlyn Shannon MD [facility] 020 07:40:00 AM EDT - 04/22/2020 07:41:00 AM EDT SEIZURE DISORDER [facility] SEIZURE DISORDER Patient discharged. Emergency Attender: JOSLYN BONILLA [facility] ED-ED 03/03 04:34:00 PM EDT - 03/25/2020 05:39:00 PM EDT FELL [facility] FELL Patient discharged. Emergency Attender: Wily Craig NP ED-ED 03/14 12:08:00 PM EDT - 03/14/2020 12:41:00 PM EDT FACE SWOLLEN [facility] FACE SWOLLEN Patient discharged. Outpatient [facility] 03/09/2020 08:15:00 PM EDT [facility] Emergency Attender: JOHNY RAY MD ED-ED 0 03/09/2020 04:33:00 PM EDT - 03/09/2020 08:50:00 PM EDT SEIZURES [facility] SEIZURES Patient discharged. Emergency Attender: John ELLISON ED-ED 11:03:00 AM EDT - 12/18/2019 12:48:00 PM EDT COUGH, SOB [facility] COUGH, SOB Patient discharged. Medications Medication Brand Name Start Date Product Form Dose Route Admi nistrative Instructions Pharmacy Instructions Status Indications Reaction Description Data Source(s) olanzapine 20 MG Oral Tablet OLANZAPINE 10/12/2020 12:00:00 AM EST tab let 30 TAKE 1 TABLET BY MOUTH ONCE DAILY TAKE 1 TABLET BY MOUTH ONCE DAILY SOLD: 10/16/2020 [facility] 600 mg 10/12/2020 12:00:00 AM EST tablet 60 TAKE ONE TABLET BY MOUTH TWICE A DAY TAKE ONE TABLET BY MOUTH TWICE A DAY SOLD: 10/16/2020 [facility] 5-325 mg 08/26/2020 12:00:00 AM EST tablet 28 TAKE ONE TABLET BY MOUTH EVERY 6 HOURS NEEDED FOR 7 DAYS MAXIMUM DAILY DOSE = 4 TAKE ONE TABLET BY MOUTH EVERY 6 HOURS NEEDED FOR 7 DAYS MAXIMUM DAILY DOSE = 4 SOLD: 08/28/2020 [facility] 600 mg 08/19/2020 12:00:00 AM EST tablet 90 TAKE ONE TABLET BY MOUTH THREE TIMES A DAY WITH FOOD OR MILK NEEDED TAKE ONE TABLET BY MOUTH THREE TIMES A DAY WITH FOOD OR MILK NEEDED SOLD: 08/26/2020 [facility] 1,000 mg 08/17/2020 12:00:00 AM EST tablet 135 TAKE 2 TABLETS BY MOUTH EVERY MORNING AND 2 & 1/2 TABLETS EVERY EVENING TAKE 2 TABLETS BY MOUTH EVERY MORNING AND 2 & 1/2 TABLETS EVERY EVENING SOLD: 10/16/2020 [facility] 1,000 mg 08/17/2020 12:00:00 AM EST tablet 135 TAKE 2 TABLETS BY MOUTH EVERY MORNING AND 2 & 1/2 TABLETS EVERY EVENING TAKE 2 TABLETS BY MOUTH EVERY MORNING AND 2 & 1/2 TABLETS EVERY EVENING SOLD: 09/14/2020 [facility] olanzapine 20 MG Oral Tablet OLANZAPINE 08/17/2020 12:00:00 AM EST tab let 30 TAKE ONE TABLET BY MOUTH EVERY DAY TAKE ONE TABLET BY MOUTH EVERY DAY SOLD: 08/17/2020 [facility] 1,000 mg 08/17/2020 12:00:00 AM EST tablet 135 TAKE 2 TABLETS BY MOUTH EVERY MORNING AND 2 & 1/2 TABLETS EVERY EVENING TAKE 2 TABLETS BY MOUTH EVERY MORNING AND 2 & 1/2 TABLETS EVERY EVENING SOLD: 08/17/2020 [facility] olanzapine 20 MG Oral Tablet OLANZAPINE 08/17/2020 12:00:00 AM EST tab let 30 TAKE ONE TABLET BY MOUTH EVERY DAY TAKE ONE TABLET BY MOUTH EVERY DAY SOLD: 09/14/2020 [facility] 600 mg 08/17/2020 12:00:00 AM EST tablet 60 TAKE ONE TABLET BY MOUTH TWICE A DAY TAKE ONE TABLET BY MOUTH TWICE A DAY SOLD: 08/17/2020 [facility] 600 mg 08/17/2020 12:00:00 AM EST tablet 60 TAKE ONE TABLET BY MOUTH TWICE A DAY TAKE ONE TABLET BY MOUTH TWICE A DAY SOLD: 09/14/2020 [facility] olanzapine 20 MG Oral Tablet OLANZAPINE 05/15/2020 12:00:00 AM EDT tab let 30 TAKE ONE TABLET BY MOUTH EVERY DAY TAKE ONE TABLET BY MOUTH EVERY DAY SOLD: 06/18/2020 [facility] 600 mg 05/15/2020 12:00:00 AM EDT tablet 60 TAKE ONE TABLET BY MOUTH TWICE A DAY TAKE ONE TABLET BY MOUTH TWICE A DAY SOLD: 06/18/2020 [facility] 20 mg 05/15/2020 12:00:00 AM EDT tablet 30 TAKE ONE TABLET BY MOUTH EVERY DAY TAKE ONE TABLET BY MOUTH EVERY DAY SOLD: 07/15/2020 [facility] 600 mg 05/15/2020 12:00:00 AM EDT tablet 60 TAKE ONE TABLET BY MOUTH TWICE A DAY TAKE ONE TABLET BY MOUTH TWICE A DAY SOLD: 05/19/2020 [facility] 20 mg 05/15/2020 12:00:00 AM EDT tablet 30 TAKE ONE TABLET BY MOUTH EVERY DAY TAKE ONE TABLET BY MOUTH EVERY DAY SOLD: 05/19/2020 [facility] 600 mg 05/15/2020 12:00:00 AM EDT tablet 60 TAKE ONE TABLET BY MOUTH TWICE A DAY TAKE ONE TABLET BY MOUTH TWICE A DAY SOLD: 07/15/2020 [facility] 75 mg 03/31/2020 12:00:00 AM EDT capsule 14 TAKE ONE CAPSULE BY MOUTH TWICE A DAY FOR 7 DAYS MAXIMUM DAILY DOSE = 2 TAKE ONE CAPSULE BY MOUTH TWICE A DAY FOR 7 DAYS MAXIMUM DAILY DOSE = 2 SOLD: 03/31/2020 [facility] 75 mg 03/23/2020 12:00:00 AM EDT capsule 14 TAKE ONE CAPSULE BY MOUTH TWICE A DAY FOR 7 DAYS MAXIMUM DAILY DOSE = 2 TAKE ONE CAPSULE BY MOUTH TWICE A DAY FOR 7 DAYS MAXIMUM DAILY DOSE = 2 SOLD: 03/23/2020 [facility] 75 mg 03/15/2020 12:00:00 AM EDT capsule 14 TAKE ONE CAPSULE BY MOUTH TWICE A DAY FOR 7 DAYS MAXIMUM DAILY DOSE = 2 TAKE ONE CAPSULE BY MOUTH TWICE A DAY FOR 7 DAYS MAXIMUM DAILY DOSE = 2 SOLD: 03/15/2020 [facility] 875-125 mg 03/14/2020 12:00:00 AM EDT tablet 20 TAKE ONE TABLET BY MOUTH EVERY 12 HOURS UNTIL GONE TAKE ONE TABLET BY MOUTH EVERY 12 HOURS UNTIL GONE SOLD: 03/14/2020 [facility] 2 % 03/14/2020 12:00:00 AM EDT ointment 22 APPLY TO AFFECTED AREA(S) ON LOWER LIP AND CHIN TWO TIMES A DAY APPLY TO AFFECTED AREA(S) ON LOWER LIP A ND CHIN TWO TIMES A DAY SOLD: 03/14/2020 [facility] 150 mg 03/09/2020 12:00:00 AM EDT capsule 14 TAKE ONE CAPSULE BY MOUTH TWICE A DAY FOR 7 DAYS MAXIMUM DAILY DOSE = 2 TAKE ONE CAPSULE BY MOUTH TWICE A DAY FOR 7 DAYS MAXIMUM DAILY DOSE = 2 SOLD: 03/10/2020 [facility] 600 mg 02/23/2020 12:00:00 AM EDT tablet 60 TAKE ONE TABLET BY MOUTH TWICE A DAY TAKE ONE TABLET BY MOUTH TWICE A DAY SOLD: 03/23/2020 [facility] 600 mg 02/23/2020 12:00:00 AM EDT tablet 60 TAKE ONE TABLET BY MOUTH TWICE A DAY TAKE ONE TABLET BY MOUTH TWICE A DAY SOLD: 02/23/2020 [facility] 600 mg 02/23/2020 12:00:00 AM EDT tablet 60 TAKE ONE TABLET BY MOUTH TWICE A DAY TAKE ONE TABLET BY MOUTH TWICE A DAY SOLD: 04/19/2020 [facility] 20 mg 02/23/2020 12:00:00 AM EDT tablet 30 TAKE ONE TABLET BY MOUTH EVERY DAY TAKE ONE TABLET BY MOUTH EVERY DAY SOLD: 04/19/2020 [facility] 20 mg 02/23/2020 12:00:00 AM EDT tablet 30 TAKE ONE TABLET BY MOUTH EVERY DAY TAKE ONE TABLET BY MOUTH EVERY DAY SOLD: 02/23/2020 [facility] 20 mg 02/23/2020 12:00:00 AM EDT tablet 30 TAKE ONE TABLET BY MOUTH EVERY DAY TAKE ONE TABLET BY MOUTH EVERY DAY SOLD: 03/23/2020 [facility] 300 mg 01/02/2020 12:00:00 AM EDT capsule 180 TAKE ONE CAPSULE BY MOUTH TWICE A DAY MAXIMUM DAILY DOSE = 2 TAKE ONE CAPSULE BY MOUTH TWICE A DAY MA XIMUM DAILY DOSE = 2 SOLD: 01/02/2020 [facility] 20 mg 12/18/2019 12:00:00 AM EDT tablet 7 TAKE 2 TABLETS BY MOUTH DAILY FOR 2 DAYS, 1 DAILY FOR 2 DAYS, THEN 1/2 TABLET DAILY FOR 2 DAYS TAKE 2 TABLETS BY MOUTH DAILY FOR 2 DAYS, 1 DAILY FOR 2 DAYS, THEN 1/2 TABLET DAILY FOR 2 DAYS SOLD: 12/18/2019 [facility] benzonatate 100 MG Oral Capsule BENZONATATE 12/18/2019 12:00:00 AM EDT capsule 20 TAKE ONE CAPSULE BY MOUTH EVERY 6 HOURS FOR COUGH TAKE ONE CAPSULE BY MOUTH EVERY 6 HOURS FOR COUGH SOLD: 12/18/2019 [facility] 90 mcg/actuation 12/18/2019 12:00:00 AM EDT HFA aerosol inha ler 18 INHALE TWO PUFFS BY MOUTH EVERY 4 HOURS NEEDED FOR SHORTNESS OF BREATH INHALE TWO PUFFS BY MOUTH EVERY 4 HOURS NEEDED FOR SHORTNESS OF BREATH SOLD: 12/18/2019 [facility] 20 mg 12/03/2019 12:00:00 AM EST tablet 30 TAKE ONE TABLET BY MOUTH EVERY DAY TAKE ONE TABLET BY MOUTH EVERY DAY SOLD: 01/27/2020 [facility] 20 mg 12/03/2019 12:00:00 AM EST tablet 30 TAKE ONE TABLET BY MOUTH EVERY DAY TAKE ONE TABLET BY MOUTH EVERY DAY SOLD: 01/02/2020 [facility] 20 mg 12/03/2019 12:00:00 AM EST tablet 30 TAKE ONE TABLET BY MOUTH EVERY DAY TAKE ONE TABLET BY MOUTH EVERY DAY SOLD: 12/08/2019 [facility] 600 mg 12/03/2019 12:00:00 AM EST tablet 60 TAKE ONE TABLET BY MOUTH TWICE A DAY TAKE ONE TABLET BY MOUTH TWICE A DAY SOLD: 01/27/2020 [facility] 600 mg 12/03/2019 12:00:00 AM EST tablet 60 TAKE ONE TABLET BY MOUTH TWICE A DAY TAKE ONE TABLET BY MOUTH TWICE A DAY SOLD: 12/08/2019 [facility] 600 mg 12/03/2019 12:00:00 AM EST tablet 60 TAKE ONE TABLET BY MOUTH TWICE A DAY TAKE ONE TABLET BY MOUTH TWICE A DAY SOLD: 01/02/2020 [facility] 300 mg 10/06/2019 12:00:00 AM EST capsule 180 TAKE ONE CAPSULE BY MOUTH TWICE A DAY MAXIMUM DAILY DOSE = 2 TAKE ONE CAPSULE BY MOUTH TWICE A DAY MA CATHYM DAILY DOSE = 2 SOLD: 10/06/2019 [facility] 1,000 mg 09/18/2019 12:00:00 AM EST tablet 135 TAKE 2 TABLETS BY MOUTH EVERY MORNING AND 2 & 1/2 TABLETS EVERY EVENING TAKE 2 TABLETS BY MOUTH EVERY MORNING AND 2 & 1/2 TABLETS EVERY EVENING SOLD: 02/23/2020 [facility] 1,000 mg 09/18/2019 12:00:00 AM EST tablet 135 TAKE 2 TABLETS BY MOUTH EVERY MORNING AND 2 & 1/2 TABLETS EVERY EVENING TAKE 2 TABLETS BY MOUTH EVERY MORNING AND 2 & 1/2 TABLETS EVERY EVENING SOLD: 01/27/2020 [facility] 1,000 mg 09/18/2019 12:00:00 AM EST tablet 135 TAKE 2 TABLETS BY MOUTH EVERY MORNING AND 2 & 1/2 TABLETS EVERY EVENING TAKE 2 TABLETS BY MOUTH EVERY MORNING AND 2 & 1/2 TABLETS EVERY EVENING SOLD: 03/23/2020 [facility] 1,000 mg 09/18/2019 12:00:00 AM EST tablet 135 TAKE 2 TABLETS BY MOUTH EVERY MORNING AND 2 & 1/2 TABLETS EVERY EVENING TAKE 2 TABLETS BY MOUTH EVERY MORNING AND 2 & 1/2 TABLETS EVERY EVENING SOLD: 07/15/2020 [facility] 1,000 mg 09/18/2019 12:00:00 AM EST tablet 135 TAKE 2 TABLETS BY MOUTH EVERY MORNING AND 2 & 1/2 TABLETS EVERY EVENING TAKE 2 TABLETS BY MOUTH EVERY MORNING AND 2 & 1/2 TABLETS EVERY EVENING SOLD: 04/19/2020 [facility] 1,000 mg 09/18/2019 12:00:00 AM EST tablet 405 TAKE 2 TABLETS BY MOUTH EVERY MORNING AND 2 & 1/2 TABLETS EVERY EVENING TAKE 2 TABLETS BY MOUTH EVERY MORNING AND 2 & 1/2 TABLETS EVERY EVENING SOLD: 09/18/2019 [facility] 1,000 mg 09/18/2019 12:00:00 AM EST tablet 135 TAKE 2 TABLETS BY MOUTH EVERY MORNING AND 2 & 1/2 TABLETS EVERY EVENING TAKE 2 TABLETS BY MOUTH EVERY MORNING AND 2 & 1/2 TABLETS EVERY EVENING SOLD: 12/08/2019 [facility] 1,000 mg 09/18/2019 12:00:00 AM EST tablet 135 TAKE 2 TABLETS BY MOUTH EVERY MORNING AND 2 & 1/2 TABLETS EVERY EVENING TAKE 2 TABLETS BY MOUTH EVERY MORNING AND 2 & 1/2 TABLETS EVERY EVENING SOLD: 05/19/2020 [facility] 1,000 mg 09/18/2019 12:00:00 AM EST tablet 135 TAKE 2 TABLETS BY MOUTH EVERY MORNING AND 2 & 1/2 TABLETS EVERY EVENING TAKE 2 TABLETS BY MOUTH EVERY MORNING AND 2 & 1/2 TABLETS EVERY EVENING SOLD: 01/02/2020 [facility] 1,000 mg 09/18/2019 12:00:00 AM EST tablet 135 TAKE 2 TABLETS BY MOUTH EVERY MORNING AND 2 & 1/2 TABLETS EVERY EVENING TAKE 2 TABLETS BY MOUTH EVERY MORNING AND 2 & 1/2 TABLETS EVERY EVENING SOLD: 06/18/2020 [facility] 20 mg 09/10/2019 12:00:00 AM EST tablet 30 TAKE ONE TABLET BY MOUTH EVERY DAY TAKE ONE TABLET BY MOUTH EVERY DAY SOLD: 09/16/2019 [facility] 600 mg 09/10/2019 12:00:00 AM EST tablet 60 TAKE ONE TABLET BY MOUTH TWICE A DAY TAKE ONE TABLET BY MOUTH TWICE A DAY SOLD: 10/13/2019 [facility] 20 mg 09/10/2019 12:00:00 AM EST tablet 30 TAKE ONE TABLET BY MOUTH EVERY DAY TAKE ONE TABLET BY MOUTH EVERY DAY SOLD: 11/08/2019 [facility] 20 mg 09/10/2019 12:00:00 AM EST tablet 30 TAKE ONE TABLET BY MOUTH EVERY DAY TAKE ONE TABLET BY MOUTH EVERY DAY SOLD: 10/13/2019 [facility] 600 mg 09/10/2019 12:00:00 AM EST tablet 60 TAKE ONE TABLET BY MOUTH TWICE A DAY TAKE ONE TABLET BY MOUTH TWICE A DAY SOLD: 09/16/2019 [facility] 600 mg 09/10/2019 12:00:00 AM EST tablet 60 TAKE ONE TABLET BY MOUTH TWICE A DAY TAKE ONE TABLET BY MOUTH TWICE A DAY SOLD: 11/08/2019 [facility] 300 mg 07/08/2019 12:00:00 AM EDT capsule 60 TAKE ONE CAPSULE BY MOUTH TWICE A DAY MAXIMUM DAILY DOSE = 2 TAKE ONE CAPSULE BY MOUTH TWICE A DAY MA XIMUM DAILY DOSE = 2 SOLD: 09/07/2019 [facility] Insurance Providers Payer name Policy type / Coverage type Policy ID Covered green party ID Covered green party's relationship to nelson Policy Nelson Plan Information MEDICARE [id number] SP [id number] EMEDNY [id number] SP [id number] MEDICARE [id number] Other [id number] [id number] MEDICAID [id number] Other [id number] MEDICARE C [id number] S [id number] [id number] MEDICAID M [id number] MEDICARE [id number] S [id number] [id number] MEDICAID [id number] S [id number] MEDICAID [id number] Other [id number] MEDICARE [id number] Other [id number] MEDICARE [id number] SP [id number] MEDICARE [id number] S [id number] ANS-Medicare Part B [id number] ANSI-Medicaid [id number] ANSI-Medicare Part B [id number] ANSI-Medicare Part B [id number] ANSI-Medicare Part B [id number] ANSI-Medicaid [id number] MCRB [id number] S [id number] MEDICAID [id number] MEDICARE [id number] S [id number] ANSI-Medicare Part B [id number] ANSI-Medicare Part B [id number] ANSI-Medicaid [id number] MEDICAID PROF FEES [id number] S C [id number] MCRB [id number] S [id number] A ANSI-Medicare Part B [id number] ANSI-Medicare Part B [id number] ANSI-Medicaid [id number] ANSI-Medicaid [id number] ANSI-Medicare Part B [id number] ANSI-Medicare Part B [id number] ANSI-Medicaid [id number] ANSI-Medicare Part B [id number] ANSI-Medicare Part B [id number] ANSI-Medicaid [id number] ANSI-Medicare Part B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 %(RAD)RES..mtdd.print.filter("line") Name: SHUBHAM BURNETT : 1980 Age/Sex: 39M Ordering Provider: Johny Ray MD Med Rec #: [id number] Reg Status: [facility] Room #: Date of Service: 03/09/20 Report Number: [id number] cc:PCP None Send Report To: [id number] XRP/XR Chest Xray Portable Reason for exam: seizure Comparison: 12/24/17. FINDINGS: Tracheostomy tube is noted at the thoracic inlet. Lung josue are clear. Heart and mediastinum are normal. IMPRESSION: No acute disease. Time port able performed: 1735 Fluoroscopy time in seconds: Number of Exposures: Contrast Agent in ml: Method of Administration: REPORT SIGNATURE ON FILE Reported By: Gilberto Vaughn MD <Electronically signed by Gilberto Vaughn MD> 03/10/20 1002 Dictation Date/Time: 03/09/20 1830 Transcribed Date/Time: 03/10/20 0552 Finished Cigar Maker: BLANCA Name Value Range Interpretation Code Description Data [facility] rce(s) Supporting Document(s) ID Date Data Source [id number] 12/18/2019 12:01:00 PM EDT [facility] spital Method performed by Isothermal Nucle ic Acid Amplification. Reference value: Influenza A and B viral RNA not detected. This result does not rule out co-infections with other pathogens or identify any specific influenza A or B virus subtype/lineage. Negative results do not preclude infection with influenza virus and should not be the sole basis of a patient treatment decision.Not DetectedNot Detected Name Value Range Interpretation Code Description Data [facility] rce(s) Supporting Document(s) Procedure Vital Signs ID Date Data Source [id number] 08/20/2020 12:02:00 AM EST [facility] spital Name Value Range Interpretation Code Description Data Source(s) Weight (Calculated Kilograms) 100.79 100.79 [facility] Height (Calculated Centimeters) 180.34 180. 34 [facility] Body Mass Index (BMI) 30.9 30.9 [facility] ID Date Data Source [id number] 03/25/2020 05:46:00 PM EDT [facility] spital Name Value Range Interpretation Code Description Data Source(s) Weight Measurement Method 8 8 [facility] Weight (Calculated Kilograms) 100.79 100.79 [facility] Weight 2720 2720 [facility] pital Temperature Source 7 7 [facility] Temperature 98 98 [facility] spital Respiratory Effort 1 1 [facility] Respiratory Rate 16 16 [facility] Pulse Assessment Method 4 4 G [facility] Pulse Rate 78 78 [facility] Height (Calculated Centimeters) 180.34 180. 34 [facility] Height 71 71 [facility] pital Blood Pressure 140/101 140/101 [facility] Body Mass Index (BMI) 30.9 30.9 [facility] Weight Measurement Method 8 8 [facility] Weight (Calculated Kilograms) 100.79 100.79 [facility] Weight 2720 2720 [facility] pital Temperature Source 7 7 [facility] Temperature 98 98 [facility] spital Respiratory Effort 1 1 [facility] Respiratory Rate 16 16 [facility] Pulse Assessment Method 4 4 G [facility] Pulse Rate 78 78 [facility] pital Height (Calculated Centimeters) 180.34 180. 34 [facility] Height 71 71 [facility] pital Blood Pressure 140/101 140/101 [facility] Body Mass Index (BMI) 30.9 30.9 [facility] Weight Measurement Method 8 8 [facility] Weight (Calculated Kilograms) 100.79 100.79 [facility] Weight 2720 2720 [facility] pital Temperature Source 7 7 [facility] Temperature 98 98 [facility] spital Respiratory Effort 1 1 [facility] Respiratory Rate 16 16 [facility] Pulse Assessment Method 4 4 G [facility] Pulse Rate 78 78 [facility] pital Height (Calculated Centimeters) 180.34 180. 34 [facility] Height 71 71 [facility] pital Blood Pressure 140/101 140/101 [facility] Body Mass Index (BMI) 30.9 30.9 [facility] Weight Measurement Method 8 8 [facility] Weight (Calculated Kilograms) 100.79 100.79 [facility] Weight 2720 2720 [facility] pital Temperature Source 7 7 [facility] Temperature 98 98 [facility] spital Respiratory Effort 1 1 [facility] Respiratory Rate 16 16 [facility] Pulse Assessment Method 4 4 G [facility] Pulse Rate 78 78 [facility] pital Height (Calculated Centimeters) 180.34 180. 34 [facility] Height 71 71 [facility] pital Blood Pressure 140/101 140/101 [facility] Body Mass Index (BMI) 30.9 30.9 [facility] Weight (Calculated Kilograms) 100.79 100.79 [facility] Height (Calculated Centimeters) 180.34 180. 34 [facility] Body Mass Index (BMI) 30.9 30.9 [facility] ID Date Data Source [id number] 03/14/2020 12:41:00 PM EDT [facility] spital Name Value Range Interpretation Code Description Data Source(s) Weight Measurement Method 8 8 [facility] Weight (Calculated Kilograms) 100.79 100.79 [facility] Weight 3200 3200 [facility] pital Temperature Source 7 7 [facility] Temperature 98.6 98.6 [facility] spital Respiratory Effort 1 1 [facility] Respiratory Rate 16 16 [facility] Pulse Assessment Method 4 4 G [facility] Pulse Rate 113 113 [facility] pital Height (Calculated Centimeters) 180.34 180. 34 [facility]/111 134/111 [facility] Body Mass Index (BMI) 30.9 30.9 [facility] Weight Measurement Method 8 8 [facility] Weight (Calculated Kilograms) 100.79 100.79 [facility] Weight 3200 3200 [facility] pital Temperature Source 7 7 [facility] Temperature 98.6 98.6 [facility] spital Respiratory Effort 1 1 [facility] Respiratory Rate 16 16 [facility] Pulse Assessment Method 4 4 G [facility] Pulse Rate 113 113 [facility] pital Height (Calculated Centimeters) 180.34 180. 34 [facility]/111 134/111 [facility] Body Mass Index (BMI) 30.9 30.9 [facility] Weight Measurement Method 8 8 [facility] Weight (Calculated Kilograms) 100.79 100.79 [facility] Weight 3200 3200 [facility] pital Temperature Source 7 7 [facility] Temperature 98.6 98.6 [facility] spital Respiratory Effort 1 1 [facility] Respiratory Rate 16 16 [facility] Pulse Assessment Method 4 4 G [facility] 113 [facility] (Calculated Centimeters) 180.34 180. 34 [facility] 134/111 134/111 [facility] Body Mass Index (BMI) 30.9 30.9 [facility] Weight (Calculated Kilograms) 100.79 100.79 [facility] Height (Calculated Centimeters) 180.34 180. 34 [facility] Body Mass Index (BMI) 30.9 30.9 [facility] ID Date Data Source [id number] 03/12/2020 12:07:00 PM EDT [facility] spital Name Value Range Interpretation Code Description Data Source(s) Weight Measurement Method 8 8 [facility] Weight (Calculated Kilograms) 100.79 100.79 [facility] Weight 3360 3360 [facility] pital Temperature Source 7 7 [facility] Temperature 97.1 97.1 [facility] spital Respiratory Effort 1 1 [facility] Respiratory Rate 18 18 [facility] Pulse Assessment Method 4 4 G [facility] (Calculated Cent[facility]) 180.34 180. 34 [facility] 122/90 122/90 [facility] Body Mass Index (BMI) 30.9 30.9 [facility] Weight Measurement Method 8 8 [facility] Weight (Calculated Kilograms) 100.79 100.79 [facility] Weight 3360 3360 [facility] pital Temperature Source 7 7 [facility] Temperature 98.5 98.5 [facility] spital Respiratory Effort 1 1 [facility] Respiratory Rate 20 20 [facility] Pulse Assessment Method 4 4 G [facility] Pulse Rate 101 101 [facility] pital Height (Calculated Centimeters) 180.34 180. 34 [facility] 142/100 142/100 [facility] Body Mass Index (BMI) 30.9 30.9 [facility] Weight Measurement Method 8 8 [facility] Weight (Calculated Kilograms) 100.79 100.79 [facility] Weight 3360 3360 [facility] pital Temperature Source 7 7 [facility] Temperature 98.5 98.5 [facility] spital Respiratory Effort 1 1 [facility] Respiratory Rate 20 20 [facility] Pulse Assessment Method 4 4 G [facility] P[facility] 101 [facility] (Calculated Cent[facility]) 180.34 180. 34 [facility] 142/100 142/100 [facility] Body Mass Index (BMI) 30.9 30.9 [facility] Weight (Calculated Kilograms) 100.79 100.79 [facility] Height (Calculated Centimeters) 180.34 180. 34 [facility] Body Mass Index (BMI) 30.9 30.9 [facility] Weight (Calculated Kilograms) 100.79 100.79 [facility] Height (Calculated Centimeters) 180.34 180. 34 [facility] Body Mass Index (BMI) 30.9 30.9 [facility] ID Date Data Source [id number] 01/21/2020 07:31:00 AM EDT [facility] spital Name Value Range Interpretation Code Description Data Source(s) Weight Measurement Method 8 8 [facility] Weight (Calculated Kilograms) 100.79 100.79 [facility] Weight 3360 3360 [facility] pital Temperature Source 7 7 [facility] Temperature 97.8 97.8 [facility] spital Respiratory Effort 1 1 [facility] Respiratory Rate 16 16 [facility] Pulse Assessment Method 4 4 G [facility] Pulse Rate 74 74 [facility] pital Height (Calculated Centimeters) 180.34 180. 34 [facility] Height 71 71 [facility] pital Blood Pressure 155/94 155/94 [facility] Body Mass Index (BMI) 30.9 30.9 [facility] Weight Measurement Method 8 8 [facility] Weight (Calculated Kilograms) 100.79 100.79 [facility] Weight 3360 3360 [facility] pital Temperature Source 7 7 [facility] Temperature 97.8 97.8 [facility] spital Respiratory Effort 1 1 [facility] Respiratory Rate 16 16 [facility] Pulse Assessment Method 4 4 G [facility] Pulse Rate 74 74 [facility] pital Height (Calculated Centimeters) 180.34 180. 34 [facility] Height 71 71 [facility] pital Blood Pressure 153/121 153/121 [facility] Body Mass Index (BMI) 30.9 30.9 [facility] Weight Measurement Method 8 8 [facility] Weight (Calculated Kilograms) 100.79 100.79 [facility] Weight 3360 3360 [facility] pital Temperature Source 7 7 [facility] Temperature 97.8 97.8 [facility] spital Respiratory Effort 1 1 [facility] Respiratory Rate 16 16 [facility] Pulse Assessment Method 4 4 G [facility] Pulse Rate 102 102 [facility] pital Height (Calculated Centimeters) 180.34 180. 34 [facility] Height 71 71 [facility] pital Blood Pressure 153/121 153/121 [facility] Body Mass Index (BMI) 30.9 30.9 [facility] Weight (Calculated Kilograms) 100.79 100.79 [facility] Height (Calculated Centimeters) 180.34 180. 34 [facility] Body Mass Index (BMI) 30.9 309 [facility]
[2020-11-05] MEDS ORDERED: NS 1,000 ML IV ONE (21:30)
[2020-11-05 21:53] LABS: BASO # 0.1 10^3/uL (0.0-0.2); BASO % 0.9 % (0.0-1.0); EOS # 0.3 10^3/uL (0.0-0.5); EOS % 3.3 % (0.0-3.0); HEMATOCRIT 40.9 % (42.0-52.0); HEMOGLOBIN 14.7 g/dl (13.5-17.5); LYMPH # 2.1 10^3/uL (1.5-5.0); MEAN CORPUSCULAR HGB CONC 35.9 g/dl (32.0-36.5); MEAN CORPUSCULAR VOLUME 83.5 fl (80.0-96.0); MONO # 0.5 10^3/uL (0.0-0.8); MONO % 6.7 % (0.0-5.0); NEUTROPHILS # 4.6 10^3/uL (1.5-8.5); NEUTROPHILS % 60.7 % (36.0-66.0); PLATELET COUNT, AUTOMATED 243 10^3/uL (150-450); WHITE BLOOD COUNT 7.5 10^3/uL (4.0-10.0)
[2020-11-05 22:10] LABS: AMPHETAMINES LEVEL URINE NEGATIVE (NEGATIVE); BARBITURATES URINE NEGATIVE (NEGATIVE); BENZODIAZEPINES URINE NEGATIVE (NEGATIVE); CANNABINOIDS URINE NEGATIVE (NEGATIVE); COCAINE METABOLITE URINE NEGATIVE (NEGATIVE); METHADONE URINE NEGATIVE (NEGATIVE); OPIATES URINE NEGATIVE (NEGATIVE); PHENCYCLIDINE URINE NEGATIVE (NEGATIVE)
[2020-11-05 22:33] LABS: ACETAMINOPHEN LEVEL < 2.0 UG/ML (10.0-30.0); ALBUMIN 4.2 GM/DL (3.2-5.2); ALT/SGPT 93 U/L (12-78); BILIRUBIN,DIRECT 0.2 MG/DL (0.0-0.2); BILIRUBIN,TOTAL 0.4 MG/DL (0.2-1.0); BLOOD UREA NITROGEN 5 MG/DL (7-18); CALCIUM LEVEL 8.4 MG/DL (8.5-10.1); CARBON DIOXIDE LEVEL 25 MEQ/L (21-32); CHLORIDE LEVEL 93 MEQ/L (98-107); CPK CREATINE PHOSPHOKINASE 205 U/L (39-308); CREATININE FOR GFR 0.78 MG/DL (0.70-1.30); ETHYL ALCOHOL (ETHANOL) 0.267 % (0.000-0.010); GLOMERULAR FILTRATION RATE > 60.0 (>60); GLUCOSE, FASTING 84 MG/DL (70-100); POTASSIUM SERUM 3.4 MEQ/L (3.5-5.1); SALICYLATE LEVEL 3.1 MG/DL (5.0-30.0); SODIUM LEVEL 128 MEQ/L (136-145); TOTAL PROTEIN 7.9 GM/DL (6.4-8.2)
--- OUTSIDE RECORDS SUMMARY | 2020-11-05 22:49 | CCD ---
Author Author [facility] Organization [facility] Address Unknown Phone Unavailable Care Team Providers [facility] [employer] Name Role Phone Padilla Canas HAND MITER OPERATOR Unavailable Padilla Canas HAND MITER OPERATOR Unavailable Padilla Canas HAND MITER OPERATOR Unavailable Padilla Canas HAND MITER OPERATOR Unavailable Padilla Canas HAND MITER OPERATOR Unavailable Padilla Canas HAND MITER OPERATOR Unavailable Padilla Canas HAND MITER OPERATOR Unavailable Padilla Canas HAND MITER OPERATOR Unavailable Roxy Shannon MD Unavailable [phone] MaleRoxy kaur MD Unavailable [phone] MaleRoxy kaur MD Unavailable [phone] MaleRoxy kaur MD Unavailable [phone] MaleRoxy kaur MD Unavailable [phone] MaleRoxy kaur MD Unavailable [phone] Malek, Roxy Sherlyn EARLY Unavailable [phone] Malek, Roxy Sherlyn EARLY Unavailable [phone] Malek, Roxy Sherlyn EARLY Unavailable [phone] Malek, Roxy Sherlyn EARLY Unavailable [phone] Malek, Roxy Sherlyn EARLY Unavailable [phone] Malek, Roxy Sherlyn EARLY Unavailable [phone] Malek, Roxy Sherlyn EARLY Unavailable [phone] Cougler, S Wily VINEYARD WORKER Unavailable Unavailable Cougler, S Wily VINEYARD WORKER Unavailable Unavailable Cougler, S Wily VINEYARD WORKER Unavailable Unavailable Cougler, S Wily VINEYARD WORKER Unavailable Unavailable Cougler, S Wily VINEYARD WORKER Unavailable Unavailable Cougler, S Wily VINEYARD WORKER Unavailable Unavailable Cougler, S Wily VINEYARD WORKER Unavailable Unavailable Cougler, S Wily VINEYARD WORKER Unavailable Unavailable Cougler, S Wily VINEYARD WORKER Unavailable Unavailable Cougler, S Wily VINEYARD WORKER Unavailable Unavailable Cougler, S Wily VINEYARD WORKER Unavailable Unavailable Cougler, S Wily VINEYARD WORKER Unavailable Unavailable Cougler, S Wily VINEYARD WORKER Unavailable Unavailable Cougler, S Wily VINEYARD WORKER Unavailable Unavailable Cougler, S Wily VINEYARD WORKER Unavailable Unavailable Cougler, S Wily VINEYARD WORKER Unavailable Unavailable Cougler, S Wily VINEYARD WORKER Unavailable Unavailable Cougler, S Wily VINEYARD WORKER Unavailable Unavailable Cougler, S Wily VINEYARD WORKER Unavailable Unavailable Cougler, S Wily VINEYARD WORKER Unavailable Unavailable Cougler, S Wily VINEYARD WORKER Unavailable Unavailable Cougler, S Wily VINEYARD WORKER Unavailable Unavailable Cougler, S Wily VINEYARD WORKER Unavailable Unavailable Cougler, S Wily VINEYARD WORKER Unavailable Unavailable Cougler, S Wily VINEYARD WORKER Unavailable Unavailable Cougler, S Wily VINEYARD WORKER Unavailable Unavailable Cougler, S Wily VINEYARD WORKER Unavailable Unavailable Cougler, S Wily VINEYARD WORKER Unavailable Unavailable Cougler, S Wily VINEYARD WORKER Unavailable Unavailable Cougler, S Wily VINEYARD WORKER Unavailable Unavailable Cougler, S Wily VINEYARD WORKER Unavailable Unavailable Cougler, S Wily VINEYARD WORKER Unavailable Unavailable Cougler, S Wily VINEYARD WORKER Unavailable Unavailable Cougler, S Wily VINEYARD WORKER Unavailable Unavailable Cougler, S Wily VINEYARD WORKER Unavailable Unavailable Cougler, S Wily VINEYARD WORKER Unavailable Unavailable Cougler, S Wily VINEYARD WORKER Unavailable Unavailable Cougler, S Wily VINEYARD WORKER Unavailable Unavailable Cougler, S Wily VINEYARD WORKER Unavailable Unavailable AGARWAL, B DANNY EARLY Unavailable [...] Unavailable MARAVEGIAS, N JOHNY EARLY Unavailable Unavailable Mantador, F John PA Unavailable Unavailable Brigitte, F John PA Unavailable Unavailable Mantador, F John PA Unavailable Unavailable Mantador, F John PA Unavailable Unavailable Mantador, F John PA Unavailable Unavailable Brigitte, F John PA Unavailable Unavailable Mantador, F John PA Unavailable Unavailable Mantador, F John PA Unavailable Unavailable Mantador, F John PA Unavailable Unavailable Mantador, F John PA Unavailable Unavailable ZEGIL, D JOSLYN HAND MITER OPERATOR Unavailable Unavailable ZEGIL, D JOSLYN HAND MITER OPERATOR Unavailable Unavailable ZEGIL, D JOSLYN HAND MITER OPERATOR Unavailable Unavailable MARKWITH, ELIZABETH EARLY Unavailable Unavailable [...] is protected by Article 27-F of the [place] Public Health law. If you continue you may have access to information: Regarding HIV / AIDS; Provided by facilities licensed or operated by the [facility] Office of Mental Health; or Provided by the [facility] Office for People With Developmental Disabilities. If such information is present, then the following [facility] mandated warning applies: This information has [...] law may result in a fine or senior care sentence or both. A general authorization for the release of medical or other information is NOT sufficient authorization for further disc losure. Allergies and Adverse Reactions Type Description Substance Reaction Status Data Source(s ) Drug allergy Drug allergy No Known Allergies [facility] Encounters Encounter Providers Location Date Indications Data Source(s ) Outpatient Att[facility]: [facility] 10/12/2020 08:55:00 AM EST - 10/12/2020 08:56:[address] [facility] Patient discharged. Outpatient Attender: [facility] 11/11/2019 10:18:00 AM EST - 09/10/2020 10:19:[address] [facility] Patient discharged. Outpatient Attender: DANNY AGARWAL [facility] 08/26 11:00:00 AM EST - 08/26/2020 11:01:[address] [facility] Patient discharged. Outpatient Attender: Wily Craig [facility] 08/19 09:35:00 AM EST - 08/19/2020 09:36:00 AM EST F329 [facility] F329 Patient discharged. Outpatient Attender: ELIZABETH DAVE MD Physical Therapy 10:44:00 AM EST [facility] ([facility] ) Outpatient Attender: Sherlyn Shannon MD [facility] 020 07:40:00 AM EDT - 04/22/2020 07:41:00 AM EDT SEIZURE DISORDER [facility] SEIZURE DISORDER Patient discharged. Emergency Attender: JOSLYN BONILLA [facility] ED-ED 03/03 04:34:00 PM EDT - 03/25/2020 05:39:00 PM EDT FELL [facility] FELL Patient discharged. Emergency Attender: Wily Craig NP ED-ED 03/14 12:08:00 PM EDT - 03/14/2020 12:41:00 PM EDT FACE SWOLLEN [facility] FACE SWOLLEN Patient discharged. Outpatient [facility] 03/09/2020 08:15:[address] [facility] Emergency Attender: JOHNY RAY MD ED-ED 0 03/09/2020 04:33:00 PM EDT - 03/09/2020 08:50:00 PM EDT SEIZURES [facility] SEIZURES Patient discharged. Emergency Attender: John ELLISON ED-ED 11:03:00 AM EDT - 12/18/2019 12:48:00 PM EDT COUGH, SOB [facility] COUGH, SOB Patient discharged. Medications Medication [...] type / Coverage type Policy ID Covered alliance party ID Covered alliance party's relationship to nelson Policy Nelson Plan Information MEDICARE [id number] SP [id number] H07 EMEDNY [id number] SP [id number] MEDICARE [id number] Other [id number] H07 MEDICAID [id number] Other [id number] MEDICARE C [id number] S [id number] H07 MEDICAID M [id number] S [id number] MEDICARE [id number] S [id number] H07 MEDICAID [id number] S [id number] MEDICAID [id number] Other [id number] MEDICARE [id number] Other [id number] A MEDICARE [id number] SP [id number] A MEDICARE [id number] S [id number] A ANS-Medicare Part B [id number] ANSI-Medicaid [id number] ANSI-Medicare Part B [id number] ANSI-Medicare Part B [id number] ANSI-Medicare Part B [id number] ANSI-Medicaid [id number] MCRB [id number] S [id number] A MEDICAID [id number] S [id number] MEDICARE [id number] S [id number] A ANSI-Medicare Part B [id number] ANSI-Medicare Part B [id number] ANSI-Medicaid [id number] MEDICAID PROF FEES [id number] S C [id number] MCRB [id number] S [id number] A ANSI-Medicare Part B [id number] ANSI-Medicare Part B [id number] ANSI-Medicaid [id number] ANSI-Medicaid [id number] ANSI-Medicare Part B [id number] ANSI-Medicare Part B [id number] ANSI-Medicaid [id number] ANSI-Medicare Part B [id number] ANSI-Medicare Part B [id number] ANSI-Medicaid [id number] ANSI-Medicare Part B [id number] ANSI-Medicare Part B [id number] MEDICAID M [id number] Self [id number] MEDICARE A [id number] Self [id number] A MEDICAID [id number] SP [id number] MEDICARE C [id number] S [id number] A MEDICAID [id number] S [id number] MEDICAID [id number] S [id number] MEDICARE -O/P [id number] MEDICAID -O/P [id number] MEDICAID -CLINIC [id number] MEDICARE -CLINIC [id number] MEDICAID PROF FEES [id number] Problems, Conditions, and Diagnoses Code Display Name Description Problem Type Effective Dates Data Source(s) S82.842A Displaced bimalleolar fractu re of left lower leg, initial encounter for closed fracture DISPLACED BIMALLEOLAR FRACTURE OF LEFT LOWER LEG, INIT Diagnosis 09/10/2020 10:18:[address] [facility] Y92.[address] in hospita l as the place of occurrence of the external cause UNSP PLACE IN HOSPITAL PLACE Diagnosis 08/26/2020 11:00 :[address] [facility] W10.8XXA Fall (on) (from) other stairs and steps, initial encounter FALL (ON) (FROM) OTHER STAIRS AND STEPS, INITIAL ENCOUNTER Diagnosis 08/26 11:00:[address] [facility] E66.9 Obesity, unspecified OBESITY, UNSPECIFIED Diagnosis 08/19/2020 09:35:00 AM [facility] F32.9 Major depressive disorder, single episod e, unspecified MAJOR DEPRESSIVE DISORDER, SINGLE EPISODE, UNSPECIFIED Diagnosis 08/19/2020 09:35:00 AM [facility] J20.2 Acute bronchitis due to streptococcus AC YOCHA DEHE BRONCHITIS DUE TO STREPTOCOCCUS Diagnosis 12/18/2019 11:03:00 AM EDT [facility] spital Surgeries/Procedures Procedure Description Date Indications Data Source(s) Hospital outpatient clinic visit for assessment and ma nagement of a patient Hospital Outpatient Clinic Visit 09/10/2020 12:00:[address] [facility] RADEX ANKLE COMPLETE MINIMUM 3 VIEWS X-RAY EXAM OF ANKLE 07/2020 12:00:[address] [facility] CLOSED TX BIMALLEOLAR ANKLE FRACTURE W/O MANJ TREATMENT OF A NKLE FRACTURE 08/26/2020 12:00:[address] [facility] Special casting material (e.g. fiberglass) 08/26/2020 12:00:[address] [facility] FX Bimalleolar Ankle W/Manipulation 08/17/2020 12:00:0 0 AM EST [facility] ([facility] ) Dislocation Ankle W/O Anesthesia 08/17/2020 12:00:00 A M EST [facility] ([facility] ) INFECTIOUS AGENT DNA/RNA INFLUENZA 1ST 2 TYPES INFLUENZA DNA AMP PROBE 12/18/2019 12:00:00 AM [facility] Non-covered item or service 12/18/2019 12:00:00 AM [facility] PRESSURIZED/NONPRESSURIZED INHALATION TREATMENT AIRWAY INHAL ATION TREATMENT 12/18/2019 12:00:00 AM [facility] EMERGENCY DEPARTMENT VISIT MODERATE SEVERITY EMERGENCY DEPT VISIT 12/18/2019 12:00:00 AM [facility] Results ID Date Data Source [id number] 10/12/2020 12:07:00 PM [facility] Name: SHUBHAM BURNETT : 1980 A ge/Sex: 39M Ordering Provider: ANNETTA Ahn Med Rec #: [id number] Reg Status: [facility] Room #: Date of Service: 10/12/20 Report Number: [id number] cc:ANNETTA Ahn Send Report To: [id number] XRP/XR Ankle Lt Min. 3 Views Reason [...] Date/Time: 10/12/20 0935 Transcribed Date/Time: 10/12/20 120 Hot End Operator: LAXMI Name Value Range Interpretation Code Description Data Teresa rce(s) Supporting Document(s) ID Date Data Source [id number] 09/10/2020 12:57:00 PM [facility] Name: SHUBHAM BURNETT : 1980 A ge/Sex: 39M Ordering Provider: ANNETTA Ahn Med Rec #: [id number] Reg Status: [facility] Room #: Date of Service: 09/10/20 Report Number: [id number] cc:ANNETTA Ahn Send Report To: [id number] XRP/XR Ankle Lt Min. 3 Views Reason [...] Date/Time: 09/10/20 1111 Transcribed Date/Time: 09/10/20 1257 Hot End Operator: MICAH Name Value Range Interpretation Code Description Data Teresa rce(s) Supporting Document(s) ID Date Data Source [id number] 08/28/2020 10:18:00 AM [facility] Hospital Name: SHUBHAM BURNETT : 1980 A ge/Sex: 39M Ordering Provider: Danny Agarwal MD Med Rec #: [id number] Reg Status: [facility] Room #: Date of Service: 08/26/20 Report Number: [id number] cc:Danny Agarwal MD Send Report To: [id number] XRP/XR Ankle Lt Min. 3 Views Reason [...] Date/Time: 08/26/20 1326 Transcribed Date/Time: 08/28/20 1018 Hot End Operator: BLANCA Name Value Range Interpretation Code Description Data Teresa rce(s) Supporting Document(s) ID Date Data Source [id number] 08/19/2020 10:43:00 AM [facility] Name Value Range Interpretation Code Description Data Teresa rce(s) Supporting Document(s) Color,Urine Colorl-Dk Y Normal (applies to non-numeric res ults) [facility] POSSIBLE MEDICATION INTERFERENCE UNABLE TO PERFORM DIPSTICK ANALYSIS. Clarity,Urine Clear Normal (applies to non-numeric re sults) [facility] RBC,Urine None Seen Normal (applies to non-numeric resul ts) [facility] WBC,Urine None Seen Normal (applies to non-numeric resul ts) [facility] Casts,Urine None Seen Normal (applies to non-numeric resu lts) [facility] Squamous Cells,Urine None Seen [facility] Amorphous Sediment,Urine None Seen [facility] Bacteria,Urine None Seen Normal (applies to non-numeric r esults) [facility] Mucus,Urine None [facility] Date Data Source [id number] 08/19/2020 01:54:00 PM [facility] Name Value Range Interpretation Code Description Data Teresa rce(s) Supporting Document(s) Vitamin D, Total 30.0-100.0 Below low normal [facility] ID Date Data Source [id number] 08/19/2020 10:30:00 AM [facility] Name Value Range Interpretation Code Description Data Teresa rce(s) Supporting Document(s) Magnesium 1.8-2.4 Normal (applies to non-numeric resul ts) [facility] ID Date Data Source [id number] 08/19/2020 10:30:00 AM [facility] Name Value Range Interpretation Code Description Data Teresa rce(s) Supporting Document(s) Triglycerides 46 mg/dL <150 Normal (applies to non-numeric re sults) [facility] Cholesterol 111 mg/dL 100-200 Normal (applies to non-numeric resu lts) [facility] LDL Cholesterol Calculated 46 0-130 Normal (applies to n on-numeric results) [facility] HDL Cholesterol 56 mg/dL 40-60 Normal (applies to non-numeric results) [facility] Cholesterol/HDL Ratio 3.6-6.7 Below low normal [facility] ID Date Data Source [id number] 08/19/2020 10:30:00 AM [facility] Name Value Range Interpretation Code Description Data Teresa rce(s) Supporting Document(s) Thyroid Stimulate Hormone TSH 0.358-3.74 No rmal (applies to non-numeric results) [facility] ID Date Data Source [id number] 08/19/2020 10:30:00 AM [facility] Name Value Range Interpretation Code Description Data Teresa rce(s) Supporting Document(s) Sodium 131 mmol/L 136-145 Below low normal [facility] Potassium 3.5-5.1 Below low normal [facility] sp[facility] Chloride 91 mmol/L 98-107 Below low normal [facility] Carbon Dioxide CO2 21-32 Normal (applies to non-numer ic results) [facility] Anion Gap 5.0-16.0 Normal (applies to non-numeric resul ts) [facility] BUN 8 mg/dL 7-18 Normal (applies to non-numeric results) [facility] Creatinine,Serum 0.8-1.5 Normal (applies to non-numeric results) [facility] GFR >60 Normal (applies to non-numeric results) [facility] Glucose Level 131 mg/dL 60-99 Above high normal [facility] Reference range is only applicable when patient is fasting Note the following drug interference: Sulfasalazine Sulfapyridine Can see falsely depressed Can see falsely elevated result with up to 17% results with up to 11% decrease in measurement increase in measurement Recommend patients be collected for this test prior to administration of either drug. Calcium 8.5-10.1 Normal (applies to non-numeric resul ts) [facility] Bilirubin,Total 0.1-1.9 Normal (applies to non-numeric results) [facility] SGOT(AST) 71 U/L 15-37 Above high normal [facility] Note the following drug interference: Sulfasalazine Sulfapyridine Can see falsely depressed Can see falsely elevated result with up to 10% results with up to 10% decrease in measurement increase in measurement Recommend patients be collected for this test prior to administration of either drug. SGPT(ALT) 110 U/L 12-78 Above high normal [facility] Note the following drug interference: Sulfasalazine Sulfapyridine Can see falsely depressed Can see falsely elevated result with up to 29% results with up to 10% decrease in measurement increase in measurement Recommend patients be collected for this test prior to administration of either drug. Alkaline Phosphatase 110 U/L 38-126 Normal (applies to non-num denis results) [facility] can increase Alkaline Phosp le vels up to 2 times the normal adult value. Normal values for children and adolescents are 2 to 3 times the normal adult value. Total Protein 6.0-8.2 Normal (applies to non-numeric re sults) [facility] Albumin Level 3.4-5.0 Normal (applies to non-numeric re sults) [facility] ID Date Data Source [id number] 08/19/2020 10:38:00 AM EST [facility] Name Value Range Interpretation Code Description Data Teresa rce(s) Supporting Document(s) White Blood Count 3.5-10.5 Normal (applies to non-numeri c results) [facility] Red Blood Count 4.30-5.70 Normal (applies to non-numeric results) [facility] Hemoglobin 13.5-17.5 Normal (applies to non-numeric resul ts) [facility] Hematocrit 38.8-50.0 Normal (applies to non-numeric resul ts) [facility] Mean Corpuscular Volume 81.2-95.1 Normal (applies to non- numeric results) [facility] Mean Corpuscular Hgb 25.6-32.2 Normal (applies to non-num denis results) [facility] Mean Corpuscular Hgb Conc 32.0-36.0 Normal (applies to no n-numeric results) [facility] Red Cell Distribution Width 11.8-15.6 Normal (appli es to non-numeric results) [facility] Platelet Count 222 x10 3/uL 150-450 Normal (applies to non-numeric results) [facility] Mean Platelet Volume 9.4-12.4 Below low normal [facility] Neutrophils% (Auto) 31.0-71.0 Above high normal [facility] Lymphocytes% (Auto) 20.0-55.0 Below low normal [facility] Monocytes% (Auto) 4.0-12.0 Normal (applies to non-numeri c results) [facility] Eosinophils% (Auto) 1.0-8.0 Below low normal [facility] Basophils% (Auto) 0.0-2.0 Normal (applies to non-numeri c results) [facility] Immature Granulocytes% (Auto) 0.0-2.0 Normal (harshil lies to non-numeric results) [facility] Neutrophils# (Auto) 1.50-6.20 Normal (applies to non-nume justin results) [facility] Lymphocytes# (Auto) 1.20-4.00 Normal (applies to non-nume justin results) [facility] Monocytes# (Auto) 0.00-0.90 Normal (applies to non-numeri c results) [facility] Eosinophils# (Auto) 0.00-0.50 Normal (applies to non-nume justin results) [facility] Basophils# (Auto) 0.00-0.20 Normal (applies to non-numeri c results) [facility] Immature Granulocytes# (Auto) 0.00-7.00 No rmal (applies to non-numeric results) [facility] ID Date Data Source [id number] 04/22/2020 06:36:00 PM EDT [facility] Name: SHUBHAM BURNTET : 1980 A ge/Sex: 39M Ordering Provider: Sherlyn Shannon MD Med Rec #: [id number] Reg Status:DEP REF Room #: Date of Service: 04/22/20 Report Number: [id number] cc: Send Report To: Patient: SHUBHAM BURNETT ID: [id number] : 1980 Age: 39 Gender: male Height: 5ft 11in Weight: 220lbs Physician: Dr. Shannon Carrot Grader Inspector: Arlene Jo Ref. Provider: Dr. Shannon Recording [...] DESCRIPTION: The recording was performed on a [employer] EEG machine utilizing at least 21 electrodes [...] File>> Exam Date/Time: 04/22/20 0746 Order #: [id number] Dictation Date/Time: 04/22/201899 Transcribed Date/Time: 04/22/20 183 Hot End Operator: Name Value Range Interpretation Code Description Data Teresa rce(s) Supporting Document(s) ID Date Data Source [id number] 03/09/2020 06:14:00 PM EDT [facility] Collected By: Nurse Initials: AF Time Collected: 1756 Collected By: Nurse Initials: AF Time Collected: 1756 Name Value Range Interpretation Code Description Data Teresa rce(s) Supporting Document(s) Color,Urine Colorl-Dk Y Normal (applies to non-numeric res ults) [facility] Clarity,Urine Clear Normal (applies to non-numeric re sults) [facility] Specific [place],Urine 1.005-1.030 Normal (applies to non- numeric results) [facility] pH,Urine 5.0-8.0 Normal (applies to non-numeric resul ts) [facility] Protein,Urine Negative Normal (applies to non-numeric re sults) [facility] Glucose,Urine Negative Normal (applies to non-numeric re sults) [facility] Ketones,Urine Negative [facility] Blood,Urine Negative Normal (applies to non-numeric resu lts) [facility] Bilirubin,Urine Negative [facility] pital Urobilinogen,Urine 0.2-1.0 Normal (applies to non-numer ic results) [facility] Leukocyte Esterase,Urine Negative Normal (applies to non -numeric results) [facility] Nitrite,Urine Negative Normal (applies to non-numeric re sults) [facility] ID Date Data Source [id number] 03/09/2020 06:14:00 PM EDT [facility] Collected By: Nurse Initials: AF Time Collected: 1756 Collected By: Nurse Initials: AF Time Collected: 1756 Name Value Range Interpretation Code Description Data Teresa rce(s) Supporting Document(s) RBC,Urine None Seen Normal (applies to non-numeric resul ts) [facility] WBC,Urine None Seen Normal (applies to non-numeric resul ts) [facility] Casts,Urine None Seen Normal (applies to non-numeric resu lts) [facility] Squamous Cells,Urine None Seen [facility] Bacteria,Urine None Seen Normal (applies to non-numeric r esults) [facility] Mucus,Urine None [facility] Date Data Source [id number] 03/09/2020 06:05:00 PM EDT [facility] Name Value Range Interpretation Code Description Data Teresa rce(s) Supporting Document(s) UDS Phencyclidine Screen Negative Normal (applies to non -numeric results) [facility] UDS Benzodiazepines Screen Negative Normal (applies to n on-numeric results) [facility] UDS Cocaine Screen Negative Normal (applies to non-numer ic results) [facility] UDS Ampetamine Screen Negative Normal (applies to non-nu meric results) [facility] UDS Cannabinoids Screen Negative Normal (applies to non- numeric results) [facility] UDS Opiates Screen Negative Normal (applies to non-numer ic results) [facility] UDS Barbiturates Screen Negative Normal (applies to non- numeric results) [facility] UDS Tricyclic Screen Negative Normal (applies to non-num denis results) [facility] Therapeutic Drug Ranges for Emergency Threshold [...] treatment purposes only. ID Date Data Source [id number] 03/12/2020 12:07:00 PM EDT [facility] Name Value Range Interpretation Code Description Data Teresa rce(s) Supporting Document(s) Levetiracetam result Normal (applies to non-num denis results) [facility] REFERENCE VALUE------ 12.0 - 46.0 ADDITIONAL INFORMATION This test was developed and its performance characteristics determined by [facility] in a manner consistent with CLIA requirements. This test has not been cleared or approved by the U.S. Food and Drug Administration. Test Performed by: [facility] [place] [address] Beader Tender: Marcos Amezcua M.D. Ph.D.; CLIA# [id number] ID Date Data Source [id number] 03/12/2020 11:18:00 AM EDT [facility] Name Value Range Interpretation Code Description Data Teresa rce(s) Supporting Document(s) Levetiracetam result Normal (applies to non-num denis results) [facility] REFERENCE VALUE------ 12.0 - 46.0 ADDITIONAL INFORMATION This test was developed and its performance characteristics determined by [facility] in a manner consistent with CLIA requirements. This test has not been cleared or approved by the U.S. Food and Drug Administration. Test Performed by: [facility] [address] [place] [address] Beader Tender: Marcos Amezcua M.D. Ph.D.; CLIA# [id number] ID Date Data Source [id number] 03/09/2020 05:34:00 PM EDT [facility] Name Value Range Interpretation Code Description Data Teresa rce(s) Supporting Document(s) Sodium 130 mmol/L 136-145 Below low normal [facility] Potassium 3.5-5.1 Below low normal [facility] sp[facility] Chloride 92 mmol/L 98-107 Below low normal [facility] sp[facility] Carbon Dioxide CO2 21-32 Normal (applies to non-numer ic results) [facility] Anion Gap 5.0-16.0 Normal (applies to non-numeric resul ts) [facility] BUN 7 mg/dL 7-18 Normal (applies to non-numeric results) [facility] Creatinine,Serum 0.8-1.5 Normal (applies to non-numeric results) [facility] GFR >60 Normal (applies to non-numeric results) [facility] Glucose Level 113 mg/dL 60-99 Above high normal [facility] Reference range is only applicable when patient is fasting Note the following drug interference: Sulfasalazine Sulfapyridine Can see falsely depressed Can see falsely elevated result with up to 17% results with up to 11% decrease in measurement increase in measurement Recommend patients be collected for this test prior to administration of either drug. Calcium 8.5-10.1 Normal (applies to non-numeric resul ts) [facility] Bilirubin,Total 0.1-1.9 Normal (applies to non-numeric results) [facility] SGOT(AST) 64 U/L 15-37 Above high normal [facility] Note the following drug interference: Sulfasalazine Sulfapyridine Can see falsely depressed Can see falsely elevated result with up to 10% results with up to 10% decrease in measurement increase in measurement Recommend patients be collected for this test prior to administration of either drug. SGPT(ALT) 101 U/L 12-78 Above high normal [facility] Note the following drug interference: Sulfasalazine Sulfapyridine Can see falsely depressed Can see falsely elevated result with up to 29% results with up to 10% decrease in measurement increase in measurement Recommend patients be collected for this test prior to administration of either drug. Alkaline Phosphatase 94 U/L 38-126 Normal (applies to non-num denis results) [facility] can increase Alkaline Phosp le vels up to 2 times the normal adult value. Normal values for children and adolescents are 2 to 3 times the normal adult value. Total Protein 6.0-8.2 Normal (applies to non-numeric re sults) [facility] Albumin Level 3.4-5.0 Normal (applies to non-numeric re sults) [facility] ID Date Data Source [id number] 03/10/2020 05:50:00 AM EDT [facility] Imaging Services Department Imaging Report [address], [place] [address] %(RAD)RES..mtdd.print.filter("line") Name: SHUBHAM BURNETT : 1980 Age/Sex: 39M Ordering Provider: Johny Ray MD Med Rec #: [id number] Reg Status: [facility] Room #: Date of Service: 03/09/20 Report Number: [id number] cc:PCP None Send Report To: [id number] CT/CT Head No Contrast Reason for exam: [...] Date/Time: 03/09/20 1830 Transcribed Date/Time: 03/10/20 0550 Hot End Operator: BLANCA Name Value Range Interpretation Code Description Data Teresa rce(s) Supporting Document(s) ID Date Data Source [id number] 03/10/2020 05:52:00 AM EDT [facility] Imaging Services Department Imaging Report [address], [place] [address] %(RAD)RES..mtdd.print.filter("line") Name: SHUBHAM BURNETT : 1980 Age/Sex: 39M Ordering Provider: Johny Ray MD Med Rec #: [id number] Reg Status: [facility] Room #: Date of Service: 03/09/20 Report Number: [id number] cc:PCP None Send Report To: [id number] XRP/XR Chest Xray Portable Reason for exam: [...] Date/Time: 03/09/20 1830 Transcribed Date/Time: 03/10/20 0552 Hot End Operator: BLANCA Name Value Range Interpretation Code Description Data [facility] rce(s) Supporting Document(s) ID Date Data Source [id number] 12/18/2019 12:01:00 PM EDT [facility] spital Method performed by Isothermal Nucle [...] Name Value Range Interpretation Code Description Data [facility] rce(s) Supporting Document(s) Procedure Vital Signs ID Date Data Source [id number] 08/20/2020 12:02:00 AM EST [facility] spital Name Value Range Interpretation Code Description Data Source(s) Weight (Calculated Kilograms) 100.79 100.79 [facility] Height (Calculated Centimeters) 180.34 180. 34 [facility] Body Mass Index (BMI) 30.9 30.9 [facility] ID Date Data Source [id number] 03/25/2020 05:46:00 PM EDT [facility] spital Name Value Range Interpretation Code Description Data Source(s) Weight Measurement Method 8 8 [facility] Weight (Calculated Kilograms) 100.79 100.79 [facility] Weight 2720 2720 [facility] pital Temperature Source 7 7 [facility] Temperature 98 98 [facility] spital Respiratory Effort 1 1 [facility] Respiratory Rate 16 16 [facility] Pulse Assessment Method 4 4 [facility] Pulse Rate 78 78 [facility] Height (Calculated Centimeters) 180.34 180. 34 [facility] Height 71 71 [facility] pital Blood Pressure 140/101 140/101 [facility] Body Mass Index (BMI) 30.9 30.9 [facility] Weight Measurement Method 8 8 [facility] Weight (Calculated Kilograms) 100.79 100.79 [facility] Weight 2720 2720 [facility] pital Temperature Source 7 7 [facility] Temperature 98 98 [facility] spital Respiratory Effort 1 1 [facility] Respiratory Rate 16 16 [facility] Pulse Assessment Method 4 4 [facility] Pulse Rate 78 78 [facility] pital Height (Calculated Centimeters) 180.34 180. 34 [facility] Height 71 71 [facility] pital Blood Pressure 140/101 140/101 [facility] Body Mass Index (BMI) 30.9 30.9 [facility] Weight Measurement Method 8 8 [facility] Weight (Calculated Kilograms) 100.79 100.79 [facility] Weight 2720 2720 [facility] pital Temperature Source 7 7 [facility] Temperature 98 98 [facility] spital Respiratory Effort 1 1 [facility] Respiratory Rate 16 16 [facility] Pulse Assessment Method 4 4 [facility] Pulse Rate 78 78 [facility] pital Height (Calculated Centimeters) 180.34 180. 34 [facility] Height 71 71 [facility] pital Blood Pressure 140/101 140/101 [facility] Body Mass Index (BMI) 30.9 30.9 [facility] Weight Measurement Method 8 8 [facility] Weight (Calculated Kilograms) 100.79 100.79 [facility] Weight 2720 2720 [facility] pital Temperature Source 7 7 [facility] Temperature 98 98 [facility] spital Respiratory Effort 1 1 [facility] Respiratory Rate 16 16 [facility] Pulse Assessment Method 4 4 [facility] Pulse Rate 78 78 [facility] pital Height (Calculated Centimeters) 180.34 180. 34 [facility] Height 71 71 [facility] pital Blood Pressure 140/101 140/101 [facility] Body Mass Index (BMI) 30.9 30.9 [facility] Weight (Calculated Kilograms) 100.79 100.79 [facility] Height (Calculated Centimeters) 180.34 180. 34 [facility] Body Mass Index (BMI) 30.9 30.9 [facility] ID Date Data Source [id number] 03/14/2020 12:41:00 PM EDT [facility] spital Name Value Range Interpretation Code Description Data Source(s) Weight Measurement Method 8 8 [facility] Weight (Calculated Kilograms) 100.79 100.79 [facility] Weight 3200 3200 [facility] pital Temperature Source 7 7 [facility] Temperature 98.6 98.6 [facility] spital Respiratory Effort 1 1 [facility] Respiratory Rate 16 16 [facility] Pulse Assessment Method 4 4 G [facility] Pulse Rate 113 113 [facility] pital Height (Calculated Centimeters) 180.34 180. 34 [facility] 134/111 134/111 [facility] Body Mass Index (BMI) 30.9 30.9 [facility] Weight Measurement Method 8 8 [facility] Weight (Calculated Kilograms) 100.79 100.79 [facility] Weight 3200 3200 [facility] pital Temperature Source 7 7 [facility] Temperature 98.6 98.6 [facility] spital Respiratory Effort 1 1 [facility] Respiratory Rate 16 16 [facility] Pulse Assessment Method 4 4 G [facility] Pulse Rate 113 113 [facility] pital Height (Calculated Centimeters) 180.34 180. 34 [facility] 134/111 134/111 [facility] Body Mass Index (BMI) 30.9 30.9 [facility] Weight Measurement Method 8 8 [facility] Weight (Calculated Kilograms) 100.79 100.79 [facility] Weight 3200 3200 [facility] pital Temperature Source 7 7 [facility] Temperature 98.6 98.6 [facility] spital Respiratory Effort 1 1 [facility] Respiratory Rate 16 16 [facility] Pulse Assessment Method 4 4 [facility] Pulse Rate 113 113 [facility] Height (Calculated Centimeters) 180.34 180. 34 [facility] 134/111 134/111 [facility] Body Mass Index (BMI) 30.9 30.9 [facility] Weight (Calculated Kilograms) 100.79 100.79 [facility] Height (Calculated Centimeters) 180.34 180. 34 [facility] Body Mass Index (BMI) 30.9 30.9 [facility] ID Date Data Source [id number] 03/12/2020 12:07:00 PM EDT [facility] spital Name Value Range Interpretation Code Description Data Source(s) Weight Measurement Method 8 8 [facility] Weight (Calculated Kilograms) 100.79 100.79 [facility] Weight 3360 3360 [facility] pital Temperature Source 7 7 [facility] Temperature 97.1 97.1 [facility] spital Respiratory Effort 1 1 [facility] Respiratory Rate 18 18 [facility] Pulse Assessment Method 4 4 [facility] P[facility] 76 76 [facility] Height (Calculated Centimeters) 180.34 180. 34 [facility] 71 [facility] Pressure 122/90 122/90 [facility] Body Mass Index (BMI) 30.9 30.9 [facility] Weight Measurement Method 8 8 [facility] Weight (Calculated Kilograms) 100.79 100.79 [facility] Weight 3360 3360 [facility] pital Temperature Source 7 7 [facility] Temperature 98.5 98.5 [facility] spital Respiratory Effort 1 1 [facility] Respiratory Rate 20 20 [facility] Pulse Assessment Method 4 4 G [facility] Pulse Rate 101 101 [facility] pital Height (Calculated Centimeters) 180.34 180. 34 [facility] 71 [facility] 142/100 142/100 [facility] Body Mass Index (BMI) 30.9 30.9 [facility] Weight Measurement Method 8 8 [facility] Weight (Calculated Kilograms) 100.79 100.79 [facility] Weight 3360 3360 [facility] pital Temperature Source 7 7 [facility] Temperature 98.5 98.5 [facility] spital Respiratory Effort 1 1 [facility] Respiratory Rate 20 20 [facility] Pulse Assessment Method 4 4 [facility] Pulse Rate 101 101 [facility] Height (Calculated Centimeters) 180.34 180. 34 [facility] 71 [facility] 142/100 142/100 [facility] Body Mass Index (BMI) 30.9 30.9 [facility] Weight (Calculated Kilograms) 100.79 100.79 [facility] Height (Calculated Centimeters) 180.34 180. 34 [facility] Body Mass Index (BMI) 30.9 30.9 [facility] Weight (Calculated Kilograms) 100.79 100.79 [facility] Height (Calculated Centimeters) 180.34 180. 34 [facility] Body Mass Index (BMI) 30.9 30.9 [facility] ID Date Data Source [id number] 01/21/2020 07:31:00 AM EDT [facility] spital Name Value Range Interpretation Code Description Data Source(s) Weight Measurement Method 8 8 [facility] Weight (Calculated Kilograms) 100.79 100.79 [facility] Weight 3360 3360 [facility] pital Temperature Source 7 7 [facility] Temperature 97.8 97.8 [facility] spital Respiratory Effort 1 1 [facility] Respiratory Rate 16 16 [facility] Pulse Assessment Method 4 4 [facility] Pulse Rate 74 74 [facility] pital Height (Calculated Centimeters) 180.34 180. 34 [facility] Height 71 71 [facility] pital Blood Pressure 155/94 155/94 [facility] Body Mass Index (BMI) 30.9 30.9 [facility] Weight Measurement Method 8 8 [facility] Weight (Calculated Kilograms) 100.79 100.79 [facility] Weight 3360 3360 [facility] pital Temperature Source 7 7 [facility] Temperature 97.8 97.8 [facility] spital Respiratory Effort 1 1 [facility] Respiratory Rate 16 16 [facility] Pulse Assessment Method 4 4 G [facility] Pulse Rate 74 74 [facility] pital Height (Calculated Centimeters) 180.34 180. 34 [facility] Height 71 71 [facility] pital Blood Pressure 153/121 153/121 [facility] Body Mass Index (BMI) 30.9 30.9 [facility] Weight Measurement Method 8 8 [facility] Weight (Calculated Kilograms) 100.79 100.79 [facility] Weight 3360 3360 [facility] pital Temperature Source 7 7 [facility] Temperature 97.8 97.8 [facility] spital Respiratory Effort 1 1 [facility] Respiratory Rate 16 16 [facility] Pulse Assessment Method 4 4 G [facility] Pulse Rate 102 102 [facility] pital Height (Calculated Centimeters) 180.34 180. 34 [facility] Height 71 71 [facility] pital Blood Pressure 153/121 153/121 [facility] Body Mass Index (BMI) 30.9 30.9 [facility] Weight (Calculated Kilograms) 100.79 100.79 [facility] Height (Calculated Centimeters) 180.34 180. 34 [facility] Body Mass Index (BMI) 30.9 309 [facility]
[2020-11-06] MEDS: NS 1,000 ML IV SCH (10:03)
[2020-11-06 11:21] VITALS: BP 146/96
--- NOTE | 2020-11-06 19:27 | ECGEPIP ---
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
== END 2020-11-06 11:29 | disposition home or self-care (01) ==
LOC: M ED 20:49
DX: F10.10 Alcohol abuse, uncomplicated (principal); I45.19 Other right bundle-branch block; R56.9 Unspecified convulsions; Z87.820 Personal history of traumatic brain injury; Z79.899 Other long term (current) drug therapy

== ENCOUNTER 2021-02-09 19:02 | Inpatient (IN) | payer MEDICARE, MEDICAID ==
[~2021-02-09] VITALS: Ht 180.3 cm; Wt 100.0 kg
[2021-02-09 20:24] LABS: HEMATOCRIT 45.1 % (42.0-52.0); HEMOGLOBIN 15.7 g/dl (13.5-17.5); MEAN CORPUSCULAR HEMOGLOBIN 31.3 pg (27.0-33.0); MEAN CORPUSCULAR HGB CONC 34.8 g/dl (32.0-36.5); MEAN CORPUSCULAR VOLUME 89.8 fl (80.0-96.0); PLATELET COUNT, AUTOMATED 224 10^3/uL (150-450); RED BLOOD COUNT 5.02 10^6/uL (4.30-6.10); WHITE BLOOD COUNT 8.9 10^3/uL (4.0-10.0)
[2021-02-09] MEDS ORDERED: OLANZapine 10 MG TAB PO ONE (20:25)
[2021-02-09] MEDS ORDERED: levETIRAcetam 250MG TABLET (KEPPRA) PO ONE (20:25)
[2021-02-09] MEDS ORDERED: NICOTINE 14 MG/24 HR TRANSDERMAL TD ONE (20:25)
[2021-02-09 20:52] LABS: AMPHETAMINES LEVEL URINE NEGATIVE (NEGATIVE); BARBITURATES URINE NEGATIVE (NEGATIVE); BENZODIAZEPINES URINE NEGATIVE (NEGATIVE); CANNABINOIDS URINE NEGATIVE (NEGATIVE); COCAINE METABOLITE URINE NEGATIVE (NEGATIVE); METHADONE URINE NEGATIVE (NEGATIVE); OPIATES URINE NEGATIVE (NEGATIVE); PHENCYCLIDINE URINE NEGATIVE (NEGATIVE)
[2021-02-09] MEDS ORDERED: OXcarbazepine 300 MG TAB PO ONE (21:00)
[2021-02-09 21:28] LABS: ACETAMINOPHEN LEVEL < 2.0 UG/ML (10.0-30.0); ALBUMIN 3.8 GM/DL (3.2-5.2); ALT/SGPT 86 U/L (12-78); BILIRUBIN,DIRECT < 0.1 MG/DL (0.0-0.2); BILIRUBIN,TOTAL 0.2 MG/DL (0.2-1.0); BLOOD UREA NITROGEN 6 MG/DL (7-18); CALCIUM LEVEL 8.7 MG/DL (8.5-10.1); CARBON DIOXIDE LEVEL 29 MEQ/L (21-32); CHLORIDE LEVEL 102 MEQ/L (98-107); GLOMERULAR FILTRATION RATE > 60.0 (>60); GLUCOSE, FASTING 85 MG/DL (70-100); POTASSIUM SERUM 3.9 MEQ/L (3.5-5.1); SALICYLATE LEVEL 3.8 MG/DL (5.0-30.0); SODIUM LEVEL 137 MEQ/L (136-145); TOTAL PROTEIN 7.6 GM/DL (6.4-8.2)
--- NOTE | 2021-02-10 07:49 | ECGEPIP ---
[facility] - ED Test Date: 2021-02-10 Pat Name: SHUBHAM BURNETT Department: Room: - Gender: Male Estate Planning Counselor: KEIRA : 1980 Requested By: Jose Allison Order Number: [id number] Reading MD: Jose Gibson Measurements Intervals [place] Rate: 80 P: 29 SD: 148 QRS: 28 QRSD: 100 T: 21 QT: 392 QTc: 452 Interpretive Statements Normal sinus rhythm Incomplete right bundle branch block SIMILAR TO 11/05/20 Electronically Signed on 02-10-2021 7:49:46 EDT by Jose Gibson
[2021-02-10] MEDS ORDERED: levETIRAcetam 250MG TABLET (KEPPRA) PO ONE (08:00)
[2021-02-10] MEDS ORDERED: OXcarbazepine 300 MG TAB PO ONE (08:00)
[2021-02-10] MEDS ORDERED: LORazepam 1 MG TAB PO PRN (15:50)
[2021-02-10] MEDS ORDERED: ACETAMINOPHEN TAB 650MG DOSE (2X325MG) PO PRN (15:50)
[2021-02-10] MEDS ORDERED: MAALOX 30 ML SUSP *UDC PO PRN (15:50)
[2021-02-10] MEDS ORDERED: MOM 30ML SUSPENSION UDC PO PRN (15:50)
[2021-02-10] MEDS: OXcarbazepine 300 MG TAB PO SCH (20:17)
[2021-02-10] MEDS: levETIRAcetam 250MG TABLET (KEPPRA) PO SCH (20:18)
[2021-02-10] MEDS ORDERED: OLANZapine 10 MG TAB PO SCH (21:00)
[2021-02-11 06:16] VITALS: BP 128/85
[2021-02-11] MEDS: levETIRAcetam 250MG TABLET (KEPPRA) PO SCH ×2 (08:33→20:19)
[2021-02-11] MEDS: OXcarbazepine 300 MG TAB PO SCH ×2 (08:33→20:19)
[2021-02-11] MEDS: NICOTINE 21MG/24HR 1 EA TRANSDERMAL TD SCH (09:28)
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
[2021-02-11 13:07] LABS: HEMOGLOBIN A1c 4.9 %
[2021-02-11 17:13] VITALS: BP 124/82
--- NOTE | 2021-02-11 18:43 | HPEPDOC ---
General Date of Admission February 10, 2021 at 15:49 Date of Service: February 11, 2021 Chief Complaint The patient is a 40-year-old male admitted with a reason for visit of Depressive Do Nos. Source: Patient Exam Limitations: No limitations History of Present Illness Patient is 40 years old male with past medical history of traumatic brain injury, seizure disorder presented to the hospital with suicidal ideation. He reportedly made suicidal threats on the phone to his sister. Patient stated that he was just upset and remorseful and was under the influence of alcohol when he made the statement. During my interview patient denied fever, chills, nausea, vomiting, diarrhea or dysuria Home Medications Scheduled Levetiracetam (Keppra) 1,000 Mg Tab, 2,000 MG PO DAILY, (Reported) Levetiracetam (Keppra) 1,000 Mg Tab, 2,500 MG PO QHS, (Reported) Olanzapine (Olanzapine) 20 Mg Tab, 20 MG PO QHS, (Reported) Oxcarbazepine (Oxcarbazepine) 600 Mg Tablet, 600 MG PO BID, (Reported) Allergies Coded Allergies: No Known Allergies (Unverified , 11/20/16) Past Medical History Medical History Traumatic brain injury, seizure disorder Social History * Smoker: current smoker Alcohol: occationally Drugs: denies A-FIB/CHADSVASC A-FIB History Current/History of A-Fib/PAF?: No Current PO Anticoag Therapy: No Age/Risk Factor Scoring CHADSVASC: CHADSVASC Response (Comments) Value Gender Risk Factor Male 0 Hx of CHF No 0 Hx of HTN No 0 Hx of Stroke/TIA/or VTE No 0 Hx of Diabetes No 0 Hx of Vascular Disease No 0 Total 0 Review of Systems Constitutional: Denies: Chills, Fever Eyes: Denies: Pain ENT: Denies: Head Aches Skin: Denies: Rash Pulmonary: Denies: Dyspnea Cardiovascular: Denies: Chest Pain Gastrointestinal: Denies: Nausea Genitourinary: Denies: Dysuria Hematologic: Denies: Bruising Endocrine: Denies: Polydipsia Musculoskeletal: Denies: Neck Pain Neurological: Denies: Weakness Psych: Reports: Depression Physical Examination General Exam: Negative: Alert, Cooperative Eye Exam: Negative: PERRLA ENT Exam: Negative: Atraumatic Neck Exam: Positive: Supple; Negative: JVD Chest Exam: Positive: Clear to auscultation Heart Exam: Positive: Rate Normal Telemetry: Positive: No significant arrhythmia Abdomen Exam: Positive: Normal bowel sounds Extremity Exam: Negative: Clubbing Skin Exam: Positive: Nl turgor and temperature Neuro Exam: Positive: Normal Gait Psych Exam: Positive: Oriented x 3 Vital Signs Vital Signs Date Time Temp Pulse Resp B/P (MAP) Pulse Ox O2 Delivery O2 Flow Rate FiO2 02/11/21 17:13 98.0 78 18 124/82 (96) Room Air 02/11/21 06:16 95 Laboratory Data Labs 24H Laboratory Tests 2 02/11/21 11:54: Estimated Mean Plasma Glucose 94, Hemoglobin A1c 4.9 Microbiology Microbiology 02/10/21 Respiratory Virus Panel (PCR) ([facility]) - Final, Complete Assessment/Plan Patient is 40 years old male with past medical history of traumatic brain injury, seizure disorder presented to the hospital with suicidal ideation. He reportedly made suicidal threats on the phone to his sister. Patient stated that he was just upset and remorseful and was under the influence of alcohol when he made the statement. During my interview patient denied fever, chills, nausea, vomiting, diarrhea or dysuria Problems (1) Suicidal ideation Status: Acute Problem Text: Defer treatment to psych team (2) Seizure disorder Status: Chronic Problem Text: Continue Keppra Plan / VTE VTE Prophylaxis Ordered?: No VTE Exclusion Pharmacological: At Low Risk for VTE KALPANA NO DO February 11, 2021 18:43
[2021-02-11] MEDS: OLANZapine 5 MG TAB PO SCH (20:19)
[2021-02-11] MEDS: traZODone 50 MG TAB PO PRN (23:52)
[2021-02-12 06:14] VITALS: BP 131/72
[2021-02-12] MEDS: NICOTINE 21MG/24HR 1 EA TRANSDERMAL TD SCH (08:22)
[2021-02-12] MEDS: OXcarbazepine 300 MG TAB PO SCH ×2 (08:22→20:06)
[2021-02-12] MEDS: levETIRAcetam 250MG TABLET (KEPPRA) PO SCH ×2 (08:23→20:07)
--- NOTE | 2021-02-12 11:10 | MHIPNPDOC ---
[facility] Progress Note Progress Note DATE OF SERVICE: 02/12/21 Patient had uneventful stay and has no new complaints except for a little disturbed sleep. He is denying any serious anxiety or depressive symptoms and denies any suicidal thoughts. He is been in good control. States that he spoke with his sister who seems to be quite supportive and he does not feel as upset or angry at her. When asked about his prescription of Zyprexa. Patient states that he was only prescribed to sleep better by his neurologist and he has trouble sleeping without the Zyprexa. He denies having any psychotic symptoms since his accident and does not feel paranoid or delusional and doesn't believe he had any psychotic symptoms. He was explained the nature of the drug and the potential side effects and recommended to decrease the dose to 5 mg orally and eventually stopping. HISTORY: . VITAL SIGNS: See below. NEW TEST RESULTS: . CURRENT MEDICATIONS: See below. MENTAL STATUS EXAMINATION: Patient is a 40-year old male, who is in no acute distress. Speech relevant and organized]. Language skills are good. Thought processes including: Organized. Thought content: . No psychotic symptoms and denies any serious depression. Abstract reasoning, and computation: , Fair. Description of associations: , Fair. Description of abnormal or psychotic thoughts: None. Judgment: , Fair. Insight: fair. . Orientation: , Well oriented where oriented. Recent and remote memory: , Fair. Attention span and concentration: , Fair. Language: . Fund of knowledge: [Average]. Mood: [Euthymic]. Affect: [, Appropriate]. DIAGNOSES: 1. . Adjustment disorder with mixed emotion 2. . 3. . ASSESSMENT:[Maintaining good control and denies any suicidal thoughts] MANAGEMENT PLAN: [. Continue with education and support and lethality evaluation]. TIME SPENT: [15] minutes. Vital Signs Vital Signs Date Time Temp Pulse Resp B/P (MAP) Pulse Ox O2 Delivery O2 Flow Rate FiO2 02/12/21 09:40 Room Air 02/12/21 06:14 98.0 82 14 131/72 (91) 96 Laboratory Data 24H Labs Laboratory Tests 2 02/11/21 11:54: Estimated Mean Plasma Glucose 94, Hemoglobin A1c 4.9 Current Medications Current Medications Medications (Trade) Dose Ordered Sig/Hema Route PRN Reason Start Time Stop Time Status Last Admin Dose Admin Acetaminophen (Tylenol Tab) 650 mg Q6HP PRN PO HEADACHE or DISCOMFORT 5/12/21 15:50 Al Hydrox/Mg Hydrox/Simethicone (Mylanta) 30 ml Q4HP PRN PO HEARTBURN/INDIGESTION 02/10/21 15:50 Levetiracetam (Keppra) 2,000 mg DAILY PO 02/11/21 09:00 02/12/21 08:23 Levetiracetam (Keppra) 2,500 mg QHS PO 02/10/21 21:00 02/11/21 20:19 Lorazepam (Ativan) 1 mg Q6HP PRN PO ANXIETY/AGITATION 02/10/21 15:50 02/12/21 01:13 Magnesium Hydroxide (Milk Of Magnesia) 30 ml DAILYPRN PRN PO CONSTIPATION 02/10/21 15:50 Nicotine (Nicoderm Cq 21mg) 1 patch DAILY TD 02/11/21 09:25 02/12/21 08:22 Olanzapine (ZyPREXA) 5 mg QHS PO 02/11/21 21:00 02/11/21 20:19 Olanzapine (ZyPREXA) 20 mg QHS PO 02/10/21 21:00 02/11/21 10:57 DC 02/10/21 20:16 Oxcarbazepine (Trileptal) 600 mg BID PO 02/10/21 21:00 02/12/21 08:22 Trazodone HCl (Desyrel) 50 mg QHSP PRN PO INSOMNIA 02/10/21 15:50 02/11/21 23:52 Allergies Coded Allergies: No Known Allergies (Unverified , 11/20/16) DANIEL DAVIS M.D. February 12, 2021 11:10
[2021-02-12 16:22] VITALS: BP 126/84
[2021-02-12] MEDS: OLANZapine 5 MG TAB PO SCH (20:06)
[2021-02-12] MEDS: traZODone 50 MG TAB PO PRN (20:45)
[2021-02-13 06:30] VITALS: BP 141/88
[2021-02-13] MEDS: OXcarbazepine 300 MG TAB PO SCH (08:00)
[2021-02-13] MEDS: NICOTINE 21MG/24HR 1 EA TRANSDERMAL TD SCH (08:00)
[2021-02-13] MEDS: levETIRAcetam 250MG TABLET (KEPPRA) PO SCH (08:00)
--- NOTE | 2021-02-13 10:49 | MHDSPDOC ---
[facility] Discharge Summary Discharge Summary DATE OF ADMISSION: February 10, 2021 at 15:49 DATE OF DISCHARGE: 02/13/2021 DISCHARGE DIAGNOSES: 1. [Adjustment disorder with mixed emotion]. 2. . REASON FOR ADMISSION: [40-year-old single male with no previous psychiatric history was admitted on 939 status after he made a suicidal comment to his sister. Patient apparently had the several beers, which his sister didn't approve, and became very upset with. Patient stated that he was not supposed to drink because of his seizure disorder and his sister is very protective over him and was upset with and he got angry and remorseful And made the comment about suicide. After his admission, patient strongly denies any suicidal plan or inte nt, and the comment was made because of his anger, but didn't mean any real intent.] CONSULTANTS INVOLVED: [None] TREATMENT AND PROGRESS ON THE UNIT : [Patient was seen for daily supportive therapy and lethality evaluation and patient maintains that he was not suicidal and he didn't feel particularly depressed and didn't want any antidepressant treatment. He has been receiving Zyprexa from his neurologist, primarily for his sleep and doesn't want to stop taking it, so he was given 5 mg at bedtime. On the unit and was fully explained of the danger and side effect of long-term use of Zyprexa. Patient, however, wants to continue his prescribed dose of 20 mg after his discharge.]. HOSPITAL COURSE: [Patient had uneventful stay and there was no dangerous suicid al behavior, so he will be discharged home to continue follow-up with his neurologist and mental health counseling.] DISCHARGE ASSESSMENT: [, Stable, not suicidal] MENTAL STATUS EXAMINATION ON DISCHARGE: Patient is a -year old male, who is . Speech is [good]. Language skills are [fair]. Thought processes including: [, Organized]. Thought content: . No suicidal thoughts. Abstract reasoning, and computation: Fair . Description of associations: [, Organized. Description of abnormal or psychotic thoughts: None . Judgment: [Failure]. Insight: [Fair]. Orientation to well oriented . Recent and remote memory: [Fair]. Attention span and concentration: [Fair]. Language: . Fund of knowledge: [Average]. Mood: [Euthymic]. Affect: [, Appropriate]. MEDICATIONS ON DISCHARGE: - for . - for . - for . PLAN/FOLLOWUP ARRANGEMENTS: [As arranged by dust production planner scheduler]. The amount of time spent in the coordination of care for this patient was approximately [35] minutes. ETOH/Disorder Med Rx ETOH/DRUG DISORDER RX: N/A Vital Signs/I&Os Vital Signs Date Time Temp Pulse Resp B/P (MAP) Pulse Ox O2 Delivery O2 Flow Rate FiO2 02/13/21 08:20 Room Air 02/13/21 06:30 97.6 110 16 141/88 (105) 96 Laboratory Data Microbiology Microbiology 02/10/21 Respiratory Virus Panel (PCR) ([facility]) - Final, Complete Medications Scheduled Levetiracetam (Keppra) 1,000 Mg Tab, 2,000 MG PO DAILY, (Reported) Levetiracetam (Keppra) 1,000 Mg Tab, 2,500 MG PO QHS, (Reported) Olanzapine (Olanzapine) 20 Mg Tab, 20 MG PO QHS, (Reported) Oxcarbazepine (Oxcarbazepine) 600 Mg Tablet, 600 MG PO BID, (Reported) Allergies Coded Allergies: No Known Allergies (Unverified , 11/20/16) DANIEL DAVIS M.D. February 13, 2021 10:49
== END 2021-02-13 10:53 | disposition home or self-care (01) | DRG 882 ==
LOC: M ED 19:02 → M PSY 02-10 15:49 → M ED 02-10 16:22
PROVIDERS: ADMIT Psychiatry & Neurology Psychiatry; ATTEND Psychiatry & Neurology Psychiatry
DX: F43.25 Adjustment disorder with mixed disturbance of emotions and conduct (principal); R45.851 Suicidal ideations; F17.210 Nicotine dependence, cigarettes, uncomplicated; G40.909 Epilepsy, unspecified, not intractable, without status epilepticus; Z87.820 Personal history of traumatic brain injury; Z79.899 Other long term (current) drug therapy; Z20.822 Contact with and (suspected) exposure to COVID-19

== ENCOUNTER 2021-04-20 12:13 | Emergency (ER) | payer MEDICARE, MEDICAID ==
[~2021-04-20] VITALS: Ht 180.3 cm; Wt 95.5 kg
--- NOTE | 2021-04-20 13:31 | REP ---
INDICATION: Altered Mental Status. COMPARISON: Comparison head CT study is from August 12, 2020.. TECHNIQUE: Helical scanning is acquired. 5 mm axial images were reformatted. Coronal MPR images were generated. FINDINGS: Preliminary digital dust puller radiographs and bone windows again demonstrate a neurotransmitter device with the power plant over the right convexity and intracranial leads coursing from the posterior occipital region anteriorly. Soft tissue images demonstrate these terminating in the temporal lobes bilaterally. The apparatus is unchanged in position and appearance. Bony calvarium is otherwise intact. Visualized paranasal sinuses are clear. No intraorbital abnormality is seen. On on soft tissue window settings, there is mild generalized volume loss. There is no evidence of intracranial hemorrhage, mass, extra-axial fluid collection, infarct, or midline shift. IMPRESSION: Transcranial neurostimulator device with intact bilateral occipito temporal lobe leads. In place unchanged. Mild generalized volume loss. Otherwise negative noncontrast head CT. No change from comparison study August 12, 2020. <Electronically signed by Parker Smart > 04/20/21 [id number]
--- NOTE | 2021-04-20 13:33 | REP ---
INDICATION: AMS; head injury. COMPARISON: None. TECHNIQUE: Helical scanning is acquired and overlapping 2 mm high resolution axial images were generated and reviewed at bone and soft tissue window settings. Coronal and sagittal multiplanar re-formations images are generated. FINDINGS: There is no evidence of cervical spine element fracture. No skull base fracture is seen. Cervical vertebral body heights are preserved. Alignment is normal. Facet joints are normally aligned bilaterally at each cervical level on multiplanar re-formations images. There is no evidence of intraspinal or paraspinal hematoma. No extra vertebral abnormality is seen. Tracheostomy tube is seen in good position. The lung apices are clear. There is some straightening of the normal cervical lordosis. IMPRESSION: Straightening of the normal cervical lordosis. No traumatic abnormality noted. Tracheostomy tube noted in place. Otherwise negative.. <Electronically signed by Parker Smart > 04/20/21 [id number]
[2021-04-20 14:14] LABS: BASO # 0.1 10^3/uL (0.0-0.2); EOS # 0.1 10^3/uL (0.0-0.5); EOS % 1.2 % (0.0-3.0); HEMATOCRIT 41.4 % (42.0-52.0); HEMOGLOBIN 14.8 g/dl (13.5-17.5); LYMPH # 1.8 10^3/uL (1.5-5.0); LYMPH % 19.8 % (24.0-44.0); MEAN CORPUSCULAR HGB CONC 35.7 g/dl (32.0-36.5); MEAN CORPUSCULAR VOLUME 86.6 fl (80.0-96.0); MONO # 0.6 10^3/uL (0.0-0.8); MONO % 6.5 % (2.0-8.0); NEUTROPHILS # 6.4 10^3/uL (1.5-8.5); NEUTROPHILS % 70.8 % (36.0-66.0); PLATELET COUNT, AUTOMATED 215 10^3/uL (150-450); RED BLOOD COUNT 4.78 10^6/uL (4.30-6.10)
[2021-04-20 14:46] LABS: ALBUMIN 3.7 GM/DL (3.2-5.2); ALT/SGPT 98 U/L (12-78); BILIRUBIN,DIRECT 0.1 MG/DL (0.0-0.2); BILIRUBIN,TOTAL 0.4 MG/DL (0.2-1.0); BLOOD UREA NITROGEN 8 MG/DL (7-18); CARBON DIOXIDE LEVEL 24 MEQ/L (21-32); CHLORIDE LEVEL 94 MEQ/L (98-107); CREATININE FOR GFR 0.61 MG/DL (0.70-1.30); ETHYL ALCOHOL (ETHANOL) 0.322 % (0.000-0.010); GLOMERULAR FILTRATION RATE > 60.0 (>60); GLUCOSE, FASTING 85 MG/DL (70-100); POTASSIUM SERUM 3.7 MEQ/L (3.5-5.1); SODIUM LEVEL 128 MEQ/L (136-145); THYROID STIMULATING HORMONE 0.984 uIU/ML (0.358-3.740); TOTAL PROTEIN 7.2 GM/DL (6.4-8.2)
[2021-04-20 16:05] VITALS: BP 122/85
--- NOTE | 2021-04-21 05:11 | ECGEPIP ---
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
== END 2021-04-20 16:05 | disposition home or self-care (01) ==
LOC: M ED 12:13
DX: F10.129 Alcohol abuse with intoxication, unspecified (principal); W01.10XA Fall on same level from slipping, tripping and stumbling with subsequent striking against unspecified object, initial encounter; Y92.9 Unspecified place or not applicable; Y93.01 Activity, walking, marching and hiking; Y99.9 Unspecified external cause status; R56.9 Unspecified convulsions; F32.9 Major depressive disorder, single episode, unspecified; F17.200 Nicotine dependence, unspecified, uncomplicated; Z93.0 Tracheostomy status; Z96.82 Presence of neurostimulator; Z79.899 Other long term (current) drug therapy
CPT/HCPCS: 70450; 72125; 80048; 80076; 80180; 80183; 82077; 82140; 83605; 84443; 85025; 93005; 93041; 94760; 99285; G0480

== ENCOUNTER 2021-06-01 11:17 | Emergency (ER) | payer MEDICARE, MEDICAID ==
[~2021-06-01] VITALS: Ht 177.8 cm; Wt 100.0 kg
--- NOTE | 2021-06-01 12:58 | REPVR ---
PROCEDURE INFORMATION: Exam: CT Head Without Contrast Exam date and time: 06/01/2021 12:40 PM Age: 40 years old Clinical indication: Pain; Other: Epilepticus; Prior surgery; Additional info: Status epilepticus TECHNIQUE: Imaging protocol: Computed tomography of the head without contrast. Radiation optimization: All CT scans at this facility use at least one of these dose optimization techniques: automated exposure control; mA and/or kV adjustment per patient size (includes targeted exams where dose is matched to clinical indication); or iterative reconstruction. COMPARISON: CT Head without contrast 04/20/2021 1:09 PM FINDINGS: Limitations: Examination is slightly limited by metallic artifact. Tubes, catheters and devices: Stable positioning of bilateral neurostimulator probes, which terminate in the region of the medial temporal lobes. Brain: No acute intracranial hemorrhage. No midline shift. Cerebral ventricles: No ventriculomegaly. Paranasal sinuses: Visualized sinuses are unremarkable. No fluid levels. Mastoid air cells: Visualized mastoid air cells are well aerated. Bones/joints: No acute fracture. Soft tissues: Unremarkable. IMPRESSION: No acute intracranial abnormality. Electronically signed by: Abimbola Herring On 06/01/2021 12:58:08 PM
[2021-06-01 13:20] LABS: BASO # 0.1 10^3/uL (0.0-0.2); BASO % 0.7 % (0.0-1.0); EOS # 0.1 10^3/uL (0.0-0.5); HEMATOCRIT 44.8 % (42.0-52.0); HEMOGLOBIN 15.6 g/dl (13.5-17.5); LYMPH # 1.5 10^3/uL (1.5-5.0); LYMPH % 18.3 % (24.0-44.0); MEAN CORPUSCULAR HEMOGLOBIN 31.8 pg (27.0-33.0); MEAN CORPUSCULAR HGB CONC 34.8 g/dl (32.0-36.5); MEAN CORPUSCULAR VOLUME 91.2 fl (80.0-96.0); MONO # 0.5 10^3/uL (0.0-0.8); MONO % 6.3 % (2.0-8.0); NEUTROPHILS # 5.9 10^3/uL (1.5-8.5); NEUTROPHILS % 73.2 % (36.0-66.0); PLATELET COUNT, AUTOMATED 235 10^3/uL (150-450); RED BLOOD COUNT 4.91 10^6/uL (4.30-6.10); WHITE BLOOD COUNT 8.1 10^3/uL (4.0-10.0)
--- NOTE | 2021-06-01 13:29 | REP ---
INDICATION: Status Epilepticus. COMPARISON: Comparison chest x-ray August 12, 2020. TECHNIQUE: Portable upright AP chest radiograph. FINDINGS: The lungs are well inflated and free of infiltrate. Pleural angles are sharp. Heart size is normal. Pulmonary vasculature is not increased. EKG monitoring electrodes overlie the chest. Tracheostomy tube remains in good position. There is an old healed rib fracture on the left. IMPRESSION: No active disease. <Electronically signed by Parker Smart > 06/01/21 [id number]
[2021-06-01 13:49] LABS: AMPHETAMINES LEVEL URINE NEGATIVE (NEGATIVE); BARBITURATES URINE NEGATIVE (NEGATIVE); BENZODIAZEPINES URINE NEGATIVE (NEGATIVE); CANNABINOIDS URINE NEGATIVE (NEGATIVE); COCAINE METABOLITE URINE NEGATIVE (NEGATIVE); METHADONE URINE NEGATIVE (NEGATIVE); OPIATES URINE NEGATIVE (NEGATIVE); PHENCYCLIDINE URINE NEGATIVE (NEGATIVE)
[2021-06-01 14:10] LABS: ALBUMIN 3.7 GM/DL (3.2-5.2); ALT/SGPT 135 U/L (12-78); BILIRUBIN,DIRECT 0.1 MG/DL (0.0-0.2); BILIRUBIN,TOTAL 0.4 MG/DL (0.2-1.0); BLOOD UREA NITROGEN 7 MG/DL (7-18); CARBON DIOXIDE LEVEL 28 MEQ/L (21-32); CHLORIDE LEVEL 99 MEQ/L (98-107); CK-MB VALUE MASS 1.5 NG/ML (<3.6); CPK CREATINE PHOSPHOKINASE 174 U/L (39-308); CREATININE FOR GFR 0.72 MG/DL (0.70-1.30); ETHYL ALCOHOL (ETHANOL) < 0.003 % (0.000-0.010); GLOMERULAR FILTRATION RATE > 60.0 (>60); GLUCOSE, FASTING 85 MG/DL (70-100); MAGNESIUM LEVEL 1.9 MG/DL (1.8-2.4); MB/CK RELATIVE INDEX 0.86 (< OR =4); PHOSPHORUS LEVEL 3.2 MG/DL (2.5-4.9); POTASSIUM SERUM 4.1 MEQ/L (3.5-5.1); SODIUM LEVEL 132 MEQ/L (136-145); TOTAL PROTEIN 7.8 GM/DL (6.4-8.2); TROPONIN I < 0.02 NG/ML (< 0.10)
[2021-06-01] MEDS ORDERED: OXcarbazepine 300 MG TAB PO ONE (15:00)
[2021-06-01 15:27] VITALS: BP 147/92
--- NOTE | 2021-06-01 15:56 | ECGEPIP ---
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
== END 2021-06-01 15:49 | disposition home or self-care (01) ==
LOC: EDBD 11:17 → M ED 11:17
DX: I45.19 Other right bundle-branch block (principal); G40.909 Epilepsy, unspecified, not intractable, without status epilepticus; Z87.820 Personal history of traumatic brain injury; F10.20 Alcohol dependence, uncomplicated; G31.84 Mild cognitive impairment of uncertain or unknown etiology; F17.200 Nicotine dependence, unspecified, uncomplicated; Z79.899 Other long term (current) drug therapy

== ENCOUNTER 2021-08-26 09:09 | Observation (INO) | payer MEDICARE, MEDICAID ==
[~2021-08-26] VITALS: Ht 180.3 cm; Wt 101.2 kg
[2021-08-26] MEDS ORDERED: TRAZ-189 PO (09:36)
[2021-08-26 09:48] LABS: BASO # 0.1 10^3/uL (0.0-0.2); BASO % 0.9 % (0.0-1.0); EOS # 0.1 10^3/uL (0.0-0.5); EOS % 0.9 % (0.0-3.0); HEMATOCRIT 39.5 % (42.0-52.0); HEMOGLOBIN 14.4 g/dl (13.5-17.5); LYMPH # 1.1 10^3/uL (1.5-5.0); LYMPH % 17.8 % (24.0-44.0); MEAN CORPUSCULAR HGB CONC 36.5 g/dl (32.0-36.5); MEAN CORPUSCULAR VOLUME 84.9 fl (80.0-96.0); MONO # 0.5 10^3/uL (0.0-0.8); MONO % 7.4 % (2.0-8.0); NEUTROPHILS # 4.6 10^3/uL (1.5-8.5); NEUTROPHILS % 72.8 % (36.0-66.0); PLATELET COUNT, AUTOMATED 253 10^3/uL (150-450); RED BLOOD COUNT 4.65 10^6/uL (4.30-6.10); WHITE BLOOD COUNT 6.4 10^3/uL (4.0-10.0)
[2021-08-26] MEDS: NS 1,000 ML IV SCH ×2 (10:05→21:25)
[2021-08-26 10:29] LABS: ACETAMINOPHEN LEVEL < 2.0 UG/ML (10.0-30.0); ALBUMIN 4.4 GM/DL (3.2-5.2); ALT/SGPT 56 U/L (12-78); BILIRUBIN,DIRECT 0.3 MG/DL (0.0-0.2); BILIRUBIN,TOTAL 0.6 MG/DL (0.2-1.0); BLOOD UREA NITROGEN 5 MG/DL (7-18); CALCIUM LEVEL 9.3 MG/DL (8.5-10.1); CARBON DIOXIDE LEVEL 23 MEQ/L (21-32); CHLORIDE LEVEL 98 MEQ/L (98-107); ETHYL ALCOHOL (ETHANOL) < 0.003 % (0.000-0.010); GLOMERULAR FILTRATION RATE > 60.0 (>60); GLUCOSE, FASTING 104 MG/DL (70-100); POTASSIUM SERUM 3.8 MEQ/L (3.5-5.1); SALICYLATE LEVEL < 1.7 MG/DL (5.0-30.0); SODIUM LEVEL 132 MEQ/L (136-145); TOTAL PROTEIN 7.9 GM/DL (6.4-8.2)
[2021-08-26] MEDS ORDERED: OXcarbazepine 300 MG TAB PO STA (11:33)
[2021-08-26] MEDS ORDERED: levETIRAcetam 250MG TABLET (KEPPRA) PO ONE (11:35)
[2021-08-26 12:23] LABS: OSMOLALITY SERUM 268 MOSM/KG (275-295)
[2021-08-26] MEDS ORDERED: LORazepam 2 MG TAB PO STA (12:58)
[2021-08-26] MEDS ORDERED: OLANZapine ORAL DISINTEGRATING TAB 5MG PO ONE (13:10)
[2021-08-26] MEDS ORDERED: OXCA600T8 PO (13:13)
[2021-08-26] MEDS ORDERED: HOME MED LIST COMPLETE! XX SCH (13:15)
[2021-08-26 13:43] LABS: AMPHETAMINES LEVEL URINE NEGATIVE (NEGATIVE); BARBITURATES URINE NEGATIVE (NEGATIVE); BENZODIAZEPINES URINE NEGATIVE (NEGATIVE); CANNABINOIDS URINE NEGATIVE (NEGATIVE); COCAINE METABOLITE URINE NEGATIVE (NEGATIVE); METHADONE URINE NEGATIVE (NEGATIVE); OPIATES URINE NEGATIVE (NEGATIVE); PHENCYCLIDINE URINE NEGATIVE (NEGATIVE)
[2021-08-26 13:47] LABS: RSV AMPLIFICATION NEGATIVE (NEGATIVE)
[2021-08-26] MEDS ORDERED: ACETAMINOPHEN TAB 650MG DOSE (2X325MG) PO PRN (14:15)
[2021-08-26 16:35] LABS: BLOOD UREA NITROGEN 6 MG/DL (7-18); CALCIUM LEVEL 9.6 MG/DL (8.5-10.1); CARBON DIOXIDE LEVEL 27 MEQ/L (21-32); CHLORIDE LEVEL 99 MEQ/L (98-107); CREATININE FOR GFR 0.78 MG/DL (0.70-1.30); GLOMERULAR FILTRATION RATE > 60.0 (>60); GLUCOSE, FASTING 155 MG/DL (70-100); POTASSIUM SERUM 3.5 MEQ/L (3.5-5.1); SODIUM LEVEL 133 MEQ/L (136-145)
[2021-08-26 17:48] VITALS: BP 128/82
[2021-08-26] MEDS: levETIRAcetam 250MG TABLET (KEPPRA) PO SCH (21:22)
[2021-08-26] MEDS: OXcarbazepine 300 MG TAB PO SCH (21:23)
[2021-08-26] MEDS: OLANZapine 10 MG TAB PO SCH (21:23)
[2021-08-26 22:00] VITALS: BP 154/99
[2021-08-27] MEDS: NS 1,000 ML IV SCH (05:44)
[2021-08-27 06:04] VITALS: BP 135/82
[2021-08-27 06:24] LABS: HEMATOCRIT 38.6 % (42.0-52.0); HEMOGLOBIN 13.6 g/dl (13.5-17.5); MEAN CORPUSCULAR HGB CONC 35.2 g/dl (32.0-36.5); MEAN CORPUSCULAR VOLUME 87.9 fl (80.0-96.0); PLATELET COUNT, AUTOMATED 231 10^3/uL (150-450); RED BLOOD COUNT 4.39 10^6/uL (4.30-6.10); WHITE BLOOD COUNT 4.7 10^3/uL (4.0-10.0)
[2021-08-27 06:54] LABS: BLOOD UREA NITROGEN 6 MG/DL (7-18); CALCIUM LEVEL 9.1 MG/DL (8.5-10.1); CARBON DIOXIDE LEVEL 26 MEQ/L (21-32); CHLORIDE LEVEL 104 MEQ/L (98-107); CREATININE FOR GFR 0.75 MG/DL (0.70-1.30); GLOMERULAR FILTRATION RATE > 60.0 (>60); GLUCOSE, FASTING 93 MG/DL (70-100); POTASSIUM SERUM 4.1 MEQ/L (3.5-5.1); SODIUM LEVEL 137 MEQ/L (136-145)
[2021-08-27] MEDS: levETIRAcetam 250MG TABLET (KEPPRA) PO SCH ×2 (09:59→21:03)
[2021-08-27] MEDS: OXcarbazepine 300 MG TAB PO SCH ×3 (10:00→21:03)
[2021-08-27 14:00] VITALS: BP 141/95
[2021-08-27] MEDS: OLANZapine 10 MG TAB PO SCH (21:03)
[2021-08-27 21:15] VITALS: BP 147/96
[2021-08-28 05:31] VITALS: BP 145/97
[2021-08-28 06:50] LABS: HEMATOCRIT 40.7 % (42.0-52.0); MEAN CORPUSCULAR HEMOGLOBIN 30.6 pg (27.0-33.0); MEAN CORPUSCULAR HGB CONC 34.4 g/dl (32.0-36.5); MEAN CORPUSCULAR VOLUME 89.1 fl (80.0-96.0); PLATELET COUNT, AUTOMATED 244 10^3/uL (150-450); RED BLOOD COUNT 4.57 10^6/uL (4.30-6.10); WHITE BLOOD COUNT 5.8 10^3/uL (4.0-10.0)
[2021-08-28 07:19] LABS: BLOOD UREA NITROGEN 9 MG/DL (7-18); CARBON DIOXIDE LEVEL 27 MEQ/L (21-32); CHLORIDE LEVEL 101 MEQ/L (98-107); CREATININE FOR GFR 0.71 MG/DL (0.70-1.30); GLOMERULAR FILTRATION RATE > 60.0 (>60); GLUCOSE, FASTING 88 MG/DL (70-100); POTASSIUM SERUM 3.4 MEQ/L (3.5-5.1); SODIUM LEVEL 134 MEQ/L (136-145)
[2021-08-28] MEDS: OXcarbazepine 300 MG TAB PO SCH ×2 (10:35→12:48)
[2021-08-28] MEDS: levETIRAcetam 250MG TABLET (KEPPRA) PO SCH (10:35)
[2021-08-28] MEDS ORDERED: MULTTAB61 PO (10:37)
[2021-08-28] MEDS ORDERED: POTASSIUM CHLORIDE 10MEQ SR TABLET PO ONE (11:00)
== END 2021-08-28 14:03 | disposition home or self-care (01) ==
LOC: EDBD 09:09 → M ED 09:09 → M ED INP 13:25 → ENRESERV 16:31 → M MSPAV 17:50
PROVIDERS: ADMIT Internal Medicine; ATTEND Internal Medicine
DX: R41.82 Altered mental status, unspecified (principal); E87.1 Hypo-osmolality and hyponatremia; G93.41 Metabolic encephalopathy; E87.6 Hypokalemia; G47.00 Insomnia, unspecified; Z87.820 Personal history of traumatic brain injury; G40.909 Epilepsy, unspecified, not intractable, without status epilepticus; Z79.899 Other long term (current) drug therapy; F17.218 Nicotine dependence, cigarettes, with other nicotine-induced disorders
CPT/HCPCS: 36415; 70450; 80048; 80076; 80143; 80180; 80307; 82077; 82140; 83930; 84145; 84443; 84484; 85025; 85027; 87631; 93005; 93041; 94760; 96360; 96361; 99285; G0378